=== PATIENT | male | born 1950 | race Caucasian/White ===

== ENCOUNTER 2019-09-28 15:59 | Emergency (ER) | payer OTHER, SELFPAY ==
--- NOTE | ~2019-09-28 | CT_ITS ---
EXAMINATION: CT abdomen pelvis w con DATE: 09/28/2019 18:26 INDICATION: Evaluate for colitis TECHNIQUE: Computed tomography (CT) of the abdomen and pelvis was performed without intravenous contr ast. The dose-length product was 232.27 mGy-cm. Automated exposure control and iterative reconstructi on technique were employed. COMPARISON: None. FINDINGS: There is emphysema. There is right middle lobe atelectasis/scarring. Heart size normal. The re is atherosclerosis. Moderate size hiatal hernia. There are gallstones. The spleen, pancreas, adrenal glands and right kidney are unremarkable. There i s a small subcentimeter hypodensity of the left kidney, most likely benign cysts. The stomach is mode rately dilated containing debris. There is a large amount of retained fecal material in the colon. No definite obstruction. No free air or free fluid. There is gas throughout the small bowel which is no t dilated there are multiple air-fluid levels, likely ileus. The bladder is severely distended with b ladder wall thickening. Prostate gland is enlarged. There is subcutaneous soft tissue anterior abdomi nal wall, possibly related to prior injections. Mild-moderate lumbar spondylosis. IMPRESSION: 1. Severely distended bladder with bladder wall thickening, consider cystitis in the appropriate clin ical setting. 2: Nonobstructive bowel pattern. Moderate gas and fecal material in the colon with gas throughout th e small bowel. Findings suggest ileus. 3: Cholelithiasis. Reviewed, dictated and finalized at location A. ER SETTER IMPRESSION: 1. Severely distended bladder with bladder wall thickening, consider cystitis i n the appropriate clinical setting. 2: Nonobstructive bowel pattern. Moderate gas and fecal material in the colon with gas throughout the small bowel. Findings suggest ileus. 3: Cholelithiasis.
[2019-09-28 16:15] VITALS: BP 146/75; PULSE 83; RESP 18; TEMP 37.2; O2SAT 98
--- NOTE | 2019-09-28 16:19 | ED.NAVMDI ---
HPI - Nausea/Vomiting/Diarrhea General Chief complaint: Nausea/Vomiting/Diarrhea <Leonardo King MD - Last Filed: 09/28/19 17:50> Stated complaint: diarrhea x6 days <Leonardo King MD - Last Filed: 09/28/19 17:50> Time Seen by Provider: 09/28/19 16:17 <Leonardo King MD - Last Filed: 09/28/19 17:50> Source: patient <Leonardo King MD - Last Filed: 09/28/19 17:50> Mode of arrival: ambulatory <Leonardo King MD - Last Filed: 09/28/19 17:50> Limitations: no limitations <Leonardo King MD - Last Filed: 09/28/19 17:50> History of Present Illness HPI Narrative: Pt is a 68 y/o male who has a h/o DM, that presents to the ED with c/o diarrhea for 5 days. He reports occasional melena and ABD ache. Pt denies N/V, fever, chills, or hematochezia. He has not been on any Abx recently and has not been around any one sick. Pt is unaware if he ate something to cause his diarrhea. <Leonardo King MD - Last Filed: 09/28/19 17:50> MD elicited complaint: diarrhea <Leonardo King MD - Last Filed: 09/28/19 17:50> Onset (ago): day(s) (5) <Leonardo King MD - Last Filed: 09/28/19 17:50> Description of diarrhea: black tarry <Leonardo King MD - Last Filed: 09/28/19 17:50> Associated nausea: No <Leonardo King MD - Last Filed: 09/28/19 17:50> Associated abdominal pain: Yes <MD Marco Elkins Last Filed: 09/28/19 17:50> Location of pain: diffuse <Leonardo King MD - Last Filed: 09/28/19 17:50> Quality: aching <MD Marco Elkins Last Filed: 09/28/19 17:50> Associated symptoms: denies other symptoms <Leonardo King MD - Last Filed: 09/28/19 17:50> Related Data Home medications: Home Medications Medication Instructions Recorded Confirmed blood-glucose sensor [Dexcom G6 09/28/19 09/28/19 Sensor] blood-glucose transmitter [Dexcom 09/28/19 09/28/19 G6 Transmitter] <Leonardo King MD - Last Filed: 09/28/19 17:50> Allergies/Adverse reactions: Allergies Allergy/AdvReac Type Severity Reaction Status Date / Time meperidine Allergy Unknown Unknown Verified 09/28/19 16:13 <Leonardo King MD - Last Filed: 09/28/19 17:50> Review of Systems Review of Systems: All systems reviewed & are unremarkable except as noted in HPI and below <Leonardo King MD - Last Filed: 09/28/19 17:50> Constitutional: Constitutional: Denies chills and Denies fever(s) <Leonardo King MD - Last Filed: 09/28/19 17:50> Gastrointestinal: Gastrointestinal: Reports abdominal pain (ache), Reports melena, Denies hematochezia, Reports diarrhea, Denies nausea and Denies vomiting <Leonardo King MD - Last Filed: 09/28/19 17:50> PMFSH Past Medical History Medical History: Medical History (Updated 09/28/19 @ 17:50 by Leonardo King MD) Arthritis COPD (chronic obstructive pulmonary disease) Depression Diabetes mellitus Dialysis patient while he was admitted to the hospital GI bleed HLD (hyperlipidemia) HTN (hypertension) Kidney disease Sciatica <Leonardo King MD - Last Filed: 09/28/19 17:50> Surgical History Surgical History: Surgical History (Updated 09/28/19 @ 16:29 by Kee Slade) History of cardiac catheterization <Leonardo King MD - Last Filed: 09/28/19 17:50> Family History Family History: Family History (Updated 03/28/16 @ 23:21 by DOCTOR UNKNOWN) Father Family history of lung cancer Patient's father is Family history of type 2 diabetes mellitus Mother Family history of type 2 diabetes mellitus Sibling Patient's sister is in good health Patient's brother is in good health <Leonardo King MD - Last Filed: 09/28/19 17:50> Social History Social History: Social History Smoking status: Former smoker Alcohol intake: never Gender identity (if verbalized by the patient): Male <Leonadro King MD - Last Filed: 09/01
[2019-09-28 16:31] VITALS: BP 127/70; BP 170/83; BP 181/88; PULSE 79; PULSE 83; PULSE 87
[2019-09-28 16:37] LABS: Basophils Absolute Auto 0.1 K/mm3 (0.0-0.1); Basophils Percent Auto 0.7 % (0.2-1.2); Eosinophils Absolute Auto 0.2 K/mm3 (0-0.3); Eosinophils Percent Auto 1.6 % (0-4.4); Hematocrit 36.5 % (42.0-52.0); Hemoglobin 11.4 g/dL (14.0-18.0); Immature Granulocyte Absolute 0.04 K/mm3 (0.00-0.031); Immature Granulocyte Percent A 0.3 % (0-0.5); Lymphocytes Absolute Auto 1.65 K/mm3 (0.9-3.2); Mean Corpuscular HGB Conc 31.2 g/dl (32-36); Mean Corpuscular Hemoglobin 28.3 pg (26-34); Mean Corpuscular Volume 90.6 fl (80-100); Mean Platelet Volume 10.5 fl (7.4-10.4); Monocytes Absolute Auto 1.1 K/mm3 (0.1-0.6); Monocytes Percent Auto 8.9 % (2.6-8.5); Neutrophils Absolute Auto 9.5 K/mm3 (1.3-6.7); Neutrophils Percent Auto 75.5 % (45.5-73.1); Platelet Count Result 240 k/mm3 (150-375); Red Blood Count 4.03 M/mm3 (4.6-6.20); Red Cell Distribution Width 14.3 % (11.5-14.5); White Blood Count 12.7 K/mm3 (4.5-10.0)
[2019-09-28 16:48] LABS: Alanine Aminotransferase 10 U/L (4-50); Albumin Level 4.3 g/dL (3.5-5.1); Alkaline Phosphatase 82 U/L (38-126); Aspartate Amino Transferase 23 U/L (17-59); Bilirubin,Total 0.4 mg/dL (0.2-1.3); Blood Urea Nitrogen 17 mg/dL (9-20); Calcium 8.6 mg/dL (8.4-10.2); Carbon Dioxide 28 mmol/L (22-30); Chloride 99 mmol/L (98-107); Estimated CRCL calculation 56 ml/min; Estimated Glomerular Filt Rate > 60; Glucose 244 mg/dL (75-110); Lipase 12 U/L (23-300); Potassium 3.7 mmol/L (3.4-5.0); Sodium 136 mmol/L (137-145)
[2019-09-28] MEDS: SODIUM CHLORIDE 0.9% IV 1,000 ML 999 ML IV CONT (16:52)
[2019-09-28 16:57] LABS: Add Urine Microscopic? YES; Appearance Urine Clear (Clear); Bilirubin Urine Negative (Negative); Blood Urine Negative (Negative); Color Urine Yellow (Yellow); Glucose Urine UA 1+ mg/dL (Negative); Ketones Urine Negative (Negative); Leukocyte Esterase Ur Negative LEU/UL (Negative); Mucus Urine Rare /lpf; Nitrate Urine Negative (Negative); Protein Urine Negative (Negative); Specific Grav Ur 1.011 (1.001-1.035); Urobilinogen Urine Negative mg/dL (<2.0); WBC Urine 0-3 /hpf
[2019-09-28 18:06] VITALS: BP 181/87; PULSE 80; RESP 18; O2SAT 99
[2019-09-28 19:46] VITALS: BP 166/78; PULSE 79; RESP 16; TEMP 36.7; O2SAT 100
== END 2019-09-28 19:49 | disposition home or self-care (01) ==
PROVIDERS: Family Medicine; Emergency Provider Emergency Medicine
DX: R19.7 Diarrhea, unspecified (principal); J44.9 Chronic obstructive pulmonary disease, unspecified; M19.90 Unspecified osteoarthritis, unspecified site; E11.9 Type 2 diabetes mellitus without complications; E78.5 Hyperlipidemia, unspecified; I10 Essential (primary) hypertension; N28.9 Disorder of kidney and ureter, unspecified
CPT/HCPCS: 36415; 74177; 80053; 81001; 83690; 85025; 96360; 99284; J7030; Q9967

== ENCOUNTER 2020-10-21 22:54 | Emergency (ER) | payer OTHER, SELFPAY ==
--- NOTE | ~2020-10-21 | CT_ITS ---
EXAMINATION: CT abdomen pelvis w con EXAM DATE: 10/22/2020 00:16 INDICATION: Abdominal pain. TECHNIQUE: Spiral CT of the abdomen and pelvis was performed following intravenous injection of 100 m L Omnipaque 350. Axial, coronal and sagittal images were reviewed. The dose-length product (DLP) fo r this examination was 204.79 mGy-cm. The exposure was tailored according to patient size (auto mA e xposure control), and iterative reconstruction (ASIR) was used as additional dose reduction technique . Comparison is made to prior examination from 09/28/2019, 12/14/2015. FINDINGS: The liver, spleen, adrenal glands and pancreas are unremarkable. There are gallstones with in an otherwise unremarkable gallbladder. No evidence of obstructive biliary disease. Portal and sp lenic veins are patent. Kidneys enhance symmetrically. There is no hydronephrosis. There is a 9 mm left renal lesion, measuring fat attenuation consistent with angiomyolipoma. The pro state is unremarkable. There is severe bladder distention with trabeculation, could be neurogenic gi scott that prostate is normal in size. There are several bladder diverticula, largest right posterior l aterally measuring 4 cm. There is no retroperitoneal or pelvic lymphadenopathy. There is moderate scattered arteriosclerotic disease. The appendix is normal. There is small sliding gastroesophageal hiatal hernia. Distal aspect of esop hagitis may have mild edema. There is moderate amount of colonic stool. No free intraperitoneal gas . The heart is normal in size. There are no pericardial or pleural effusions. There are 2 left lower lobe nodules identified at largest 4 mm, likely granulomas. One of them was im aged on a study in 2016 and is stable. Mild basilar emphysema. Some component of hyperinflation. No f ocal airspace disease. Moderate disc disease L5-S1. There are no osteoblastic or osteolytic lesions identified. Somesome lower abdominal subcutaneous soft tissue densities and calcifications probably injection sites, granulomas. IMPRESSION: 1. Small hiatal hernia. Possible mild esophagitis. 2. Severe bladder distention, diverticulosis. Consider neurogenic bladder. Trabeculation may indicat e chronic cystitis. 3. Moderate amount of colonic stool. Constipation? 4. Small left renal angiomyolipoma. 5. Cholelithiasis. Reviewed, dictated and finalized at location B. RING MACHINE OPERATOR IMPRESSION: 1. Small hiatal hernia. Possible mild esophagitis. 2. Severe bladder distention, diverticulosis. Consider neurogenic bladder. Tra beculation may indicate chronic cystitis. 3. Moderate amount of colonic stool. Constipation? 4. Small left renal angiomyolipoma. 5. Cholelithiasis.
[2020-10-21 23:02] VITALS: PULSE 79; RESP 18; TEMP 36.2; O2SAT 99
[2020-10-21 23:07] VITALS: O2SAT 100
[2020-10-21 23:09] VITALS: BP 161/74
[2020-10-21 23:10] VITALS: BP 161/74
[2020-10-21] MEDS: SODIUM CHLORIDE 0.9% IV 1,000 ML 999 ML IV CONT (23:13)
[2020-10-21] MEDS: ONDANSETRON INJ 4 MG/2 ML VIAL IV PUSH (23:14)
[2020-10-21 23:28] LABS: Basophils Absolute Auto 0.1 K/mm3 (0.0-0.1); Basophils Percent Auto 0.5 % (0.2-1.2); Eosinophils Percent Auto 0.1 % (0-4.4); Hematocrit 44.1 % (42.0-52.0); Hemoglobin 14.1 g/dL (14.0-18.0); Immature Granulocyte Absolute 0.05 K/mm3 (0.00-0.031); Immature Granulocyte Percent A 0.3 % (0-0.5); Lymphocytes Absolute Auto 1.37 K/mm3 (0.9-3.2); Lymphocytes Percent Auto 9.3 % (18.3-44.2); Mean Corpuscular Volume 90.7 fl (80-100); Monocytes Absolute Auto 0.8 K/mm3 (0.1-0.6); Monocytes Percent Auto 5.4 % (2.6-8.5); Neutrophils Absolute Auto 12.5 K/mm3 (1.3-6.7); Neutrophils Percent Auto 84.4 % (45.5-73.1); Platelet Count Result 262 k/mm3 (150-375); Red Blood Count 4.86 M/mm3 (4.6-6.20); Red Cell Distribution Width 13.5 % (11.5-14.5); White Blood Count 14.8 K/mm3 (4.5-10.0)
[2020-10-21 23:40] LABS: Alanine Aminotransferase 12 U/L (4-50); Albumin Level 4.4 g/dL (3.5-5.1); Alkaline Phosphatase 99 U/L (38-126); Anion Gap 9 mmol/L (8-16); Aspartate Amino Transferase 24 U/L (17-59); Bilirubin,Total 0.5 mg/dL (0.2-1.3); Blood Urea Nitrogen 19 mg/dL (9-20); Calcium 9.5 mg/dL (8.4-10.2); Carbon Dioxide 30 mmol/L (22-30); Chloride 102 mmol/L (98-107); Estimated Glomerular Filt Rate > 60; Glucose 144 mg/dL (75-110); Lipase 25 U/L (23-300); Potassium 3.9 mmol/L (3.4-5.0); Sodium 141 mmol/L (137-145)
--- NOTE | 2020-10-21 23:40 | ED.GENADULT ---
HPI - General Adult General Chief complaint: Nausea/Vomiting/Diarrhea Stated complaint: nausea and vomiting. Time Seen by Provider: 10/21/20 23:07 Source: patient and family Mode of arrival: ambulatory Limitations: no limitations History of Present Illness HPI narrative: Patient 69 years old white male presented to the ED with diffuse abdominal pain that started yesterday. Associated with a lot of vomiting. Patient denies any aggravating or relieving factors. Patient denies any fever, chills, diarrhea, shortness of breath, chest pain, back pain, headache or similar symptoms. Patient also denies any history of abdominal surgery, he have history of diabetes, hypertension, smoking. Denies drinking or using drugs. Related Data Home Medications Medication Instructions Recorded Confirmed blood-glucose sensor [Dexcom G6 09/28/19 09/28/19 Sensor] blood-glucose transmitter [Dexcom 09/28/19 09/28/19 G6 Transmitter] Allergies Allergy/AdvReac Type Severity Reaction Status Date / Time meperidine Allergy Unknown Unknown Verified 09/28/19 16:13 Review of Systems Review of Systems: Narrative: CONSTITUTIONAL: Denies fever, chills, or sweats. EYES: Denies visual changes, redness, or discharge. ENT: Denies rhinorrhea, congestion, sore throat, or otalgia. CARDIOVASCULAR: Denies chest pain, palpitations, or edema. RESPIRATORY: Denies cough or dyspnea. GASTROINTESTINAL: Denies abdominal pain, nausea, vomiting, or diarrhea. GENITOURINARY: Denies dysuria or hematuria. SKIN: Denies rash or itching. MUSCULOSKELETAL: Denies back pain, joint pain, or myalgia. NEUROLOGIC: Denies headache, numbness, or weakness. PSYCHIATRIC: Denies anxiety or depression. [facility] Past Medical History Medical History Arthritis COPD (chronic obstructive pulmonary disease) Depression Diabetes mellitus Dialysis patient while he was admitted to the hospital GI bleed HLD (hyperlipidemia) HTN (hypertension) Kidney disease Sciatica Surgical History Surgical History History of cardiac catheterization Family History Family History Father Family history of lung cancer Patient's father is Family history of type 2 diabetes mellitus Mother Family history of type 2 diabetes mellitus Sibling Patient's sister is in good health Patient's brother is in good health Social History Social History Smoking status: Former smoker Alcohol intake: never Gender identity (if verbalized by the patient): Male Exam Narrative: Exam Narrative: General appearance: Well-developed, well-nourished, looks ill, son at the bedside Skin: Normal color Head: Normocephalic, nontraumatic Eyes: Clear conjunctiva ENT: Oropharynx normal, ears normal, nose normal Neck: Supple, nontender Chest and respiratory: Airway patent, no respiratory distress, no accessory muscle use Heart: Regular rate/rhythm Abdomen: Soft, nontender, no organomegaly, quiet bowel sounds Vascular: Normal peripheral pulses, normal capillary refill. Musculoskeletal: Normal range of motion, nontender back Neurologic: Alert and oriented ?3, VETERINARIAN EPIDEMIOLOGIST is normal as tested, no gross motor deficit Course Course Emergency Course: Stable Vital Signs Vital signs: Vital Signs Temperature 36.2 C L 10/21/20 23:02 Pulse Rate 79 10/21/20 23:02 Respiratory Rate 18 10/21/20 23:02 Pulse Oximetry 99 10/21/20 23:02 Temperature 36.2 C L 10/21/20 23:02 Pulse Rate 79 10/21/20 23:02 Respiratory Rate 18 02
[2020-10-22] VITALS (9 sets, daily range): BP systolic 140–148; BP diastolic 58–66; PULSE 77–84; RESP 17–21; O2SAT 98–100
[2020-10-22 00:02] LABS: Add Urine Microscopic? YES; Appearance Urine Clear (Clear); Bilirubin Urine Negative (Negative); Blood Urine Negative (Negative); Color Urine Yellow (Yellow); Glucose Urine UA 2+ mg/dL (Negative); Ketones Urine Negative (Negative); Leukocyte Esterase Ur Negative LEU/UL (Negative); Mucus Urine Rare /lpf; Nitrate Urine Negative (Negative); Protein Urine Negative (Negative); Specific Grav Ur 1.013 (1.001-1.035); Squamous Epithelial Cell Urine Occasional /hpf (Few); Urobilinogen Urine Negative mg/dL (<2.0)
--- NOTE | 2020-10-22 00:04 | PC.NURSE ---
Patient's son, Grayson, leaves his phone number to notify him of patient's status of being admitted or discharged. Grayson's phone number is [phone].
[2020-10-22] MEDS: ONDANSETRON INJ 4 MG/2 ML VIAL IV PUSH (00:58)
--- NOTE | 2020-10-22 01:18 | PC.NURSE ---
Patient's son Grayson calls to get update on patient.
--- NOTE | 2020-10-22 01:31 | PC.NURSE ---
Contacted patient's son to inform him that his father is being discharged. He stated he will be on his way up to pick patient up.
== END 2020-10-22 01:48 | disposition home or self-care (01) ==
PROVIDERS: Emergency Provider Emergency Medicine
DX: R10.9 Unspecified abdominal pain (principal); J44.9 Chronic obstructive pulmonary disease, unspecified; E11.9 Type 2 diabetes mellitus without complications; E78.5 Hyperlipidemia, unspecified; I10 Essential (primary) hypertension; N28.9 Disorder of kidney and ureter, unspecified; Z87.891 Personal history of nicotine dependence; K44.9 Diaphragmatic hernia without obstruction or gangrene; K57.90 Diverticulosis of intestine, part unspecified, without perforation or abscess without bleeding; R93.41 Abnormal radiologic findings on diagnostic imaging of renal pelvis, ureter, or bladder; D17.71 Benign lipomatous neoplasm of kidney; K80.20 Calculus of gallbladder without cholecystitis without obstruction; M19.90 Unspecified osteoarthritis, unspecified site; R93.3 Abnormal findings on diagnostic imaging of other parts of digestive tract
CPT/HCPCS: 36415; 74177; 80053; 81001; 83690; 85025; 96361; 96374; 99284; J2405; J7030; Q9967

== ENCOUNTER 2023-10-29 00:27 | Day surgery (SDC) | payer OTHER, SELFPAY ==
[2023-10-05 15:29] VITALS: BMI 21.7
--- NOTE | 2023-10-27 08:20 | SUR.PREOP ---
Patient called regarding upcoming procedure. Reviewed preop instructions, appointment times, and procedure prep.
--- NOTE | 2023-10-28 14:28 | PM.HPGS ---
History of Present Illness History of Present Illness Consent: Risks, benefits, and alternatives have been discussed and questions answered. Patient agrees to proceed with procedure. Chief complaint: History colon polyps Narrative: Mirza Griffin is a 73 year old male Referred for colon cancer screening. Wheat years ago he had 2 adenomatous polyps removed. Review of Systems Review of Systems: All systems reviewed & are unremarkable except as noted in HPI and below PMFSH Past Medical History Medical History Arthritis COPD (chronic obstructive pulmonary disease) Depression Diabetes mellitus Dialysis patient while he was admitted to the hospital GI bleed HLD (hyperlipidemia) HTN (hypertension) Kidney disease Sciatica Surgical History Surgical History History of cardiac catheterization Family History Family History Father Family history of lung cancer Patient's father is Family history of type 2 diabetes mellitus Mother Family history of type 2 diabetes mellitus Sibling Patient's sister is in good health Patient's brother is in good health Social History Social History Smoking status: Light tobacco smoker Tobacco type: cigarettes Additional smoking assessment comments: previously heavy smoker Alcohol intake: never Substance use: never Substance use type: does not use Living arrangements: alone Gender identity (if verbalized by the patient): Male Spiritual care concerns: No Meds Home Medications and Allergies Home Medications Medication Instructions Recorded Confirmed Type blood-glucose sensor (Dexcom G6 09/28/19 10/05/23 History Sensor device) blood-glucose transmitter (Dexcom 09/28/19 10/05/23 History G6 Transmitter device) dicyclomine 20 mg tablet 20 mg PO TID PRN Abdominal 09/28/19 10/05/23 Rx cramping #10 tabs ondansetron 4 mg disintegrating 4 mg PO Q8H PRN nausea and 10/22/20 10/05/23 Rx tablet vomiting #12 tabs atorvastatin 40 mg tablet 40 mg PO DAILY 10/05/23 10/05/23 History donepezil 10 mg tablet 10 mg PO DAILY 10/05/23 10/05/23 History Allergies Allergy/AdvReac Type Severity Reaction Status Date / Time meperidine Allergy Unknown Unknown Verified 10/29/23 09:36 Exam Resp: Auscultation: clear to auscultation bilaterally Cardio: Rate: regular rate Rhythm: regular rhythm GI: GI Palp: Yes Soft to palpation and No Tenderness to palpation present (GI) Assessment and Plan Assessment and plan (1) Personal history of colonic polyps: Code(s): Z86.010 - Personal history of colonic polyps Status: Acute Assessment and Plan: Colonoscopy with possible biopsy or polypectomy or cautery or injection of substances.
[2023-10-29 09:37] VITALS: BP 118/87; PULSE 90; RESP 18; TEMP 36; O2SAT 100
--- NOTE | 2023-10-29 09:40 | SUR.PREOP ---
Patient's dexcom shows blood sugar to be 123.
[2023-10-29] MEDS: LACTATED RINGERS 1,000 ML 150 ML IV CONT (09:53)
--- NOTE | 2023-10-29 09:54 | SUR.PREOP ---
Patient left insulin pump on for the procedure.
--- NOTE | 2023-10-29 10:15 | WPDANESEPPF ---
Anes - Initial Pre Proc Eval Procedure: Operation Date: 10/29/23 10:30 Proposed Procedures p Colonoscopy - Sabas May MD Date/Time: 10/29/23 10:15 Surgeon: Sabas May MD Pre Op Diagnosis: History colon polyps Patient Data Age: 73 Gender: M Height: 1.71 m Weight: 59.9 kg Last Vital Signs Temp 36.0 C L 10/29/23 09:37 Pulse 90 10/29/23 09:37 Resp 18 10/29/23 09:37 BP 118/87 10/29/23 09:37 Pulse Ox 100 10/29/23 09:37 O2 Del Method Room Air 10/29/23 09:37 Allergies Allergy/AdvReac Type Severity Reaction Status Date / Time meperidine Allergy Unknown Unknown Verified 10/29/23 09:36 Home Medications Medication Instructions Recorded Confirmed Type blood-glucose sensor (Dexcom G6 09/28/19 10/05/23 History Sensor device) blood-glucose transmitter (Dexcom 09/28/19 10/05/23 History G6 Transmitter device) dicyclomine 20 mg tablet 20 mg PO TID PRN Abdominal 09/28/19 10/05/23 Rx cramping #10 tabs ondansetron 4 mg disintegrating 4 mg PO Q8H PRN nausea and 10/22/20 10/05/23 Rx tablet vomiting #12 tabs atorvastatin 40 mg tablet 40 mg PO DAILY 10/05/23 10/05/23 History donepezil 10 mg tablet 10 mg PO DAILY 10/05/23 10/05/23 History Patient hx anesthesia problems: none Family hx anesthesia problems: none Results Review: All pre-operative results and documents have been reviewed as part of the pre-operative evaluation. [facility] Past Medical History Medical History Arthritis COPD (chronic obstructive pulmonary disease) Depression Diabetes mellitus Dialysis patient while he was admitted to the hospital GI bleed HLD (hyperlipidemia) HTN (hypertension) Kidney disease Sciatica Surgical History Surgical History History of cardiac catheterization Family History Family History Father Family history of lung cancer Patient's father is Family history of type 2 diabetes mellitus Mother Family history of type 2 diabetes mellitus Sibling Patient's sister is in good health Patient's brother is in good health Social History Social History Smoking status: Light tobacco smoker Tobacco type: cigarettes Additional smoking assessment comments: previously heavy smoker Alcohol intake: never Substance use: never Substance use type: does not use Living arrangements: alone Gender identity (if verbalized by the patient): Male Spiritual care concerns: No Anes - Eval Final PreProcedure Day of Procedure 10/29/23 10:15 Patient weight: normal Heart: regular rate and rhythm Lungs: clear to auscultation Airway: Mallampati scale class II Neurological: alert and oriented Last oral intake: >/= 8 hours ASA classification: III Emergent: no Anesthetic plan: proceed Anesthesia type and monitoring: general GIVS and standard monitoring Results Review: All pre-operative results and documents have been reviewed as part of the pre-operative evaluation. Informed Consent: The patient's anesthetic plan and its attendant risks and benefits were discussed with the patient/family/POA. Questions were solicited and answers provided to the satisfaction of the patient/family/POA.
[2023-10-29 11:12] VITALS: BP 101/57; PULSE 65; RESP 15; O2SAT 100
[2023-10-29 11:22] VITALS: BP 142/76; PULSE 71; RESP 25; O2SAT 100
[2023-10-29 11:28] LABS: Glucose Point of Care 107 mg/dl (65-105)
[2023-10-29 11:32] VITALS: BP 152/73; PULSE 70; RESP 21; O2SAT 100
== END 2023-10-29 11:36 | disposition home or self-care (01) ==
PROVIDERS: PCP Family Medicine Sports Medicine; Visit Provider Internal Medicine Gastroenterology
PROC: 0DJD8ZZ Inspection of Lower Intestinal Tract, Via Natural or Artificial Opening Endoscopic (ICD-10-PCS; CPT 45378; principal; 2023-10-29 10:30)
DX: Z12.11 Encounter for screening for malignant neoplasm of colon (principal); D12.2 Benign neoplasm of ascending colon; D12.8 Benign neoplasm of rectum; K57.30 Diverticulosis of large intestine without perforation or abscess without bleeding; K64.8 Other hemorrhoids; E11.9 Type 2 diabetes mellitus without complications; E78.5 Hyperlipidemia, unspecified; I10 Essential (primary) hypertension; F17.210 Nicotine dependence, cigarettes, uncomplicated
CPT/HCPCS: 45380; 82948; 88305; J2704; J7120

== ENCOUNTER 2024-10-24 06:43 | Outpatient (CLI) | payer OTHER, SELFPAY ==
--- NOTE | ~2024-10-24 | US_ITS ---
EXAM: ABDOMINAL AORTIC ULTRASOUND HISTORY: SCREENING FOR AAA COMPARISON: None FINDINGS: PROXIMAL ABDOMINAL AORTA (cm):1.7 x 1.8 MID ABDOMINAL AORTA (cm): 1.5 x 1.8 DISTAL ABDOMINAL AORTA (cm): 1.4 x 1.7 DIAMETER OF THE RIGHT PROXIMAL COMMON ILIAC ARTERY (cm): 0.6 x 1.5 DIAMETER OF THE LEFT PROXIMAL COMMON ILIAC ARTERY (cm): 0.7 x 1.5 IMPRESSION: No aneurysmal dilatation of the abdominal aorta or the origin of the bilateral common iliac arteries, as detailed above. Reviewed, dictated and finalized at location A. 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
--- OUTSIDE RECORDS SUMMARY | 2024-10-24 06:46 | XMS_ITS | Clinical Summary ---
Author Organization [facility] Address [address] [place] [address] Phone Care Team Providers Care Telehealth Director Name Role Phone Unavailable Primary Care Provider Unavailabl e Allergies Active Allergy Reactions Criticality Noted Date Comments Meperidine Unknown 09/20/2018 Medications multivitamin (DAILY-WAYNE) tablet Take 1 Tablet by mouth daily. Active aspirin (ECOTRIN EC) 81 mg Tablet, Delayed Release (E.C.) Take 81 mg by mouth daily. Active insulin aspart U-100 (NovoLOG) 100 unit/mL vial Inject by subcutaneous injection. Sliding scale TID 6 Active Dexcom G6 Sensor Device DIRECTED SUBCUTANEOUS EVERY 10 DAYS (E10.65) 90 DAYS 2 Active Dexcom G6 Transmitter Device DIRECTED IN VITRO FOR CONTINUOUS GLUCOSE MONITORING (E10.65) 90 DAYS 2 Active atorvastatin (LIPITOR) 40 mg tabletIndicatio ns:Atherosclero sis of [place] coronary artery of [place] heart without angina pectoris,Type 1 diabetes mellitus with diabetic peripheral angiopathy without gangrene (CMS/HCC) Take 1 Tablet (40 mg) by mouth daily with supper. 90 Tablet 3 2 Active donepeziL (ARICEPT) 10 mg tabletIndicatio ns:Mild cognitive impairment Take 1 Tablet (10 mg) by mouth daily at bedtime. 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 09/20/2018 CAD (coronary atherosclerotic disease) 9 History of heart artery stent 09/20/2018 Metabolic encephalopathy 09/20/2018 Type 1 diabetes mellitus wit h diabetic peripheral angiopathy without gangrene 09/20/2018 Encounters Date Type Department Care Team Description 10/07/2024 External Device Data [facility] ABSTRACTION Provider, Abstract 08/09/[address] [address] Joe Forte MD Needs Appointment 07/25/[address] [address] Joe Forte MD Needs Appointment from Last 3 Months Immunizations Immunization Administration Dates Next Due (PFIZER)(12 YR UP) COVID-19 VACCINE - EMERGENCY USE AUTHORIZATION, MRNA, [id number](PF) 30 MCG/0.3 ML IM SUSP 05/27/2021,11/17/2020,10/27/2020 INFLUENZA VACCINE HIGH DOSE QUADRIVALENT 65 YR UP PF IM 05/30/2021(Deferred: Patient left) INFLUENZA VACCINE QUADRIVALE NT 6 MOS UP PF IM 06/16/2016 Influenza Seasonal Unspecifi ed Formulation IM 06/29/2022,05/30/2019 Influenza Vaccine Tri Split 4+ Im 05/10/2018 Pneumococcal Polysaccharide Vacc 23-n[place] IM SCHIP 06/16/2016 Family History Medical History Relation Name Comments Diabetes Father Diabetes Mother Relation Name Status Comments Daughter Father Maternal Grandfather Maternal Grandmother Mother Paternal Grandfather Paternal Grandmother Social History Tobacco Use Types Packs/Day Years Used Date Smoking Tobacco: Every Day Cigarettes Smokeless Tobacco: Never Tobacco Cessation:Ready to Q uit: Yes Alcohol Use Standard Drinks/Week Comments No 0 (1 standard drink = 0.6 oz pur e alcohol) once a year Financial Resource Strain Answer Date R ecorded How hard is it for you to pa y for the very basics like food, housing, medical care, and heating? Not very hard 05/27/2022 Food Insecurity Answer Date Recorded In the past 12 months, have you worried that your food would run out before you had money to buy more? Never true 05/27/2022 In the past 12 months, did y ou run out of food and didn't have money to buy more? Never true 05/27/2022 Transportation Needs Answer Date Record ed In the past 12 months, has l ack of transportation kept you from medical appointments or from getting medications? No 05/27/2022 Lack of Transportation (Non-Medical) Not on file 05/27/2022 Sex and Gender Information Value Date Recorded Sex Assigned at Not on file Legal Sex Male 7:24 AM CDT Gender Identity Not on file Sexual Orientation Not on file Last Filed Vital Signs Vital Sign Reading Time Taken Comments Blood Pressure 114/62 12/19/2022 10:41 AM CDT Pulse 103 12/19/2022 10:41 AM CDT Temperature 35.6 C (96.1 F) 12/19/2022 10:41 AM CDT Respiratory Rate 20 05/30/2021 11:0 8 AM CDT Oxygen Saturation 99% 12/19/2022 10: 41 AM CDT Inhaled Oxygen Concentration - - Weight 62.9 kg (138 lb 11.2 oz) 023 10:41 AM CDT Height 170.2 cm (5' 7 ) 12/19/2022 10:4 1 AM CDT Body Mass Index 21.72 12/19/2022 10:41 AM CDT Plan of Treatment Health Maintenance Due Date Last Done Comments DTAP/TDAP/TD VACCINES (1 - Tdap) 1971 FIT-DNA Q 3 years 1997 FIT/FOBT Q 1 year 1997 Flex Sig/CT Colonography Q 5 years 1997 RSV VACCINE (60+ or ) (1 - Risk 60-74 years 1-dose series) 2012 PNEUMOCOCCAL VACCINE 65+ YEA RS (2 of 2 - PCV) 06/16/2017 06/16/2016 DIABETES ANNUAL RETINAL EXAM 12/30/2022 12/30/2021, 04/15/2021 DIABETES MICROALBUMIN ANNUAL SCREEN 01/03/2024 01/02/2023, 06/04/2021 LDL CHOLESTEROL ANNUAL 01/03/2024 3, 06/04/2021, 01/03/2016 DIABETES HBA1C Q 6 MONTHS 02/16/20242022, 01/02/2023, 06/04/2021, Additional history exists INFLUENZA VACCINE (#1) 2024 3, 07/01/2022, 06/29/2022, Additional history exists COVID-19 Vaccine (2023-2 5 season) 2024 05/27/2021, 11/17/2020, 10/27/2020 DIABETES ANNUAL FOOT EXAM 08/17/20242022, 09/22/2022, 09/23/2021 COLORECTAL SCREENING 10/28/2033 10/29/2023 Colorectal Cancer Screening 10/28/2033 ZOSTER VACCINE Completed 01/03/2023, 07/01/2022 Procedures Procedure Name Priority Date/Time Associated Diagnosis Comments MICROALBUMIN/CREATIN INE RATIO, RANDOM UR Routine 01/02/2023 9:18 AM CDT LIPID RFLX Routine 01/02/2023 9:18 AM CDT Type 1 diabetes mellitus with diabetic peripheral angiopathy without gangrene (CMS/HCC) HEMOGLOBIN A1C Routine 01/02/2023 9:18 AM CDT Type 1 diabetes mellitus with diabetic peripheral angiopathy without gangrene (CMS/HCC) HM DIABETES EYE EXAM Routine 12/30/2021 from Last 3 Months or Most Recently Relevant to Health Maintenance Results * LIPID RFLX (01/02/2023 9:18 AM CDT) Pathologist [facility] CHOLESTEROL 121 <200 mg/dL Poptip tricia Syed HDL 61 > OR = 40 mg/dL codetagAlexander Syed TRIGLYCERIDE 97 <150 mg/dL codetagAlexander Syed LDL CALCULATED 42 mg/dL (calc) codetagAlexander Syed Comment: Reference range: <100 Desirable range <100 mg/dL for primary prevention; <70 mg/dL for patients with CHD or diabetic patients with > or = 2 CHD risk factors. LDL-C is now calculated using the Esvin calculation, which is a validated novel method providing better accuracy than the Friedewald equation in the estimation of LDL-C. Luis Armando BLACK et al. SAGAR. 2013;310(19): 0341-9262 (http://education.ClaimKit.bizHive/faq/WFS231) CHOL/HDL RATIO 2.0 <5.0 (calc) [facility] TOTAL NON-HDL CHOL(LDL+VLDL) 60 <130 mg/dL (calc) [facility] Comment: For patients with diabetes plus 1 major ASCVD risk factor, treating to a non-HDL-C goal of <100 mg/dL (LDL-C of <70 mg/dL) is considered a therapeutic option. FASTING:YES FASTING: YES Test Performed at: [facility] [address] [place] [address] Bridget Clemente Blood 01/02/2023 9:18 AM CDT 01/02/2023 9:22 AM CDT Sheela Kim NP CHEMISTRY ORDERABLES Final R esult Performing Organization Address City/[facility]/ZIP Code Phone Number [facility] [phone] [facility] [address] [place] [address] * MICROALBUMIN/CREATININE RATIO, RANDOM UR (01/02/2023 9:18 AM CDT) Creatinine, Urine 34 20 - 320 mg/dL [facility] MICROALBUMIN, URINE 1.0 See Note: mg/dL [facility] Comment: Reference Range: Reference Range Not established MICROALBUMIN/CREAT RATIO, UR 29 <30 mcg/mg creat [facility] Comment: The ADA defines abnormalities in albumin excretion as follows: Albuminuria Category Result (mcg/mg creatinine) Normal to Mildly increased <30 Moderately increased 30-299 Severely increased > OR = 300 The ADA recommends that at least two of three specimens collected within a 3-6 month period be abnormal before considering a patient to be within a diagnostic category. FASTING:YES FASTING: YES Test Performed at: [facility] [address] [address] Bridget Clemente MD 01/02/2023 9:18 AM CDT 01/02/2023 9:22 AM CDT Sheela Kim NP URINE ORDERABLES Final Resul t Performing Organization Address City/State/ZIP Al de Phone Number [facility] [phone] [facility] [place] [address] [address] [facility] [place] [address] * (ABNORMAL) HEMOGLOBIN A1C (01/02/2023 9:18 AM CDT) HEMOGLOBIN A1C 8.9(H) <5.7 % of total Hgb codetagAlexander Syed Comment: For someone without known diabetes, a hemoglobin A1c value of 6.5% or greater indicates that they may have diabetes and this should be confirmed with a follow-up test. For someone with known diabetes, a value <7% indicates that their diabetes is well controlled and a value greater than or equal to 7% indicates suboptimal control. A1c targets should be individualized based on duration of diabetes, age, comorbid conditions, and other considerations. Currently, no consensus exists regarding use of hemoglobin A1c for diagnosis of diabetes for children. ESTIMATED AVERAGE GLUCOSE (MG/DL) 209 mg/dL [facility] ESTIMATED AVERAGE GLUCOSE (MMOL/L) 11.6 mmol/L [facility] Comment: FASTING:YES FASTING: YES Test Performed at: [facility] [address] [place] [address] Bridget Mooney Blood 01/02/2023 9:18 AM CDT 01/02/2023 9:22 AM CDT us Sheela Kim BOX BENDER CHEMISTRY ORDERABLES Final R esult Performing Organization Address City/[facility] Code Phone Number [facility] [phone] [place] [address] [place] [address] * HM DIABETES EYE EXAM (12/30/2021) us Abstract Provider HEALTH MAINTENANCE Edited Resu lt - Final Performing Organization Address City/[facility] Co de Phone Number [facility] CLIA# [id number] [address] [place] [address] from Last 3 Months or Most Recently Relevant to Health Maintenance Insurance [facility] Address: [place] [address]
--- OUTSIDE RECORDS SUMMARY | 2024-10-24 06:46 | XMS_ITS | Clinical Summary ---
Author Organization [facility] Address [address] [place] [address] Phone Care Team Providers Care Recreational Programs Director Name Role Phone Unavailable Primary Care Provider Unavailabl e Medications Medication Sig Dispensed Refills Start Date End Date Status ipratropium HFA (ATROVENT HFA) 17 MCG/ACT inhaler q6h prn 0 01/11/2016 Active temazepam (RESTORIL) 7.5 MG capsule 1 qhs prn 0 01/11/2016 Active insulin glargine (LANTUS) 100 UNIT/ML injection as dir 0 01/11/2016 Active insulin aspart (NOVOLOG) 100 UNIT/ML injection as dir 0 01/11/2016 Active pantoprazole (PROTONIX) 40 MG EC tablet 1 q12h 0 01/11/2016 Active albuterol HFA (PROAIR HFA) 108 (90 Base) MCG/ACT inhaler prn q6h 0 01/11/2016 Active Social History Tobacco Use Types Packs/Day Years Used Date Smoking Tobacco: Never Assessed Sex and Gender Information Value Date Recorded Sex Assigned at Not on file Gender Identity Not on file Sexual Orientation Not on file Plan of Treatment Not on file
--- OUTSIDE RECORDS SUMMARY | 2024-10-24 06:46 | XMS_ITS | Clinical Summary ---
Author Organization [facility] Address [address] [place] [address] Care Team Providers Care Taxation Economist Name Role Phone Joe Forte MD Primary Care Provider Unav ailable Allergies Active Allergy Reactions Criticality Noted Date Comments Meperidine Unknown 09/20/2018 Medications aspirin 81 MG chewable tablet Chew 81 mg by mouth daily. Active multi vitamin/mineral s tablet Take 1 tablet by mouth daily. Active Continuous Blood Gluc Transmit (DEXCOM G6 TRANSMITTER) [facility] 11/14/2020 Active atorvastatin 40 MG tablet Take 40 mg by mouth nightly at bedtime. Active insulin aspart 100 UNIT/ML Solution Cartridge injection (CARTRIDGE) Inject into the skin 3 (three) times daily with meals. Insulin pump Active HYDROcodone-carson taminophen (NORCO) 5-325 MG tabletIndicatio ns:Acute Pain < 7 Day Supply Take 1 tablet by mouth every 4 (four) hours as needed. Indications: Acute Pain < 7 Day Supply 40 tablet 03/22/2021 Active Family History Medical History Relation Comments No Known Problems Brother 1 No Known Problems Brother 2 Cancer Father Diabetes Father Lung Cancer Father Diabetes Mother No Known Problems Sister 1 No Known Problems Sister 2 No Known Problems Son Relation Status Comments Brother 1 Alive Brother 2 Alive Daughter (Age 6) Was born a pree daryl Father Mother Sister 1 Sister 2 Son Alive Social History Tobacco Use Types Packs/Day Years Used Date Smoking Tobacco: Every Day Cigarettes 0.2 35 Smokeless Tobacco: Never Comments:3-4 cigs/day Alcohol Use Standard Drinks/Week Comments Not Currently 0 (1 standard drink = 0.6 oz pur e alcohol) Quit 1987 Sex and Gender Information Value Date Recorded Sex Assigned at Not on file Legal Sex Male 11:44 AM CDT Gender Identity Not on file Sexual Orientation Not on file Last Filed Vital Signs Vital Sign Reading Time Taken Comments Blood Pressure 110/62 03/22/2021 9:50 AM CDT Pulse 82 03/22/2021 9:50 AM CDT Temperature 36.1 C (97 F) 03/22/2021 9:50 AM CDT Respiratory Rate 16 03/22/2021 9:50 AM CDT Oxygen Saturation 98% 03/22/2021 9:50 AM CDT Inhaled Oxygen Concentration - - Weight 60.1 kg (132 lb 7.9 oz) 03/22/2021 6:31 A M CDT Height 170.2 cm (5' 7 ) 03/22/2021 6:31 AM CDT Body Mass Index 20.75 03/22/2021 6:31 AM CDT Plan of Treatment Health Maintenance Due Date Last Done Comments Colorectal Cancer Screening Colonoscopy (10 Years) 1952 Hepatitis C 1970 DTaP, Tdap and Td Vaccines ( 1 - Tdap) 1971 Zoster Vaccines (1 of 2) 2002 Pneumococcal Vaccine: 65+ Years (2 of 2 - PCV) 06/16/2017 06/16/2016 Annual Medicare Wellness Visit 2017 COVID-19 Vaccine (3 - 2023-2 5 season) 2024 11/17/2020, 10/27/2020 Influenza Adult (#1) 2024 05/30/2019, 05/10/2018, 06/16/2016 RSV Immunization or 60+ Years (1 - 1-dose 75+ series) 2027 Meningococcal B Vaccine Aged Out No l onger eligible based on patient's age to complete this topic Meningococcal Vaccine Aged Out No dwayne parihs eligible based on patient's age to complete this topic RSV Immunizations Under 20 Months Aged Out No longer eligible b ased on patient's age to complete this topic Insurance [employer] Advance Directives Documents on File Type Date Recorded Patient Cylinder Filler Expl anation Advance Directives and Living Will 03/25/2021 8:02 AM 12-14-2015 signed POA for HC * Full Code (Latest Code Status on File) Date Activated Date Inactivated Comments 12/10/2020 5:13 PM 12/11/2020 1:45 PM Care Teams Taxation Economist Relationship Specialty Start Date End Date Joe Forte MD PCP - General FAMILY PRACTICE 12/10/20
--- OUTSIDE RECORDS SUMMARY | 2024-10-24 06:46 | XMS_ITS | Referral Summary ---
Author Organization [facility] [address] Address [address] [place] [id number] Care Team Providers Care Cable Tender Name Role Phone Myron Enamorado MD Unavailable [phone] Joshua Hyatt MD [facility] Encounters Date Type Department Care Team Description 10/19/2024 Telephone [facility] Primary Care at [address] [phone] Joshua Hyatt MD Call Back 10/05/2024 10:30 AM CHIEF OPERATOR SYNTHESIS Office Visit [facility] Primary Care at [address] [phone] Joshua Hyatt MD Type 1 diabetes mellitus with diabetic polyneuropathy (HCC) (Primary Dx); Mild dementia without behavioral disturbance, psychotic disturbance, mood disturbance, or anxiety, unspecified dementia type (HCC); Hyperlipidemia due to type 1 diabetes mellitus (HCC); Atherosclerosis of [place] coronary artery of [place] heart without angina pectoris; Tobacco abuse; Screening for abdominal aortic aneurysm 09/16/2024 ACO Quality [facility] Accountable Care Organization [address] [place] [id number] Racheal Escobar MA from Last 3 Months Allergies Active Allergy Reactions Criticality Noted Date Comments Meperidine Dizziness Low Medications oskayjna-qea-VE-ly copen-lutein (SENTRY SENIOR) 0.4-300-250 mg-mcg-mcg tablet 0 0 07/23/20 16 Active blood-glucose transmitter (Dexcom G6 Transmitter) deviceIndications: Type 1 diabetes mellitus with diabetic polyneuropathy (HCC) DIRECTED IN VITRO FOR CONTINUOUS GLUCOSE MONITORING (E10.65) 90 DAYS 10/11/19 22 Active NovoLOG 100 unit/mL vial for injectionIndicatio ns:Type 1 diabetes mellitus with diabetic polyneuropathy (HCC) Inject under the skin as directed With insulin pump 01/11/20 16 Active insulin degludec (TRESIBA) 100 unit/mL (3 mL) pen for injection Inject 0.15 mL (15 Units total) under the skin nightly 3 mL 01/21/20 24 Active insulin syringe-needle U-100 0.3 mL 31 gauge x 5/16 syringe 1 each daily Use incase of pump failure 01/21/20 24 Active glucagon 1 mg kit Use as directed for low blood sugar. 2 kit 11 02/22/20 24 Active atorvastatin (LIPITOR) 40 mg tablet Take 1 tablet (40 mg total) by mouth daily 100 tablet 1 02/25/20 24 Active donepeziL (ARICEPT) 10 mg tabletIndications: Mild Alzheimer's dementia of other onset, without behavioral disturbance, psychotic disturbance, mood disturbance, or anxiety ([facility]) Take 1 tablet (10 mg total) by mouth nightly 100 tablet 3 03/01/20 24 Active lisinopriL (PRINIVIL,ZESTRIL) 2.5 mg tabletIndications: Microalbuminuria due to type 1 diabetes mellitus (CMS/HCC) ([facility]) Take 1 tablet (2.5 mg total) by mouth daily 90 tablet 4 03/07/20 24 025 Active blood-glucose meter,continuous misc Dexcom G6 farebox repairer use daily to monitor blood sugar 1 each 09/13/19 25 Active Dexcom G6 Sensor deviceIndications: Type 1 diabetes mellitus with diabetic polyneuropathy (HCC) Apply and replace one sensor per week 4 each 5 10/05/19 25 Active Dexcom G6 Sensor deviceIndications: Type 1 diabetes mellitus with diabetic polyneuropathy (HCC) USE DIRECTED SUBCUTANEOUS EVERY 10 DAYS 025 Discontin ued(Reord er) Active Problems Problem Noted Date Diagnosed Date Tobacco abuse 10/05/2024 Microalbuminuria due to type 1 diabetes mellitus (CMS/HCC) 03/07/2024 Assessment & Plan (07/06/2024 10:20 AM CHIEF OPERATOR SYNTHESIS): Continue lisinopril Type 1 diabetes mellitus with hyperglycemia 12/30 Assessment & Plan (07/07/2024 11:06 AM CHIEF OPERATOR SYNTHESIS): Stable. Follows with endocrinology. Assessment & Plan (07/06/2024 10:20 AM CHIEF OPERATOR SYNTHESIS): Chronic, uncontrolled Hemoglobin A1c 7.7%, not at goal Goal A1c at least less than 7.5% to 7% without hypoglycemia Reviewed Dexcom G7 download Average blood sugar 167 Target blood sugar range 61% High 27% Very high 10% Low 2% Very low less than 1% Patient having consistent overnight hyperglycemia between 2:00 a.m. to 5:00 a.m. Patient does not follow bolus wizard He does not bolus consistently with meals he does take a correction bolus post meals if needed Patient does not like his blood sugars to be tightly controlled overnight due to fear of low blood sugars Assessment & Plan (04/13/2024 11:33 AM CDT): Chronic problem. A1c uncontrolled; cruzito slightly from 7.8% 01/21/24 to now 7.9%. reviewed Dexcom download with Mr Griffin; persistent hyperglycemia 11p-5a. Pump setting changes: -12a increased from 0.675 to 0.7 units/hr -3a added at 0.675 units/hr Current medications: Novolog via Medtronic 670G insulin pump, bolus wizard off BR 12a 0.7, 3a 0.675, 6a 0.6, 6p 0.55 CR, CF, target not set AIT 4 hours UTD on DM eye exam (02/22/24) UTD on labs. Discussed with Mirza Griffin: Strive for regular exercise (30min most days) and diet (get at least 4-5 servings of fruit and veggies daily, avoid processed foods, increase lean protein intake and decrease carb portions as well as fruit juices, regular soda & desserts). Watch carbs and simple sugars. Check the blood sugar: Dexcom . Check the feet daily for skin breakdown and infection. Assessment & Plan (03/04/2024 1:56 PM CDT): Chronic. Has been uncontrolled but starting to improve. He has had significant elevation of blood sugars with very high A1c but over the last few months it is starting to improve. Continue insulin pump and CGM. Continue working with Endocrinology Assessment & Plan (01/21/2024 12:48 PM CDT): Goal of treatment was explained to the patient and his son Glucoses in the 130 to 180 range, mostly trying to avoid any hypoglycemia I am concerned about hypoglycemia with the patient bolusing frequently, although this has not happened in over 2 years according with his son. The download of the Dexcom CGM also does not show majors trends to hypoglycemia. I gave the patient and his sons recommendation mostly trying to avoid bolusing more often than every 4 hours to prevent insulin stacking. They were also instructed on how to use long-acting insulin. Sample of Tresiba pen was provided for him to take 15 units every 24 hours in case of pump failure Prescription for insulin syringes was sent and a correction scale with with NovoLog to be used before meals again in case of pump failure. Also prescription for Baqsimi , nasal spray glucagon was sent Hyperlipidemia due to type 1 diabetes mellitus 0 11/27/2023 Assessment & Plan (07/06/2024 10:20 AM CHIEF OPERATOR SYNTHESIS): Continue statin therapy Assessment & Plan (04/13/2024 11:14 AM CDT): Chronic problem. Controlled on current Atorvastatin 40mg. Last lipid panel: 03/01/24 LDL=58, TG=55. Assessment & Plan (03/01/2024 1:14 PM CDT): Chronic. Stable. Continue current medications. Work on diet, exercise, healthy lifestyle Assessment & Plan (11/27/2023 4:02 PM CDT): Chronic. Cholesterol is controlled with an LDL of less than 70. Continue current dose of atorvastatin. No signs of intolerance Senile purpura (CMS/HCC) 11/27/2023 Assessment & Plan (11/27/2023 4:08 PM CDT): Left elbow forearm. Reviewed diagnosis and cause. Monitor. He does seem to improve easier but he notes mostly bruises have occurred due to impact to these areas and are not spontaneous. We discussed skin fragility and need to avoid significant pressure impact across bony prominences or forearms given risk for increased bruising. He should still remain on an aspirin given his history of coronary artery disease peripheral arterial disease Diabetes mellitus type 1 with peripheral artery disease 08/17/2023 Assessment & Plan (03/01/2024 1:13 PM CDT): Chronic. Denies recent claudication. Continue risk factor modification for peripheral arterial disease. Continue diabetic meds per endocrinology Assessment & Plan (11/27/2023 3:45 PM CDT): Chronic. Patient has a degree of significant peripheral arterial disease. His pedal pulses are mildly decreased but there is no signs of ischemia. Patient denies any symptoms of claudication. Continue risk factor modification with high intensity cholesterol medication and aspirin. Stressed importance of smoking cessation Assessment & Plan (08/17/2023 6:15 PM CHIEF OPERATOR SYNTHESIS): Chronic. Needs improvement. Wants to change under cutter to [facility] specialists. Referral provided. Encouraged to continue use of insulin pump, C GM. He will continue working with his current under cutter until he can see the [facility] under cutter. Foot and eye care discussed History of colon polyps 08/17/2023 Personal history of tobacco use, presenting hazards to health 08/17/2023 Overview (08/17/2023): counseled briefly to quit Assessment & Plan (03/01/2024 1:14 PM CDT): Chronic. Needs to quit. Counseled. Patient already Assessment & Plan (11/27/2023 3:47 PM CDT): Patient is a chronic smoker. He is decreasing his tobacco use some over the last few years but has a very heavy smoking history. Given his smoking history he would be a candidate for lung cancer screening CT. We discussed briefly the recommendation for this. Patient reports he refuses to consider any lung cancer screening CT given if he had lung cancer reports he would not pursue any treatment . Full shared decision-making visit for lung cancer screening was deferred given patient quickly declined any screening option when I started to discuss TOBACCO USE - The patient is currently smoking. I recommended the patient quit smoking. Patient willingness to quit: not interested Assistance in quitting: pt refused Set quit date (ideally in 2-3 weeks): 3-10 minutes spent on counseling. [Modifier 25; 88012 3-10 min; 61592 > 10 min] Mild dementia without behavi oral disturbance, psychotic disturbance, mood disturbance, or anxiety, unspecified dementia type 05/30/2021 Assessment & Plan (03/01/2024 1:13 PM CDT): Chronic. Memory stable. Continue donepezil Assessment & Plan (11/27/2023 3:44 PM CDT): Chronic. Memory has been stable. Continue donepezil. We will need to monitor Assessment & Plan (08/17/2023 6:13 PM CHIEF OPERATOR SYNTHESIS): Mild per record. On donepezil. May have some degree of memory worsening per son. Did discuss option to consider adding a 2nd medication like memantine but deferred for now Absence of toe of right foot ([facility]) Assessment & Plan (03/01/2024 1:13 PM CDT): Chronic. History of amputation due to peripheral arterial disease. Denies sores in the feet. Routine foot care discussed Assessment & Plan (11/27/2023 3:45 PM CDT): Site of prior right 5th toe amputation is stable in appearance with no signs of any current ulcerations or wounds. No signs of infection. Monitor Assessment & Plan (08/17/2023 6:14 PM CHIEF OPERATOR SYNTHESIS): Prior amputation for combination of diabetic ulcer/ischemia. Currently healed well. Continue risk factor modification. Refer to Podiatry CAD (coronary atherosclerotic disease) 9 Assessment & Plan (03/01/2024 1:13 PM CDT): Chronic. Denies chest pain. Continue atorvastatin 40 mg daily. Encouraged patient to restart the baby aspirin. Discussed that he is on it for secondary prevention so evidence is strong to continue. Targeting LDL goal less than 70 with optimal less than 55 Assessment & Plan (11/27/2023 3:44 PM CDT): Chronic. Denies chest pain. Continue risk factor modification with high- intensity statin, aspirin. We need to get his blood pressure under better control but given this is 1st time elevation today we will see if his persistent before starting medication. Patient was counseled to stop smoking. Risks associated with smoking cessation in regards to a history of peripheral arterial disease and coronary artery disease was also discussed Assessment & Plan (08/17/2023 6:13 PM CHIEF OPERATOR SYNTHESIS): Chronic. Denies chest pain. Continue risk factor modification with ASA, high-intensity statin, blood pressure control. LDL goal less than 70. Currently does not follow with Cardiology History of heart artery stent 09/20/2018 Assessment & Plan (08/17/2023 6:13 PM CHIEF OPERATOR SYNTHESIS): Last stent was a few years ago. No longer sees cardiology. Continue risk factor modification Type 1 diabetes mellitus with diabetic polyneuro eugene 09/20/2018 Assessment & Plan (03/01/2024 1:13 PM CDT): Chronic. Needs improvement. Continue insulin pump and care per endocrinology. Continue routine foot care per DPM. We will try to get his diabetic eye exam. Counseled on diabetic diet, exercise and healthy lifestyle Assessment & Plan (11/27/2023 3:45 PM CDT): Chronic. Uncontrolled on last A1c. Patient declined repeat A1c today to assess control. He has not actually familiar with what his current insulin pump settings are which may make it difficult to adjust. He has an upcoming appointment with endocrinology in December. Stressed importance of keeping this appointment. Records request completed for diabetic eye exam. Bare foot exam was completed last visit with monofilament and full evaluation. Repeat evaluation was done today for the preulcerative areas noted last visit. There is no signs of any current ulcerative changes. Assessment & Plan (08/17/2023 6:14 PM CHIEF OPERATOR SYNTHESIS): Chronic. Has a significant amount of neuropathy affecting the feet. Sensation absent in the toes and ball of the feet to monofilament. History of prior right 5th toe amputation. 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 He will follow-up with his new PCP. Alzheimer's disease, unspecified 03/01/2024 03/01/2024 Blood pressure elevated with out history of HTN 11/27/2023 03/01/2024 Assessment & Plan (11/27/2023 3:47 PM CDT): First-time elevation. We will need to monitor this. Blood pressure goal is at least less than 140/90 with optimal less than 130/80. If remains elevated at next visit then we will likely plan to start him on an [place] inhibitor or an angiotensin receptor amina for the additional renal benefits Confusional state 07/23/2016 08/17/2023 Overview (12/05/2016): Confusional state Type 2 diabetes mellitus 01/14/2014 Overview (08/17/2023): DMII WO CMP UNCNTRLD Immunizations Immunization Administration Dates Next Due Influenza, Quadrivalent, Dian l Culture-based MDCK, Preservative Free, Antibiotic Free, Intramuscular 07/01/2022 Influenza, Quadrivalent, Hig h Dose, Preservative Free, Intrr 06/08/2023 Influenza, Quadrivalent, Spl it, Preservative Free, Intramuscular 06/16/2016 Influenza, Trivalent, IM (MDV) 06/29/2022,2018,05/10/2018 Influenza, Unspecified 05/09/2024,06/08/2023 Pfizer Sars-Cov-2 Bivalent V accination (12+ YRS) 05/09/2024 Pneumococcal Conjugate Pcv20 03/01/2024 Pneumococcal Polysaccharide PPV23 06/16/2016 ZOSTER Recombinant 01/03/2023,07/01/2022 Social History Tobacco Use Types Packs/Day Years Used Date Smoking Tobacco: Every Day Cigarettes 1 46.1 Started: 1976 Smokeless Tobacco: Never Tobacco Cessation:Ready to Q uit: Not Asked; Counseling Given: Not Answered Alcohol Use Standard Drinks/Week Comments No 0 (1 standard drink = 0.6 oz pur e alcohol) AUDIT-C Answer Date Recorded Q1: How often do you have a drink containing alcohol? Never 03/01/2024 Q2: How many drinks containi ng alcohol do you have on a typical day when you are drinking? Patient does not drink Q3: How often do you have si x or more drinks on one occasion? Never 03/01/2024 PHQ-2 Answer Date Recorded PHQ-2 Total Score (If total score is 3 or more points, staff should administer the PHQ-9) 0 10/05/2024 Sex and Gender Information Value Date Recorded Sex Assigned at Not on file Legal Sex Male 8:13 AM CHIEF OPERATOR SYNTHESIS Gender Identity Not on file Sexual Orientation Not on file Last Filed Vital Signs Vital Sign Reading Time Taken Comments Blood Pressure 138/72 10/05/2024 9:52 AM CHIEF OPERATOR SYNTHESIS Pulse 96 10/05/2024 9:52 AM CHIEF OPERATOR SYNTHESIS Temperature 36.4 C (97.6 F) 10/05/2024 9:52 AM CHIEF OPERATOR SYNTHESIS Respiratory Rate 18 07/07/2024 9:51 AM CHIEF OPERATOR SYNTHESIS Oxygen Saturation 98% 10/05/2024 9:52 AM CHIEF OPERATOR SYNTHESIS Inhaled Oxygen Concentration - - Weight 60.3 kg (133 lb) 10/05/2024 9:52 AM CHIEF OPERATOR SYNTHESIS Height 170.2 cm (5' 7 ) 10/05/2024 9:52 AM CHIEF OPERATOR SYNTHESIS Body Mass Index 20.83 10/05/2024 9:52 AM CHIEF OPERATOR SYNTHESIS Plan of Treatment Not on file Procedures Procedure Name Priority Date/Time Associated Diagnosis Comments POCT HEMOGLOBIN A1C Routine 07/04/2024 2 :00 PM CHIEF OPERATOR SYNTHESIS Type 1 diabetes mellitus with hyperglycemia (HCC) DIABETES EYE EXAM Routine 03/11/2024 4:01 PM CDT HEPATITIS C ANTIBODY Routine 03/01/2024 10:38 AM CDT Encounter for hepatitis C screening test for low risk patient EGFR Routine 03/01/2024 10:38 AM CDT Type 1 diabetes mellitus with diabetic polyneuropathy (HCC) Diabetes mellitus type 1 with peripheral artery disease (HCC) Atherosclerosis of [place] coronary artery of [place] heart without angina pectoris LIPID PANEL Routine 03/01/2024 10:38 AM CDT Type 1 diabetes mellitus with diabetic polyneuropathy (HCC) Diabetes mellitus type 1 with peripheral artery disease (HCC) Atherosclerosis of [place] coronary artery of [place] heart without angina pectoris ALBUMIN CREATININE RATIO, URINE Routine 03/01/2024 10:38 AM CDT Type 1 diabetes mellitus with diabetic polyneuropathy (HCC) Diabetes mellitus type 1 with peripheral artery disease (HCC) THYROID FUNCTION CASCADE Routine 03/01/2024 10:38 AM CDT Type 1 diabetes mellitus with diabetic polyneuropathy (HCC) Diabetes mellitus type 1 with peripheral artery disease (HCC) Atherosclerosis of [place] coronary artery of [place] heart without angina pectoris COLONOSCOPY Routine 10/29/2023 from Last 3 Months or Most Recently Relevant to Health Maintenance Results * (ABNORMAL) POCT hemoglobin A1c (07/04/2024 2:00 PM CHIEF OPERATOR SYNTHESIS) Hemoglobin A1C, POC 7.7 4.0 - 5.6 % Blood 07/04/2024 2:00 PM CHIEF OPERATOR SYNTHESIS Corey Sanchez MD POINT OF CARE TEST ORDERABLES Final Result * (ABNORMAL) DIABETES EYE EXAM (03/11/2024 4:01 PM CDT) SCRIBED DIABETIC DILATED EYE EXAM Abnormal Christiana Corona MD [facility] al Result * eGFR (03/01/2024 10:38 AM CDT) eGFR 73 >=60 mL/min/1. 73 m2 Comment: Interpretive Data Reference Interval Normal >/= 90 mL/min/1.73m2 Mildly decreased* 60 - 89 mL/min/1.73m2 Mildly to moderately decreased 45 - 59 mL/min/1.73m2 Moderately to severely decreased 30 - 44 mL/min/1.73m2 Severely decreased 15 - 29 mL/min/1.73m2 Kidney Failure < 15 mL/min/1.73m2 *Relative to young adult level Estimated glomerular filtration rate is determined by the 2020 CKD-EPI equation recommended by the National Kidney Foundation (A Unifying Approach to GFR Estimation: Recommendations of the NKF-ASK Task Force on Reassessing the Inclusion of Race in Diagnosing Kidney Disease, JASN 2020). The CKD-EPI equation should not be used for patients with unstable renal function and has not been validated in children and those over 70. Current interpretive data was last reviewed 2021. Blood 03/01/2024 10:3 8 AM CDT 03/01/2024 2:14 PM CDT Christiana Corona MD LAB BLOOD ORDERABLES F inal Result Performing Organization Address City/[facility]/ZIP Co de Phone Number ANN [facility] [id number] [address] [place] [address] * Thyroid Function [place] (03/01/2024 10:38 AM CDT) TSH 1.34 0.30 - 4.20 mcIUnit/mL Blood 03/01/2024 10:3 8 AM CDT 03/01/2024 2:12 PM CDT Christiana Corona MD LAB BLOOD ORDERABLES F inal Result ANN [place] [address] Department [place] [address] * Hepatitis C antibody Blood (03/01/2024 10:38 AM CDT) Pathologist [facility] Hep C Ab Nonreactive Nonreactive Comment: Interpretive Data Nonreactive: Antibodies to HCV not detected. Does NOT exclude the possibility of recent exposure to HCV. Equivocal: Equivocal for HCV antibodies. Supplemental molecular testing will be automatically performed to determine infection status in accordance with current CDC screening recommendations. Reactive: Positive for HCV antibodies. This may represent current or past HCV infection. Supplemental molecular testing will be automatically performed to determine current infection status in accordance with current CDC screening recommendations. Interpretive data was last revised on 2019. Blood 03/01/2024 10:3 8 AM CDT 03/01/2024 2:12 PM CDT Christiana Corona MD LAB MICROBIOLOGY - GEN ERAL ORDERABLES Final Result Performing Organization Address [facility] Co de Phone Number ANN [phone] [facility] [place] [address] * (ABNORMAL) Albumin Creatinine Ratio, Urine (03/01/2024 10:38 AM CDT) Pathologist [facility] Albumin Ur 15.3 mg/L Comment: Interpretive Data No reference range established. Current interpretive data was last revised 2019. Creatinine Ur 29.7 mg/dL [facility] Comment: Interpretive Data No reference range established. Current interpretive data was last revised 2019. Albumin Creatinine Ratio, Ur 52(H) 1 - 29 mg/g ANN Urine 03/01/2024 10:3 8 AM CDT 03/01/2024 2:12 PM CDT Christiana Corona MD LAB URINE ORDERABLES F inal Result Performing Organization Address [facility]/ZIP Co de Phone Number ANN [phone] [facility] [place] [address] * Lipid panel (03/01/2024 10:38 AM CDT) Cholesterol 130 30 - 199 mg/dL Comment: Interpretive Data Ages < or = 19 years Acceptable: <170 mg/dL Borderline high: 170-199 mg/dL High: >or= 200 mg/dL Ages > or = 20 years Desirable: <200 mg/dL Borderline high: 200-239 mg/dL High: >or= 240 mg/dL Literature References: 1. Expert Panel on Integrated Guidelines for Cardiovascular Health and Risk Reduction in Children and Adolescents. Pediatrics 2011;128:S213 2. NCEP Expert Panel. Circulation 2004;110:227 Current Interpretive Data was last revised on 2018. Triglycerides 55 <=149 mg/dL ANN Comment: Interpretive Data Ages < or = 9 years Acceptable: <75 mg/dL Borderline high: 75-99 mg/dL High: >or= 100 mg/dL Ages 10 to 20 years Acceptable: <90 mg/dL Borderline high: 90-129 mg/dL High: >or= 130 mg/dL Ages > or = 20 years Desirable: <150 mg/dL Borderline high: 150-199 mg/dL High: 200-499 mg/dL Very high: >or= 499 mg/dL Literature References: 1. Expert Panel on Integrated Guidelines for Cardiovascular Health and Risk Reduction in Children and Adolescents. Pediatrics 2011;128:S213 2. NCEP Expert Panel. Circulation 2004;110:227 Current Interpretive Data was last revised on 2018. HDL 61 >=40 mg/dL ANN Comment: Interpretive Data Ages < or = 19 years Acceptable: >45 mg/dL Borderline low: 40-45 mg/dL Low: <40 mg/dL Ages > or = 20 years Desirable: >or= 60 mg/dL Low: <40 mg/dL Literature References: 1. Expert Panel on Integrated Guidelines for Cardiovascular Health and Risk Reduction in Children and Adolescents. Pediatrics 2011;128:S213 2. NCEP Expert Panel. Circulation 2004;110:227 Current Interpretive Data was last revised on 2018. LDL, calculated 58 <=129 mg/dL ANN Comment: Interpretive Data Ages < or = 19 years Acceptable: <110 mg/dL Borderline high: 110-129 mg/dL High: >or= 130 mg/dL Ages > or = 20 years Optimal: <100 mg/dL Near optimal: 100-129 mg/dL Borderline high: 130-159 mg/dL High: >160 mg/dL Literature References: 1. Expert Panel on Integrated Guidelines for Cardiovascular Health and Risk Reduction in Children and Adolescents. Pediatrics 2011;128:S213 2. NCEP Expert Panel. Circulation 2004;110:227 Current Interpretive Data was last revised on 2018. Non-HDL Cholesterol 69 mg/dL ANN DEGROOT Comment: Interpretive Data Ages < or = 19 years Acceptable: <120 mg/dL Borderline high: 120-144 mg/dL High: >145 mg/dL Ages > or = 20 years When triglycerides are >200 mg/dL, Non-HDL cholesterol is a secondary target of therapy with treatment goals that are 30 mg/dL greater than the LDL cholesterol target. Literature References: 1. Expert Panel on Integrated Guidelines for Cardiovascular Health and Risk Reduction in Children and Adolescents. Pediatrics 2011;128:S213 2. NCEP Expert Panel. Circulation 2004;110:227 Current Interpretive Data was last revised on 2018. Chol/HDL ratio 2 ANN DEGROOT Blood 03/01/2024 10:3 8 AM CDT 03/01/2024 2:12 PM CDT Christiana Croona MD LAB BLOOD ORDERABLES F inal Result ANN DEGROOT [id number] [address] [place] [address] * COLONOSCOPY (10/29/2023) Scribed Colonoscopy Unknown Laurie Provider HEALTH MAINTENANCE Final Result from Last 3 Months or Most Recently Relevant to Health Maintenance Insurance [facility] Care Teams Cable Tender Relationship Specialty Start Date End Date Joshua Hyatt MD [address] [place] [address] PCP - General Family Practice 10/03/24 [place] [address] [place] [address] Referring Physician Endocrinology Diabetes & Metabolism 08/17/23
--- OUTSIDE RECORDS SUMMARY | 2024-10-24 06:46 | XMS_ITS ---
Author Organization [facility] ronel (HIE interaction) Address [address] [place] [address] Care Team Providers Care Activated Sludge Attendant Name Role Phone Unavailable Unavailable Unavailable Allergies, Adverse Reactions, Alerts This patient has no known allergies or adverse reactions. Problems This patient has no known problems.
--- OUTSIDE RECORDS SUMMARY | 2024-10-24 06:46 | XMS_ITS | Clinical Summary ---
Author Organization [facility] [address] [place] [address] Care Team Providers Care Scientific Process Operator Name Role Phone Myron Enamorado MD Unavailable [phone] Joshua Hyatt MD Primary Care Provi masoud Allergies Active Allergy Reactions Criticality Noted Date Comments Meperidine Dizziness Low Medications [id number]-ly copen-lutein (SENTRY SENIOR) 0.4-300-250 mg-mcg-mcg tablet 0 [...] disturbance, psychotic disturbance, mood disturbance, or anxiety (HCC) Take 1 tablet (10 mg total) by mouth nightly 100 tablet 3 03/01/20 24 Active lisinopriL (PRINIVIL,ZESTRIL) 2.5 mg tabletIndications: Microalbuminuria due to type 1 diabetes mellitus (CMS/HCC) (HCC) Take 1 tablet (2.5 mg total) by mouth daily 90 tablet 4 03/07/20 24 025 Active blood-glucose meter,continuous misc Dexcom G6 counter molder use daily to monitor blood sugar 1 [...] 03/07/2024 Assessment & Plan (07/06/2024 10:20 AM LITERARY AGENT): Continue lisinopril Type 1 diabetes mellitus with hyperglycemia 12/30 Assessment & Plan (07/07/2024 11:06 AM LITERARY AGENT): Stable. Follows with endocrinology. Assessment & Plan (07/06/2024 10:20 AM LITERARY AGENT): Chronic, uncontrolled Hemoglobin A1c 7.7%, not at [...] 11/27/2023 Assessment & Plan (07/06/2024 10:20 AM LITERARY AGENT): Continue statin therapy Assessment & Plan (04/13/2024 [...] cessation Assessment & Plan (08/17/2023 6:15 PM LITERARY AGENT): Chronic. Needs improvement. Wants to change quill fixer to [facility] specialists. Referral provided. Encouraged to continue use of insulin pump, C GM. He will continue working with his current quill fixer until he can see the [facility] quill fixer. Foot and eye care discussed History of [...] 3-10 minutes spent on counseling. 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 Memory stable. Continue donepezil Assessment & Plan (11/27/2023 3:44 PM CDT): Chronic. Memory has been stable. Continue donepezil. We will need to monitor Assessment & Plan (08/17/2023 6:13 PM LITERARY AGENT): Mild per record. On donepezil. May have some degree of memory worsening per son. Did discuss option to consider adding a 2nd medication like memantine but deferred for now Absence of toe of right foot ([facility]/HCC) Assessment & Plan (03/01/2024 1:13 PM CDT): Chronic. History of amputation due to peripheral arterial disease. Denies sores in the feet. Routine foot care discussed Assessment & Plan (11/27/2023 3:45 PM CDT): Site of prior right 5th toe amputation is stable in appearance with no signs of any current ulcerations or wounds. No signs of infection. Monitor Assessment & Plan (08/17/2023 6:14 PM LITERARY AGENT): Prior amputation for combination of diabetic ulcer/ischemia. [...] discussed Assessment & Plan (08/17/2023 6:13 PM LITERARY AGENT): Chronic. Denies chest pain. Continue risk factor modification with ASA, high-intensity statin, blood pressure control. LDL goal less than 70. Currently does not follow with Cardiology History of heart artery stent 09/20/2018 Assessment & Plan (08/17/2023 6:13 PM LITERARY AGENT): Last stent was a few years ago. [...] changes. Assessment & Plan (08/17/2023 6:14 PM LITERARY AGENT): Chronic. 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 He will [...] 01/14/2014 Overview (08/17/2023): DMII WO CMP UNCNTRLD Encounters Date Type Department Care Team Description 10/19/2024 Telephone [facility] Primary [facility] at [address] [place] [phone] Joshua Hyatt MD Call Back 10/05/2024 10:30 AM LITERARY AGENT Office Visit [facility] Primary [facility] at [address] [place] [phone] Joshua Hyatt MD Type 1 diabetes mellitus with diabetic polyneuropathy (HCC) (Primary Dx); Mild dementia without behavioral disturbance, psychotic disturbance, mood disturbance, or anxiety, unspecified dementia type (HCC); Hyperlipidemia due to type 1 diabetes mellitus (HCC); Atherosclerosis of cahto coronary artery of cahto heart without angina pectoris; Tobacco abuse; Screening for abdominal aortic aneurysm 09/16/2024 ACO Quality [facility] Accountable Care Organization [address] [place] [id number] Racheal Escobar MA from Last 3 Months Immunizations Immunization Administration Dates Next Due Influenza, Quadrivalent, Dian l Culture-based MDCK, Preservative Free, Antibiotic Free, Intramuscular 07/01/2022 Influenza, Quadrivalent, Hig h Dose, Preservative Free, Intrr 06/08/2023 Influenza, Quadrivalent, Spl it, Preservative Free, Intramuscular 06/16/2016 Influenza, Trivalent, IM (MDV) 06/29/2022,2018,05/10/2018 Influenza, Unspecified 05/09/2024,06/08/2023 Pretio Interactive Sars-Cov-2 Bivalent V accination (12+ YRS) 05/09/2024 Pneumococcal Conjugate Pcv20 03/01/2024 Pneumococcal Polysaccharide PPV23 06/16/2016 ZOSTER Recombinant 01/03/2023,07/01/2022 Surgical History Surgery Date Site/Laterality Comments CARDIAC CATHETERIZATION 08/31/2015 - 08/30/2016 left heart cath with PCI FEMORAL ARTERY STENT 11/29/2020 - 12/28/2020 Bilateral Aortogram c B LE RO R SFA 4.5x15 mm Resolute Edna stent placement R AK PA 4.5x22 Resolute Topher stent placement TOE AMPUTATION 02/28/2021 - 03/30/2021 Right 5th toe for DM ulcer Medical History Medical History Date Comments Hyperlipidemia Hyperlipidemia Type 1 diabetes mellitus (HCC) D iabetes Hx Other Medical Orthostatic hyp otension Diabetic neuropathy (HCC) Neurop athy Hx Other Medical Hx of syncope Pressure ulcer, heel in 2020. re covered Amputation of fifth toe of right foot (CMS/HCC) (HCC) Peripheral vascular disease (HCC) Family History Medical History Relation Name Comments Diabetes Father Lung cancer Father Cancer, lung; C ause of : Cancer, lung Diabetes Mother Diabetes type II Other 1 Family hist ory of Diabetes -Type II; Hyperlipidemia Other 2 Family histor y of Hyperlipidemia; Hypertension Other 3 Family history of Hypertension; Colon cancer Neg Hx Relation Name Status Comments Father Mother Other 1 Other 2 Other 3 Social History Tobacco Use Types Packs/Day Years [...] on file Legal Sex Male 8:13 AM LITERARY AGENT Gender Identity Not on file Sexual Orientation Not on file Obstetrics History Last Filed Vital Signs Vital Sign Reading Time Taken Comments Blood Pressure 138/72 10/05/2024 9:52 AM LITERARY AGENT Pulse 96 10/05/2024 9:52 AM LITERARY AGENT Temperature 36.4 C (97.6 F) 10/05/2024 9:52 AM LITERARY AGENT Respiratory Rate 18 07/07/2024 9:51 AM LITERARY AGENT Oxygen Saturation 98% 10/05/2024 9:52 AM LITERARY AGENT Inhaled Oxygen Concentration - - Weight 60.3 kg (133 lb) 10/05/2024 9:52 AM LITERARY AGENT Height 170.2 cm (5' 7 ) 10/05/2024 9:52 AM LITERARY AGENT Body Mass Index 20.83 10/05/2024 9:52 AM LITERARY AGENT Plan of Treatment Health Maintenance Due Date Last Done Comments DTaP/Tdap/Td Vaccine (1 - Tdap) 1961 Hepatitis B Screening 1970 Abdominal Aortic Aneurysm (AAA) Screen 2017 Well Visit 65+ 05/27/2023 05/27/2022, 05/30/2021 Covid-19 Vaccine ( season) 2024 05/09/2024, 06/08/2023, 05/27/2021, Additional history exists Fall Risk Assessment 08/17/2024 08/17/2023 Lung Cancer Screening 11/05/2024 Postpo velma from 2002 (Patient declined, but will receive in the future) Hemoglobin A1C 01/01/2025 07/04/2024, 03/31, 01/21/2024, Additional history exists Albumin Creatinine Ratio, Urine 03/01/2025 03/01/2024, 05/11/2023, 01/02/2023 Lipid Panel 03/01/2025 03/01/2024, 05/01, 01/02/2023 TSH Level 03/01/2025 03/01/2024, 05/01, 05/11/2023 eGFR 03/01/2025 03/01/2024, 01/02/2023 Dilated Eye Exam 03/11/2025 03/11/2024, 01/05/2023 Foot Exam 07/04/2025 07/04/2024, 08/17/2023 Depression Screening 10/05/2025 10/05/2024, 03/01/2024, 08/17/2023 Colon Cancer Screening-Colonoscopy 10/28/2033 10/29/2023 Zoster Vaccine Completed 01/03/2023, 07/01/2022 Hepatitis C Screening Completed 03/01/2024 Pneumococcal vaccine 65+ Completed 03/01/2024, 05/31 Influenza Vaccine Completed 05/09/2024, , 06/08/2023, Additional history exists Procedures Procedure Name Priority Date/Time Associated Diagnosis Comments POCT HEMOGLOBIN A1C Routine 07/04/2024 2 :00 PM LITERARY AGENT Type 1 diabetes mellitus with hyperglycemia (HCC) HM DIABETES EYE EXAM Routine 03/11/2024 4:01 PM CDT HEPATITIS C ANTIBODY Routine 03/01/2024 10:38 AM CDT Encounter for hepatitis C screening test for low risk patient EGFR Routine 03/01/2024 10:38 AM CDT Type 1 diabetes mellitus with diabetic polyneuropathy (HCC) Diabetes mellitus type 1 with peripheral artery disease (HCC) Atherosclerosis of cahto coronary artery of cahto heart without angina pectoris LIPID PANEL Routine 03/01/2024 10:38 AM CDT Type 1 diabetes mellitus with diabetic polyneuropathy (HCC) Diabetes mellitus type 1 with peripheral artery disease (HCC) Atherosclerosis of cahto coronary artery of cahto heart without angina pectoris ALBUMIN CREATININE RATIO, URINE Routine 03/01/2024 10:38 AM CDT Type 1 diabetes mellitus with diabetic polyneuropathy (HCC) Diabetes mellitus type 1 with peripheral artery disease (HCC) THYROID FUNCTION CASCADE Routine 03/01/2024 10:38 AM CDT Type 1 diabetes mellitus with diabetic polyneuropathy (HCC) Diabetes mellitus type 1 with peripheral artery disease (HCC) Atherosclerosis of cahto coronary artery of cahto heart without angina pectoris COLONOSCOPY Routine 10/29/2023 from Last 3 Months or Most Recently Relevant to Health Maintenance Results * (ABNORMAL) POCT hemoglobin A1c (07/04/2024 2:00 PM LITERARY AGENT) Hemoglobin A1C, POC 7.7 4.0 - 5.6 % Blood 07/04/2024 2:00 PM LITERARY AGENT Corey Sanchez MD POINT OF CARE TEST ORDERABLES Final Result * (ABNORMAL) DIABETES EYE EXAM (03/11/2024 4:01 PM CDT) SCRIBED DIABETIC DILATED EYE EXAM Abnormal Christiana Corona MD HEALTH MAINTENANCE Fin al Result * eGFR (03/01/2024 10:38 AM [...] ORDERABLES F inal Result Performing Organization Address [facility] Co de Phone Number ANN DEGROOT [phone] [address] [employer] [place], [place] [phone] * Thyroid Function War[place] (03/01/2024 10:38 AM CDT) [facility] TSH 1.34 0.30 - 4.20 mcIUnit/mL Blood 03/01/2024 10:3 8 AM CDT 03/01/2024 2:12 PM CDT Christiana Corona MD LAB BLOOD ORDERABLES F inal Result Performing Organization Address [facility] Phone Number ANN DEGROOT [phone] [address] [employer] [place] [address] * Hepatitis C antibody Blood (03/01/2024 10:38 AM CDT) [facility] Hep C Ab Nonreactive Nonreactive Comment: Interpretive [...] ERAL ORDERABLES Final Result Performing Organization Address [facility] Co de Phone Number ANN DEGROOT [phone] [address] [facility] [employer] [place], [place] [phone] * (ABNORMAL) Albumin Creatinine Ratio, Urine (03/01/2024 10:38 AM CDT) Albumin Ur 15.3 mg/L Comment: Interpretive Data No reference range established. Current interpretive data was last revised 2019. Creatinine Ur 29.7 mg/dL ANN Comment: Interpretive Data No reference range established. Current interpretive data was last revised 2019. Albumin Creatinine Ratio, Ur 52(H) 1 - 29 mg/g ANN Urine 03/01/2024 10:3 8 AM CDT 03/01/2024 2:12 PM CDT us Christiana Corona MD LAB URINE ORDERABLES F inal Result ANN [address] [address] Department [place] [address] * Lipid panel (03/01/2024 10:38 AM CDT) [...] on 2018. HDL 61 >=40 mg/dL ANN DEGROOT Comment: Interpretive Data Ages [...] 2018. LDL, calculated 58 <=129 mg/dL ANN DEGROOT Comment: Interpretive Data Ages [...] Pediatrics 2011;128:S213 2. NCEP Expert Panel. Circulation 2003;110:227 Current Interpretive Data was last revised on 2018. Chol/HDL ratio 2 ANN DEGROOT Blood 03/01/2024 10:3 8 AM CDT 03/01/2024 2:12 PM CDT Christiana Corona MD LAB [place] [address] [address] Department [place] [address] * COLONOSCOPY (10/29/2023) Scribed Colonoscopy Unknown us Historical Provider HEALTH MAINTENANCE Final Result from Last 3 Months or Most Recently Relevant to Health Maintenance Insurance [employer] Care Teams Scientific Process Operator Relationship Specialty Start Date End Date Joshua Hyatt MD [address] [place] [address] PCP - General Family Practice 10/03/24 [place] [address] [place] [address] Referring Physician Endocrinology Diabetes & Metabolism 08/17/23
== END 2024-10-24 06:44 | disposition home or self-care (01) ==
DX: Z13.6 Encounter for screening for cardiovascular disorders (principal)
CPT/HCPCS: 76706

== ENCOUNTER 2025-03-22 13:22 | Inpatient (IN) | payer OTHER, SELFPAY ==
[2025-03-22] VITALS (32 sets, daily range): BP systolic 105–155; BP diastolic 54–74; PULSE 73–88; RESP 12–27; TEMP 34.1–36.7; O2SAT 97–100; BMI 18.3; BMI 18.9
--- NOTE | ~2025-03-22 | CT_ITS ---
History: Unresponsive PROCEDURE: CT head without contrast. COMPARISON: 02/14/2016 TECHNIQUE: Axial imaging of the head performed from the skull base to the vertex without IV contrast. Sagittal a nd coronal reformations obtained. 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 The ventricles are enlarged. The dilatation of the ventricles is proportional to the degree of sulcal prominence, not uncommon in the senescent brain. Decreased attenuation is identified within the periventricular white matter, likely secondary to micr ovascular ischemic disease, in a patient of this age. More focal decreased attenuation identified adjacent to the body of the left lateral ventricle, likel y representing prior lacunar infarct. This is an interval change from the 2016 examination. There is no mass, mass effect or midline shift. There is no abnormal extra-axial fluid collection or intracranial hemorrhage. Visualized paranasal sinuses are symmetric and unchanged. The mastoid air cells are well aerated. Multiple hyper attenuating foci within the paranasal sinuses, left orbit, and middle skull base repre senting prior penetrating trauma and fracture deformities, unchanged from 2016. No acute displaced fractures within the overlying cranium. Impression: Sequelae of prior left lacunar infarct, an interval change from [address] examination of the head without acute intracranial hemorrhage or suspicious mass effect. Redemonstration of swain matter heterotopia. Reviewed, dictated and finalized at location A. Impression: Sequelae of prior left lacunar infarct, an interval change from [address] Otherwise stable CT examination of the head without acute intracranial hemorrha ge or suspicious mass effect. Redemonstration of swain matter heterotopia.
--- NOTE | ~2025-03-22 | CT_ITS ---
EXAMINATION: CT abdomen pelvis wo/w con DATE: 03/28/2025 14:44 INDICATION: Urinary tension. Microscopic hematuria. TECHNIQUE: Computed tomography (CT) of the abdomen and pelvis was performed without intravenous contr ast. CT of the abdomen and pelvis was then performed with a total of 130 mL Omnipaque-350 intravenous contrast using a double-bolus technique for simultaneous opacification of the renal parenchyma and r enal collecting system. Automated exposure control and iterative reconstruction technique were employ ed. The dose-length product was 546.53 mGy-cm. COMPARISON: None FINDINGS: Moderate emphysema and mild discoid atelectasis at the bilateral lung bases heart size is normal. Ath erosclerotic coronary artery calcific. No pericardial or pleural effusion. Small sliding-type hiatal hernia. Multiple small calcified gallstones in the normal decompressed gallbladder. Liver, spleen, pa ncreas and bilateral adrenal glands are normal. Large amount of stool scattered throughout the colon. Small bowel and appendix are normal with no bowel obstruction. No urolithiasis. Kidneys demonstrate symmetric enhancement with couple small bilateral low-attenuatio n renal cysts the larger on the left measuring 6 mm in maximal diameter. The bilateral renal collecti ng systems, bilateral proximal ureters and distalmost left ureter are opacified with contrast. Extens verna regions of the mid portions of both ureters remain unopacified with contrast. Small amount of gas and a Nielsen catheter in the bladder. There is also excreted contrast within the incompletely distend ed bladder which demonstrates irregular mucosal contour as well as thickened wall of the bladder. Con trast also extends into a prominent bladder diverticulum arising from the right trigonal region. Pros tatomegaly measuring 5.1 x 3.5 cm. No free intraperitoneal gas or fluid. Small partially calcified lenticular masses in the intrapelvic also contains fat, left greater than right with the multiplicity, location and calcification suggesti ng injection granulomata. No pathologically enlarged abdominal or pelvic lymphadenopathy. Severe disc height loss at L5-S1. Otherwise mild lumbar spondylosis. IMPRESSION: 1. Prominent wall thickening of the bladder with irregular mucosal surface. This could be due to sequ johnnie chronic outlet obstruction exacerbated by decompressed state, cystitis either acute or chronic or bladder cancer. Consider cystoscopy for further evaluation. 2. Small bilateral renal cysts. Otherwise normal kidneys with no abnormally enhancing lesions or urol ithiasis. 3. No urothelial irregularities identified in the contrast opacified portions of the bilateral renal collecting systems and proximal bilateral distal left ureters. Large portion of both ureters remain u nopacified with contrast limiting evaluation. 4. Cholelithiasis. 5. Moderate emphysema. 6. Small sliding-type hiatal hernia. Reviewed, dictated and finalized at location A. IMPRESSION: 1. Prominent wall thickening of the bladder with irregular mucosal surface. Thi s could be due to sequela chronic outlet obstruction exacerbated by decompresse d state, cystitis either acute or chronic or bladder cancer. Consider cystoscop y for further evaluation. 2. Small bilateral renal cysts. Otherwise normal kidneys with no abnormally enh ancing lesions or urolithiasis. 3. No urothelial irregularities identified in the contrast opacified portions o f the bilateral renal collecting systems and proximal bilateral distal left ure ters. Large portion of both ureters remain unopacified with contrast limiting e valuation. 4. Cholelithiasis. 5. Moderate emphysema. 6. Small sliding-type hiatal hernia.
--- NOTE | ~2025-03-22 | XR_ITS ---
XR chest 1V portable 03/22/2025 14:14 Indication: Patient unresponsive Procedure: AP portable chest Comparison: 02/23/2016 Findings: Heart size normal. No focal air space disease, pulmonary edema, pleural effusion or suspect ed pneumothorax. No pleural effusion or pneumothorax. No acute osseous abnormality. Impression: 1: No acute cardiopulmonary disease. Reviewed, dictated and finalized at location A. Impression: 1: No acute cardiopulmonary disease.
--- NOTE | ~2025-03-22 | XR_ITS ---
Exam: Abdomen 1V HISTORY: ABDOMINAL PAIN / VOMITING COMPARISON: Abdominal pain and vomiting TECHNIQUE: Supine images of the abdomen FINDINGS: Bowel gas pattern is nonspecific and non-obstructive. There is no free air or deep sulci. Air is identified within the colon and rectum. No pathologic calcifications are seen. Lung bases are unremarkable. Bones and soft tissues are unremarkable. IMPRESSION: Nonspecific, nonobstructive bowel gas pattern. Reviewed, dictated and finalized at location A.
--- NOTE | ~2025-03-22 | XR_ITS ---
EXAMINATION: XR chest 1V portable DATE: 03/23/2025 19:58 INDICATION: Altered mental status TECHNIQUE: frontal view of the chest was obtained. COMPARISON: Chest radiograph dated 03/22/2025 FINDINGS: Small nodular opacities projecting over the anterior left sixth and anterior right fifth ribs, potent ially representing nipple shadows. No other airspace opacities, pulmonary edema, pleural effusion or pneumothorax. The cardiomediastinal silhouette is normal. Visualized bones and soft tissues are unrem arkable. IMPRESSION: 1. No acute cardiopulmonary disease. 2. A couple small nodular opacities projecting over the left sixth and right fifth ribs most likely r epresenting nipple shadows. Could consider follow-up radiograph with nipple markers for further evalu ation with low-dose noncontrast chest CT. Reviewed, dictated and finalized at location A. IMPRESSION: 1. No acute cardiopulmonary disease. 2. A couple small nodular opacities projecting over the left sixth and right fi fth ribs most likely representing nipple shadows. Could consider follow-up radi ograph with nipple markers for further evaluation with low-dose noncontrast nakul st CT.
--- NOTE | ~2025-03-22 | CT_ITS ---
History: Unresponsive PROCEDURE: CT cervical spine without intravenous contrast. COMPARISON: 11/25/2015 TECHNIQUE: Multiple contiguous axial images of the cervical spine were performed without the administration of i ntravenous contrast. DLP: 249 mGy-cm FINDINGS: Straightening and slight reversal of the normal curvature of the cervical spine is identified, likely muscular in origin. 2.7 mm of anterolisthesis of C2 onto C3. This demonstrates progression from 2016 examination. Significant degenerative disease is redemonstrated most prominent at the levels of C4/C5, C5/C6 and C 6/C7 with osteophyte formation, disc space narrowing, endplate changes, sclerosis and subchondral cys t formation. No acute fractures are present. Panlobular emphysematous disease is identified with biapical bleb formation. No soft tissue abnormality is appreciated. The airway is patent. Impression: Severe degenerative disease, as detailed above, without acute fracture. Reviewed, dictated and finalized at location A. Impression: Severe degenerative disease, as detailed above, without acute fracture.
--- NOTE | 2025-03-22 13:24 | ECG_ITS ---
Test Date: 2025-03-22 13:28:41 Measurements Intervals [place] Rate: 82 P: 70 OK: 148 QRS: 70 QRSD: 90 T: 82 QT: 389 QTc: 455 Interpretive Statements SINUS RHYTHM ARTIFACT LIMITS INTERPRETATION NORMAL ECG No previous ECG available for comparison Electronically Signed On 03-22-2025 14:12:19 CDT by Manuel Guevara M.D.
--- NOTE | 2025-03-22 13:32 | PC.NURSE ---
insulin pump turned off at this time
[2025-03-22 13:53] LABS: Add Urine Microscopic? NO; Appearance Urine Clear (Clear); Glucose Urine UA Negative (Negative); Leukocyte Esterase Ur Negative LEU/UL (Negative); Nitrate Urine Negative (Negative); Specific Grav Ur 1.007 (1.001-1.035)
--- NOTE | 2025-03-22 13:59 | ED_ITS ---
HPI - General Adult General Chief complaint: Altered Mental Status Stated complaint: ams Time Seen by Provider: 03/22/25 13:58 Source: EMS Mode of arrival: EMS History of Present Illness HPI narrative: 74 YEARS OLD WHITE MALE CAME FROM HOME BY AMBULANCE WITH LOW BLOOD GLUCOSE./20 PER EMS PATIENT'S SON HAD NOT HEARD FROM PATIENT'S IN A COUPLE HOURS, LAST PHONE CALL BETWEEN THE PATIENT AND HIS SON WAS 11:00 A.M. TODAY. AMBULANCE ARRIVED AT HIS HOUSE PATIENT WAS SLUMPED OVER IN A CHAIR PATIENT WAS NOT FOLLOWING COMMANDS AND BLOOD GLUCOSE WAS 20 PATIENT ARRIVED TO THE ED ORIENTED TIME 1. HISTORY OF HYPERTENSION, DIABETES HYPERLIPIDEMIA PATIENT LIVES ALONE. PATIENT DENIES ANY PAIN. PATIENT HAS SINUS TELLING ME THAT PATIENT STARTED INSULIN PUMP 5 DAYS AGO, HIS NOT FAMILIAR HOW TO USE IT, POSSIBLY TAKING EXTRA INSULIN DOES SUBCUTANEOUS WITHOUT THE INSULIN PUMP. Related Data Home Medications ?Medication ?Instructions ?Recorded ?Confirmed ?Last Taken ?Type blood-glucose sensor (Dexcom G6 09/28/19 10/05/23 Unknown History Sensor device) blood-glucose transmitter (Dexcom 09/28/19 10/05/23 Unknown History G6 Transmitter device) atorvastatin 40 mg tablet 40 mg PO DAILY 10/05/23 10/05/23 Unknown History donepezil 10 mg tablet 10 mg PO DAILY 10/05/23 10/05/23 Unknown History Allergies Allergy/AdvReac Type Severity Reaction Status Date / Time meperidine Allergy Unknown Unknown Verified 10/29/23 09:36 Review of Systems 2 Review of Systems: ROS unobtainable: Yes unobtainable due to mental status PMFSH Past Medical History Medical History Depression Diabetes mellitus Sciatica Arthritis Dialysis patient while he was admitted to the [facility] Kidney disease GI bleed COPD (chronic obstructive pulmonary disease) HLD (hyperlipidemia) HTN (hypertension) Surgical History Surgical History History of cardiac catheterization Family History Family History Father Family history of lung cancer Patient's father is Family history of type 2 diabetes mellitus Mother Family history of type 2 diabetes mellitus Sibling Patient's sister is in good health Patient's brother is in good health Social History Social History Smoking status: Light tobacco smoker Tobacco type: cigarettes Additional smoking assessment comments: previously heavy smoker Alcohol intake: never Substance use: never Substance use type: does not use Living arrangements: alone Gender identity (if verbalized by the patient): Male Spiritual care concerns: No Exam 2 Narrative: GENERAL APPEARANCE: WELL-DEVELOPED, WELL-NOURISHED SKIN: NORMAL COLOR HEAD: NORMOCEPHALIC, NONTRAUMATIC EYES: CLEAR CONJUNCTIVA ENT: OROPHARYNX NORMAL, EARS NORMAL, NOSE NORMAL NECK: SUPPLE, NONTENDER CHEST AND RESPIRATORY: AIRWAY PATENT, NO RESPIRATORY DISTRESS, NO ACCESSORY MUSCLE USE HEART: REGULAR RATE/RHYTHM ABDOMEN: SOFT, NONTENDER, NO ORGANOMEGALY, QUIET BOWEL SOUNDS VASCULAR: NORMAL PERIPHERAL PULSES, NORMAL CAPILLARY REFILL. MUSCULOSKELETAL: NORMAL RANGE OF MOTION, NONTENDER BACK NEUROLOGIC: ALERT AND ORIENTED TO HIS NAME, AGE AND THE YEAR. Course Vital Signs Vital signs: Vital Signs Pulse Rate 82 03/22/25 13:26 Respiratory Rate 27 H 03/22/25 13:26 Blood Pressure 155/74 H 03/22/25 13:26 Pulse Oximetry 99 03/22/25 13:26 Oxygen Delivery Room Air 03/22/25 13:26 Temperature 36.0 C L 03/22/25 16:45 Pulse Rate 77 03/22/25 16:45 Respiratory Rate 15 03/22/25 16:45 Blood Pressure 116/59 L 03/22/25 16:43 Pulse Oximetry 100 03/22/25 16:45 Oxygen Delivery Room Air 03/22/25 13:59 Medical Decision Making [facility] Narrative Medical decision making narrative: PATIENT CAME TO THE ED WITH HYPOGLYCEMIA, A NEW INSULIN PUMP 5 DAYS AGO VITAL SIGNS SHOWING BLOOD PRESSURE 155/74, RESPIRATORY RATE 27, TEMPERATURE 34.2? PHYSICAL EXAMINATION SHOWING ASYMPTOMATIC PATIENT, DENYING ANY SYMPTOMS, PHYSICAL EXAMINATION IS UNREMARKABLE DIFFERENTIAL DIAGNOSIS INCLUDE HYPOGLYCEMIA, HYPOTHERMIA, ELECTROLYTE IMBALANCE, DEHYDRATION, SEPSIS, ALCOHOL AND DRUG USE, , HEAVY EXERTION, CVA BLOOD WORKUP TODAY INCLUDES CBC, CMP, BLOOD CULTURE, LACTIC ACID, CPK, TSH, TROPONIN SHOWED WBC 13.2, SODIUM IS 132, POTASSIUM 3.3, LACTIC ACID 3.0 URINALYSIS SHOWED NO ACUTE ABNORMALITIES CHEST X-RAY SHOWED NO ACUTE ABNORMALITIES, CT SCAN OF THE HEAD AND CERVICAL SPINE WITHOUT CONTRAST SHOWED NO ACUTE ABNORMALITIES. ADMIT TO HOSPITALIST DIAGNOSIS HYPOGLYCEMIA, HYPOTHERMIA Differential Diagnosis Differential Diagnosis: ABOVE Vital Signs Vital Signs: Vital Signs Pulse Rate 82 03/22/25 13:26 Respiratory Rate 27 H 03/22/25 13:26 Blood Pressure 155/74 H 03/22/25 13:26 Pulse Oximetry 99 03/22/25 13:26 Oxygen Delivery Room Air 03/22/25 13:26 Temperature 36.0 C L 03/22/25 16:45 Pulse Rate 77 03/22/25 16:45 Respiratory Rate 15 03/22/25 16:45 Blood Pressure 116/59 L 03/22/25 16:43 Pulse Oximetry 100 03/22/25 16:45 Oxygen Delivery Room Air 03/22/25 13:59 Lab Data 03/22/25 13:52 03/22/25 13:52 Labs: Lab Results 03/22/25 03/22/25 03/22/25 Range/Units 13:44 13:52 13:53 WBC 13.2 H (4.5-10.0) K/mm3 RBC 4.71 (4.6-6.20) M/mm3 Hgb 13.5 L (14.0-18.0) g/dL Hct 42.6 (42.0-52.0) % MCV 90.4 (80-100) fl MCH 28.7 (26-34) pg MCHC 31.7 L (32-36) g/dl RDW 13.9 (11.5-14.5) % Plt Count 297 (150-375) k/mm3 MPV 9.5 (7.4-10.4) fl Immature Gran % (Auto) 0.4 (0-0.5) % Neut % (Auto) 86.3 H (45.5-73.1) % Lymph % (Auto) 6.3 L (18.3-44.2) % [place] % (Auto) 6.4 (2.6-8.5) % Eos % (Auto) 0.3 (0-4.4) % Baso % (Auto) 0.3 (0.2-1.2) % Lymph # (Auto) 0.83 L (0.9-3.2) K/mm3 [place] # (Auto) 0.9 H (0.1-0.6) K/mm3 Eos # (Auto) 0.0 (0-0.3) K/mm3 Baso # (Auto) 0.0 (0.0-0.1) K/mm3 Abs Immat Gran (auto) 0.05 H (0.00-0.031) K/mm3 Absolute Neuts (auto) 11.4 H (1.3-6.7) K/mm3 Absolute Nucleated RBC 0.000 (0.0-0.012) K/mm3 Nucleated RBC % 0.0 (0.0-0.2) % PT 13.5 (11.1-14.7) Seconds INR 1.0 APTT 27.4 (22.3-36.8) Seconds Sodium 132 L (137-145) mmol/L Potassium 3.3 L (3.4-5.0) mmol/L Chloride 99 (98-107) mmol/L Carbon Dioxide 24 (22-30) mmol/L Anion Gap 9 (4-12) mmol/L BUN 12 D (9-20) mg/dL Creatinine 1.05 (0.7-1.3) mg/dL Estim Creat Clear Calc 48 ml/min Estimated GFR > 60 (59 - ) Glucose 72 (65-110) mg/dL POC Capillary Glucose (65-105) mg/dl Lactic Acid (0.7-2.0) mmol/L Calcium 9.6 (8.4-10.2) mg/dL Total Bilirubin 0.3 (0.2-1.3) mg/dL AST 29 (17-59) U/L ALT 14 (6-50) U/L Alkaline Phosphatase 79 (38-126) U/L Total Creatine Kinase 68 (55-170) U/L C-Reactive Protein < 0.5 (<1.0) mg/dL Total Protein 7.6 (6.3-8.2) g/dL Albumin 4.3 (3.5-5.1) g/dL Urine Color Yellow (Yellow) Urine Appearance Clear (Clear) Urine pH 7.0 (5.0-9.0) Ur Specific [place] 1.007 (1.001-1.035) Urine Protein Negative (Negative) mg/dL Urine Glucose (UA) Negative (Negative) mg/dL Urine Ketones Negative (Negative) mg/dL Ur Blood (Man) Negative (Negative) Urine Nitrate Negative (Negative) Urine Bilirubin Negative (Negative) Urine Urobilinogen 0.2 (<2.0) mg/dL Leukocyte Esterase Rfl Negative (Negative) BRO/UL 03/22/25 03/22/25 03/22/25 Range/Units 14:39 14:42 15:01 WBC (4.5-10.0) K/mm3 RBC (4.6-6.20) M/mm3 Hgb (14.0-18.0) g/dL Hct (42.0-52.0) % MCV (80-100) fl MCH (26-34) pg MCHC (32-36) g/dl RDW (11.5-14.5) % Plt Count (150-375) k/mm3 MPV (7.4-10.4) fl Immature Gran % (Auto) (0-0.5) % Neut % (Auto) (45.5-73.1) % Lymph % (Auto) (18.3-44.2) % [place] % (Auto) (2.6-8.5) % Eos % (Auto) (0-4.4) % Baso % (Auto) (0.2-1.2) % Lymph # (Auto) (0.9-3.2) K/mm3 [place] # (Auto) (0.1-0.6) K/mm3 Eos # (Auto) (0-0.3) K/mm3 Baso # (Auto) (0.0-0.1) K/mm3 Abs Immat Gran (auto) (0.00-0.031) K/mm3 Absolute Neuts (auto) (1.3-6.7) K/mm3 Absolute Nucleated RBC (0.0-0.012) K/mm3 Nucleated RBC % (0.0-0.2) % PT (11.1-14.7) Seconds INR APTT (22.3-36.8) Seconds Sodium (137-145) mmol/L Potassium (3.4-5.0) mmol/L Chloride (98-107) mmol/L Carbon Dioxide (22-30) mmol/L Anion Gap (4-12) mmol/L BUN (9-20) mg/dL Creatinine (0.7-1.3) mg/dL Estim Creat Clear Calc ml/min Estimated GFR (59 - ) Glucose (65-110) mg/dL POC Capillary Glucose 26 L* 177 H (65-105) mg/dl Lactic Acid 3.0 H (0.7-2.0) mmol/L Calcium (8.4-10.2) mg/dL Total Bilirubin (0.2-1.3) mg/dL AST (17-59) U/L ALT (6-50) U/L Alkaline Phosphatase (38-126) U/L Total Creatine Kinase (55-170) U/L C-Reactive Protein (<1.0) mg/dL Total Protein (6.3-8.2) g/dL Albumin (3.5-5.1) g/dL Urine Color (Yellow) Urine Appearance (Clear) Urine pH (5.0-9.0) Ur Specific [place] (1.001-1.035) Urine Protein (Negative) mg/dL Urine Glucose (UA) (Negative) mg/dL Urine Ketones (Negative) mg/dL Ur Blood (Man) (Negative) Urine Nitrate (Negative) Urine Bilirubin (Negative) Urine Urobilinogen (<2.0) mg/dL Leukocyte Esterase Rfl (Negative) BRO/UL 03/22/25 03/22/25 Range/Units 16:06 17:11 WBC (4.5-10.0) K/mm3 RBC (4.6-6.20) M/mm3 Hgb (14.0-18.0) g/dL Hct (42.0-52.0) % MCV (80-100) fl MCH (26-34) pg MCHC (32-36) g/dl RDW (11.5-14.5) % Plt Count (150-375) k/mm3 MPV (7.4-10.4) fl Immature Gran % (Auto) (0-0.5) % Neut % (Auto) (45.5-73.1) % Lymph % (Auto) (18.3-44.2) % [place] % (Auto) (2.6-8.5) % Eos % (Auto) (0-4.4) % Baso % (Auto) (0.2-1.2) % Lymph # (Auto) (0.9-3.2) K/mm3 [place] # (Auto) (0.1-0.6) K/mm3 Eos # (Auto) (0-0.3) K/mm3 Baso # (Auto) (0.0-0.1) K/mm3 Abs Immat Gran (auto) (0.00-0.031) K/mm3 Absolute Neuts (auto) (1.3-6.7) K/mm3 Absolute Nucleated RBC (0.0-0.012) K/mm3 Nucleated RBC % (0.0-0.2) % PT (11.1-14.7) Seconds INR APTT (22.3-36.8) Seconds Sodium (137-145) mmol/L Potassium (3.4-5.0) mmol/L Chloride (98-107) mmol/L Carbon Dioxide (22-30) mmol/L Anion Gap (4-12) mmol/L BUN (9-20) mg/dL Creatinine (0.7-1.3) mg/dL Estim Creat Clear Calc ml/min Estimated GFR (59 - ) Glucose (65-110) mg/dL POC Capillary Glucose 102 (65-105) mg/dl Lactic Acid 1.9 (0.7-2.0) mmol/L Calcium (8.4-10.2) mg/dL Total Bilirubin (0.2-1.3) mg/dL AST (17-59) U/L ALT (6-50) U/L Alkaline Phosphatase (38-126) U/L Total Creatine Kinase (55-170) U/L C-Reactive Protein (<1.0) mg/dL Total Protein (6.3-8.2) g/dL Albumin (3.5-5.1) g/dL Urine Color (Yellow) Urine Appearance (Clear) Urine pH (5.0-9.0) Ur Specific [place] (1.001-1.035) Urine Protein (Negative) mg/dL Urine Glucose (UA) (Negative) mg/dL Urine Ketones (Negative) mg/dL Ur Blood (Man) (Negative) Urine Nitrate (Negative) Urine Bilirubin (Negative) Urine Urobilinogen (<2.0) mg/dL Leukocyte Esterase Rfl (Negative) BRO/UL ABG Data ABG results: 03/22/25 14:18 Puncture Site Left brachial ABG pH 7.354 ABG pCO2 40.4 ABG pO2 86.4 ABG PO2/FiO2 Ratio 4.11 ABG HCO3 22.0 ABG O2 Saturation 96.2 ABG O2 Content 18.6 ABG Base Excess -3.3 A-a Gradient 15.0 Oxyhemoglobin 92.1 Total Hemoglobin 14.3 O2 Delivery Device Room air O2 Liters/Min 0.0 FiO2 21 Imaging Data Radiologist's impression: Impressions Chest X-Ray 03/22/25 14:30 Impression: 1: No acute cardiopulmonary disease. Head CT 03/22/25 16:59 Impression: Sequelae of prior left lacunar infarct, an interval change from [address] examination of the head without acute intracranial hemorrhage or suspicious mass effect. Redemonstration of swain matter heterotopia. Cervical Spine CT 03/22/25 17:10 Impression: Severe degenerative disease, as detailed above, without acute fracture. ECG Data EKG #1: Attestation: I personally reviewed and interpreted this ECG as follows: ECG completion date: 03/22/25 Interpretation: NORMAL SINUS RHYTHM AT 82 BEATS PER MINUTE, NO PREVIOUS EKG AVAILABLE FOR COMPARISON, NORMAL EKG Discharge Plan Discharge Clinical Impression: Hypoglycemia, Hypothermia, Acute alteration in mental status Patient Disposition: Still a Patient Condition: Stable Patient Language: Yi Prescriptions: No Action ondansetron 4 mg tablet,disintegrating 4 mg PO Q8H PRN (Reason: nausea and vomiting) Qty: 12 0RF (DME) Dexcom G6 Sensor Device MISCELLANEOUS (DME) Dexcom G6 Transmitter Device MISCELLANEOUS dicyclomine 20 mg tablet 20 mg PO TID PRN (Reason: Abdominal cramping) Qty: 10 0RF atorvastatin 40 mg tablet 40 mg PO DAILY donepezil 10 mg tablet 10 mg PO DAILY Follow-up/Referrals: Olena,Joshua [Other]
[2025-03-22 14:04] LABS: Hematocrit 42.6 % (42.0-52.0); Hemoglobin 13.5 g/dL (14.0-18.0); Immature Granulocyte Percent A 0.4 % (0-0.5); Lymphocytes Absolute Auto 0.83 K/mm3 (0.9-3.2); Mean Corpuscular HGB Conc 31.7 g/dl (32-36); Mean Corpuscular Hemoglobin 28.7 pg (26-34); Mean Corpuscular Volume 90.4 fl (80-100); Nucleated Red Blood Cells Absolute Auto 0.000 K/mm3 (0.0-0.012); Nucleated Red Blood Cells Perc 0.0 % (0.0-0.2); Platelet Count Result 297 k/mm3 (150-375); Red Blood Count 4.71 M/mm3 (4.6-6.20); White Blood Count 13.2 K/mm3 (4.5-10.0)
[2025-03-22 14:15] LABS: INR 1.0; Prothrombin Time 13.5 Seconds (11.1-14.7)
[2025-03-22 14:16] LABS: Partial Thromboplastin Time 27.4 Seconds (22.3-36.8)
[2025-03-22 14:23] LABS: Alveolar/Arterial O2 Gradient 15.0 mmHg; Fractional Inspired Oxygen 21 %; HCO3 ABG 22.0 mEq/l (22.0-26.0); Oxygen Content ABG 18.6 %vol (16.0-22.0); Oxygen Saturation ABG 96.2 % (95.0-100.0); PCO2 ABG 40.4 mmHg (35.0-45.0); PO2 ABG 86.4 mmHg (80.0-100.0); PO2 FiO2 Ratio Arterial Blood 4.11 %
[2025-03-22 14:24] LABS: Liters per Minute 0.0 LPM; Site Drawn LEFT BRACHIAL
[2025-03-22 14:34] LABS: Alanine Aminotransferase 14 U/L (6-50); Albumin Level 4.3 g/dL (3.5-5.1); Alkaline Phosphatase 79 U/L (38-126); Anion Gap 9 mmol/L (4-12); Aspartate Amino Transferase 29 U/L (17-59); Bilirubin,Total 0.3 mg/dL (0.2-1.3); Blood Urea Nitrogen 12 mg/dL (9-20); Calcium 9.6 mg/dL (8.4-10.2); Carbon Dioxide 24 mmol/L (22-30); Chloride 99 mmol/L (98-107); Estimated CRCL calculation 48 ml/min; Estimated Glomerular Filt Rate > 60; Glucose 72 mg/dL (65-110); Potassium 3.3 mmol/L (3.4-5.0); Sodium 132 mmol/L (137-145); Total Protein 7.6 g/dL (6.3-8.2)
[2025-03-22] MEDS: DEXTROSE 50% 25 GM/50 ML SYRINGE IV PUSH (14:44)
[2025-03-22 14:50] LABS: CRP < 0.5 mg/dL (<1.0); Creatine Kinase 68 U/L (55-170)
--- OUTSIDE RECORDS SUMMARY | 2025-03-22 15:12 | XMS_ITS | Clinical Summary ---
Author Organization [facility] Address [facility] [place] [address] Care Team Providers Care Youth Liaison Officer Name Role Phone Joe Forte MD Primary Care Provider Unav ailable Allergies Active Allergy Reactions Criticality Noted Date Comments Meperidine Unknown 09/20/2018 Medications aspirin 81 MG chewable tablet Chew 81 mg by mouth daily. Active multi vitamin/mineral s tablet Take 1 tablet by mouth daily. Active Continuous Blood Gluc Transmit (DEXCOM G6 TRANSMITTER) [facility] 11/14/2020 Active atorvastatin 40 MG tablet Take [...] A M CDT Height 170.2 cm (5' 7) 03/22/2021 6:31 AM CDT Body Mass Index 20.75 03/22/2021 6:31 AM CDT Plan of Treatment Health Maintenance Due Date Last Done Comments Colorectal Cancer Screening Colonoscopy (10 Years) 1952 Hepatitis C 1970 DTaP, Tdap and Td Vaccines ( 1 - Tdap) 1971 Zoster Vaccines (1 of 2) 2002 Pneumococcal Vaccine: 50+ Years (2 of 2 - PCV) 06/16/2017 06/16/2016 Annual Medicare Wellness Visit 2017 COVID-19 Vaccine (3 - 2023-2 5 season) 2024 11/17/2020, 10/27/2020 RSV Immunization or 60+ Years (1 - 1-dose 75+ series) 2027 Meningococcal B Vaccine Aged Out No l [place] eligible based on patient's age to complete this topic Meningococcal Vaccine Aged Out No [place] eligible based on patient's age to complete this topic RSV Immunizations Under 20 Months Aged Out No longer eligible b ased on patient's age to complete this [place] [id number] Advance Directives Documents on File Type Date Recorded Patient Coat Check Attendant Expl anation Advance Directives and Living Will 03/25/2021 8:02 AM 12-14-2015 signed POA for HC * Full Code (Latest Code Status on File) Date Activated Date Inactivated Comments 12/10/2020 5:13 PM 12/11/2020 1:45 PM Care Teams Youth Liaison Officer Relationship Specialty Start Date End Date Joe Forte MD PCP - General FAMILY PRACTICE 12/10/20
--- OUTSIDE RECORDS SUMMARY | 2025-03-22 15:12 | XMS_ITS | Clinical Summary ---
Author Organization [facility] [address] Address [address] [place] [address] Care Team Providers Care Electron Beam Photo Mask Technician Name Role Phone Myron Enamorado MD Unavailable [phone] Joshua Hyatt MD Primary Care Provi masoud Allergies Active Allergy Reactions Criticality Noted Date Comments Meperidine Dizziness Low Medications nysorqiq-kof-US-ly copen-lutein (SENTRY SENIOR) 0.4-300-250 mg-mcg-mcg tablet 0 [...] daily 100 tablet 1 02/25/20 24 Active blood-glucose meter,continuous misc Dexcom G6 research laboratory specialist use daily to monitor blood sugar 1 each 09/13/19 25 Active Dexcom G6 Sensor deviceIndications: Type 1 diabetes mellitus with diabetic polyneuropathy (HCC) Apply and replace one sensor per week 4 each 5 10/05/19 25 Active donepeziL (ARICEPT) 10 mg tabletIndications: Mild Alzheimer's dementia of other onset, without behavioral disturbance, psychotic disturbance, mood disturbance, or anxiety (HCC) Take 1 tablet (10 mg total) by mouth nightly 90 tablet 1 02/28/20 25 025 Active donepeziL (ARICEPT) 10 mg tabletIndications: Mild Alzheimer's dementia of other onset, without behavioral disturbance, psychotic disturbance, mood disturbance, or anxiety (HCC) Take 1 tablet (10 mg total) by mouth nightly 100 tablet 3 03/01/20 24 025 Discontin ued(Reord er) Active Problems Problem Noted Date Diagnosed Date Hypotension 11/17/2024 Assessment & Plan (12/05/2024 4:15 PM CDT): Weakness 11/17/2024 Near syncope 11/17/2024 Insulin pump status 10/26/2024 Assessment & Plan (10/26/2024 11:44 AM CADDYMASTER): No pump setting changes today. Discussed bolusing more with HS snack. Tobacco abuse 10/05/2024 Microalbuminuria due to type 1 diabetes mellitus 03/07/2024 Assessment & Plan (10/26/2024 11:44 AM CADDYMASTER): Chronic problem. Mild microalbuminuria (52). Will recheck today as he's getting labs done for PCP already. Currently taking lisinopril 2.5mg daily Assessment & Plan (07/06/2024 10:20 AM CADDYMASTER): Continue lisinopril Type 1 diabetes mellitus with hyperglycemia 12/30 Assessment & Plan (10/26/2024 11:45 AM CADDYMASTER): Chronic problem. A1c near goal; improved slightly from 7.7% 07/04/24 to now 7.6%. reviewed Dexcom download with Mr Griffin. Current medications: Novolog via Medtronic 670G insulin [...] simple sugars. Check the blood sugar: Dexcom G6. Check the feet daily for skin breakdown and infection. Assessment & Plan (07/07/2024 11:06 AM CADDYMASTER): Stable. Follows with endocrinology. Assessment & Plan (07/06/2024 10:20 AM CADDYMASTER): Chronic, uncontrolled Hemoglobin A1c 7.7%, not at [...] diabetes mellitus 0 11/27/2023 Assessment & Plan (10/26/2024 11:43 AM CADDYMASTER): Chronic problem. Controlled on current Atorvastatin 40mg. Last lipid panel: 03/01/24 LDL=58, TG=55. Assessment & Plan (07/06/2024 10:20 AM CADDYMASTER): Continue statin therapy Assessment & Plan (04/13/2024 [...] atorvastatin. No signs of intolerance Senile purpura 11/27/2023 Assessment & Plan (11/27/2023 4:08 PM [...] cessation Assessment & Plan (08/17/2023 6:15 PM CADDYMASTER): Chronic. Needs improvement. 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 Referral provided. Encouraged to continue use of insulin pump, C GM. He will continue working with his current retail shift manager until he can see the [facility] retail shift manager. Foot and eye care discussed History of [...] 3-10 minutes spent on counseling. [Modifier 25; 02133 3-10 min; 30607 > 10 min] Mild dementia without behavi oral disturbance, psychotic disturbance, mood disturbance, or anxiety, unspecified dementia type 05/30/2021 Assessment & Plan (03/01/2024 1:13 PM CDT): Chronic. Memory stable. Continue donepezil Assessment & Plan (11/27/2023 3:44 PM CDT): Chronic. Memory has been stable. Continue donepezil. We will need to monitor Assessment & Plan (08/17/2023 6:13 PM CADDYMASTER): Mild per record. On donepezil. May have some degree of memory worsening per son. Did discuss option to consider adding a 2nd medication like memantine but deferred for now Absence of toe of right foot 05/30/2021 Assessment & Plan (03/01/2024 1:13 PM [...] Monitor Assessment & Plan (08/17/2023 6:14 PM CADDYMASTER): Prior amputation for combination of diabetic ulcer/ischemia. [...] discussed Assessment & Plan (08/17/2023 6:13 PM CADDYMASTER): Chronic. Denies chest pain. Continue risk factor modification with ASA, high-intensity statin, blood pressure control. LDL goal less than 70. Currently does not follow with Cardiology History of heart artery stent 09/20/2018 Assessment & Plan (08/17/2023 6:13 PM CADDYMASTER): Last stent was a few years ago. [...] changes. Assessment & Plan (08/17/2023 6:14 PM CADDYMASTER): Chronic. 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 He will [...] Encounters Date Type Department Care Team Description 03/07/2025 Orders Only [facility] Diabetes and Endocrinology [address] [place] [address] [phone] ProviderLaurie MD 02/09/2025 Results Follow-Up [facility] [address] [address] Corey Restrepo MD Glucose, fasting, Lipid panel, C-peptide 02/07/2025 9:45 AM CDT Lab [facility] Outpatient Lab at [address] [phone] 02/07/2025 9:38 AM CDT - 02/07/2025 11:59 PM CDT Hospital Encounter [address] [address] Type 1 diabetes mellitus with hyperglycemia (HCC); Hyperlipidemia due to type 1 diabetes mellitus (HCC) Discharge Disposition: Discharge to home or self care 02/07/2025 Telephone [facility] [address] [address] Corey Restrepo MD 02/06/2025 2:00 PM CDT Office Visit [facility] Diabetes and Endocrinology [address] [place] [address] [phone] Corey Restrepo MD Type 1 diabetes mellitus with hyperglycemia (HCC) (Primary Dx); Hyperlipidemia due to type 1 diabetes mellitus (HCC); Microalbuminuria due to type 1 diabetes mellitus (HCC); Insulin pump status 02/06/2025 Telephone [facility] [address] [address] Corey Restrepo MD 02/03/2025 Telephone [facility] Primary Care at [address] [place] [address] Joshua Hyatt MD 02/02/2025 Telephone [facility] [address], [place] [address] Corey Restrepo MD 02/02/2025 Telephone [facility] Primary Care at [address] [place] [address] Joshua Hyatt MD Referral Request from Last 3 Months Immunizations Immunization Administration Dates Next Due Influenza, Quadrivalent, Dian l Culture-based MDCK, Preservative Free, Antibiotic Free, Intramuscular 07/01/2022 Influenza, Quadrivalent, Hig h Dose, Preservative Free, Intrr 06/08/2023 Influenza, Quadrivalent, Spl it, Preservative Free, Intramuscular 06/16/2016 Influenza, Trivalent, IM (MDV) 06/29/2022,2018,05/10/2018 Influenza, Unspecified 05/09/2024,06/08/2023 Trusper Sars-Cov-2 Bivalent V accination (12+ YRS) 05/09/2024 Pneumococcal Conjugate Pcv20 03/01/2024 Pneumococcal Polysaccharide PPV23 06/16/2016 ZOSTER Recombinant 01/03/2023,07/01/2022 Surgical History Surgery Date Site/Laterality Comments CARDIAC CATHETERIZATION 08/31/2015 - 08/30/2016 left heart cath with PCI FEMORAL ARTERY STENT 11/29/2020 - 12/28/2020 Bilateral Aortogram c B LE RO R SFA 4.5x15 mm Resolute [place] stent placement R AK PA 4.5x22 Resolute [place] stent placement TOE AMPUTATION 02/28/2021 - 03/30/2021 Right 5th toe for DM ulcer Medical History Medical History Date Comments Hyperlipidemia Hyperlipidemia Type 1 diabetes mellitus (HCC) D iabetes Hx Other Medical Orthostatic hyp otension Diabetic neuropathy (HCC) Neurop athy Hx Other Medical Hx of syncope Pressure ulcer, heel in 2020. re covered Amputation of fifth toe of right foot Peripheral vascular disease Family History Medical History Relation Name Comments [...] Date Smoking Tobacco: Every Day Cigarettes 1 46.6 Started: 1978 Smokeless Tobacco: Never Tobacco Cessation:Ready [...] on file Legal Sex Male 8:13 AM CADDYMASTER Gender Identity Not on file Sexual Orientation Not on file Obstetrics History Last Filed Vital Signs Vital Sign Reading Time Taken Comments Blood Pressure 122/70 02/06/2025 1:47 PM CDT Pulse 84 02/06/2025 1:47 PM CDT Temperature 36.2 C (97.2 F) 11/17/2024 4:01 PM CDT Respiratory Rate 16 02/06/2025 1:47 PM CDT Oxygen Saturation 97% 12/05/2024 3:56 PM CDT Inhaled Oxygen Concentration - - Weight 60.3 kg (133 lb) 02/06/2025 1:47 PM CDT Height 170.2 cm (5' 7) 02/06/2025 1:47 PM CDT Body Mass Index 20.83 02/06/2025 1:47 PM CDT Plan of Treatment Health Maintenance Due Date Last Done Comments DTaP/Tdap/Td Vaccine (1 - Tdap) 1961 Hepatitis B Screening 1970 Lung Cancer Screening 2002 Well Visit 65+ 05/27/2023 05/27/2022, 05/30/2021 Covid-19 Vaccine (2023-2 5 season) 2024 05/09/2024, 06/08/2023, 05/27/2021, Additional history exists Fall Risk Assessment 08/17/2024 08/17/2023 TSH Level 03/01/2025 03/01/2024, 05/01, 05/11/2023 Influenza Vaccine (#1) 2025 , 06/08/2023, 06/08/2023, Additional history exists Foot Exam 07/04/2025 07/04/2024, 08/17/2023 Hemoglobin A1C 08/08/2025 02/06/2025, 10/02, 07/04/2024, Additional history exists Depression Screening 10/05/2025 10/05/2024, 03/01/2024, 08/17/2023 Albumin Creatinine Ratio, Urine 10/26/2025 10/26/2024, 03/01/2024, 05/11/2023, Additional history exists eGFR 11/10/2025 11/10/2024, 10/29, 03/01/2024, Additional history exists Lipid Panel 02/07/2026 02/07/2025, 0710/2023, 05/11/2023, Additional history exists Dilated Eye Exam 02/27/2027 02/27/2025, , 01/05/2023 Colon Cancer Screening-Colonoscopy 10/28/20332023 Zoster Vaccine Completed 01/03/2023, 07/01/2022 Hepatitis C Screening Completed 03/01/2024 Pneumococcal vaccine 65+ Completed 03/01/2024, 05/31 Abdominal Aortic Aneurysm (A AA) Screen Completed 10/27/2024 Procedures Procedure Name Priority Date/Time Associated Diagnosis Comments HM DIABETES EYE EXAM Routine 02/27/2025 7:32 AM CDT C-PEPTIDE Routine 02/07/2025 9:38 AM CDT Type 1 diabetes mellitus with hyperglycemia (HCC) LIPID PANEL Routine 02/07/2025 9:38 AM CDT Type 1 diabetes mellitus with hyperglycemia (HCC) Hyperlipidemia due to type 1 diabetes mellitus (HCC) GLUCOSE, FASTING Routine 02/07/2025 9:38 AM CDT Type 1 diabetes mellitus with hyperglycemia (HCC) DIABETES MELLITUS TYPE 1 EVALUATION Routine 02/07/2025 9:38 AM CDT Type 1 diabetes mellitus with hyperglycemia (HCC) POCT HEMOGLOBIN A1C Routine 02/06/2025 1 :51 PM CDT Type 1 diabetes mellitus with hyperglycemia (HCC) POCT GLUCOSE Routine 02/06/2025 1:50 PM CDT Type 1 diabetes mellitus with hyperglycemia (HCC) EGFR Routine 11/10/2024 ABDOMINAL AORTIC ANEURYSM SCREENING Routine 10/27/2024 11:48 AM CADDYMASTER ALBUMIN CREATININE RATIO, URINE Routine 10/26/2024 11:47 AM CADDYMASTER Type 1 diabetes mellitus with hyperglycemia (HCC) HEPATITIS C ANTIBODY Routine 03/01/2024 10:38 AM CDT Encounter for hepatitis C screening test for low risk patient THYROID FUNCTION CASCADE Routine 03/01/2024 10:38 AM CDT Type 1 diabetes mellitus with diabetic polyneuropathy (HCC) Diabetes mellitus type 1 with peripheral artery disease (HCC) Atherosclerosis of [place] coronary artery of [place] heart without angina pectoris COLONOSCOPY Routine 10/29/2023 from Last 3 Months or Most Recently Relevant to Health Maintenance Results * DIABETES EYE EXAM (02/27/2025 7:32 AM CDT) Historical Provider MD HEALTH MAINTENANCE Final Result * (ABNORMAL) Diabetes Mellitus Type 1 Evaluation (02/07/2025 9:38 AM CDT) Insulin ab 0.02 0.00 - 0.02 nmol/L [facility] Comment: ADDITIONAL INFORMATION This test was developed and its performance characteristics determined by [facility] in a manner consistent with CLIA requirements. This test has not been cleared or approved by the U.S. Food and Drug Administration. GAD65 ab ser 2.09(H) <=0.02 nmol/L [facility] Comment: ADDITIONAL INFORMATION This test was developed and its performance characteristics determined by [facility] in a manner consistent with CLIA requirements. This test has not been cleared or approved by the U.S. Food and Drug Administration. IA-2 Ab 0.00 <=0.02 nmol/L ANN Comment: ADDITIONAL INFORMATION This test was developed and its performance characteristics determined by [facility] in a manner consistent with CLIA requirements. This test has not been cleared or approved by the U.S. Food and Drug Administration. Diabetes, type 1, interpretation See Footnote ANN Comment: This profile is consistent with a diagnosis of type 1 diabetes mellitus. * When found in isolation, the sensitivities of these autoantibodies for type 1 diabetes are 74% (GAD65 antibody), 75% (IA-2 antibody), 69% (insulin antibody) and 69% (ZnT8). When all 4 antibodies are tested for, and at least 1 autoantibody is detected, the combined sensitivity for type 1 diabetes is 98%, with a specificity of 98-100%. * These autoantibodies may also be detectable before the clinical onset of diabetes. The cumulative risk of a seropositive patient developing diabetes is 17% for 1 antibody, 39% for 2 antibodies, 70% for 3 antibodies, and 80% for 4 antibodies. * References: * Nusrat GALLO. Clinical applications of diabetes antibody testing. The Journal of clinical endocrinology and metabolism 2010;95:25-33. * Marlin Viera. Nigel P, Tyrone M, Ronny R, Johann M, Johanna L, Farheen J, Robson M, Castillo Cueto, Toby AG, Shaun Anders. 3 Screen islet cell autoantibody LEONARDO: A sensitive and specific LEONARDO for the combined measurement of autoantibodies of JORGE, to IA-2 and to ZnT8. Clin Ruthie Acta. 2016;462:60-64. * Nusrat GALLO, Casitllo Cueto, Michael AJ, Janna S, Nahun GF, Cheyenne EA. Prediction of IDDM in the general population: strategies based on combinations of autoantibody markers. Diabetes. 1997;46:1701-10. * ZNT8 Antibodies <15.0 <15.0 units/mL [facility] Comment: ADDITIONAL INFORMATION This test has been modified from the speeder worker's instructions. Its performance characteristics were determined by [facility] in a manner consistent with CLIA requirements. This test has not been cleared or approved by the U.S. Food and Drug Administration. Test Performed by: [place] [address] Drapery Installer: Sylvie Rowland Ph.D.; CLIA# [id number] Blood 02/07/2025 9:38 AM CDT 02/07/2025 2:52 PM CDT Corey Sanchez MD LAB BLOOD ORDERABLE S Final Result [facility] [id number] Department [place] [address] [facility] * (ABNORMAL) C-peptide (02/07/2025 9:38 AM CDT) C-peptide <0.02(L) 1.10 - 4.40 ng/mL Comment:Testing performed by : [facility], [address] [facility], [place]., [address] Blood 02/07/2025 9:38 AM CDT 02/07/2025 4:17 PM CDT Corey Sanchez MD LAB BLOOD ORDERABLE S Final Result Performing Organization Address City/[facility] Co de Phone Number ANN [address] [address] [facility] [employer] [place] [address] * Glucose, fasting (02/07/2025 9:38 AM CDT) Glucose, fasting 73 70 - 99 mg/dL Blood 02/07/2025 9:38 AM CDT 02/07/2025 2:52 PM CDT Corey Sacnhez MD LAB BLOOD ORDERABLE S Final Result Performing Organization Address [facility] de Phone Number [place] [address] [employer] [place] [address] * Lipid panel (02/07/2025 9:38 AM CDT) Cholesterol 159 30 - 199 mg/dL Comment: Interpretive Data [...] Data was last revised on 2018. Triglycerides 66 <=149 mg/dL [facility] Comment: Interpretive Data Ages [...] Data was last revised on 2018. HDL 58 >=40 mg/dL [facility] Comment: Interpretive Data [...] was last revised on 2018. LDL, calculated 88 <=129 mg/dL [facility] Comment: Interpretive Data Ages < or = 19 years Acceptable: <110 mg/dL Borderline high: 110-129 mg/dL High: >or= 130 mg/dL Ages > or = 20 years Optimal: <100 mg/dL Near optimal: 100-129 mg/dL Borderline high: 130-159 mg/dL High: >160 mg/dL Calculated using the Paul LDL-C estimating equation. This equation was implemented on 2024. Prior to this date LDL-C was estimated using the Friedewald equation. Literature References: 1. Expert Panel on Integrated Guidelines for Cardiovascular Health and Risk Reduction in Children and Adolescents. Pediatrics 2011;128:S213 2. NCEP Expert Panel. Circulation 2004;110:227 3. Paul Viera et al. SAGAR Cardiol. 2019December 29;5(5):540-548. doi: 10.1001/jamacardio.2020.0013 Current Interpretive Data was last revised on 2024. Non-HDL Cholesterol 101 mg/dL [facility] Comment: Interpretive Data Ages [...] was last revised on 2018. Chol/HDL ratio 3 [facility] Blood 02/07/2025 9:38 AM CDT 02/07/2025 2:[address] [facility] Corey Sanchez MD LAB BLOOD ORDERABLE S Final Result ANN [address] Department [place] [address] * (ABNORMAL) POCT hemoglobin A1c (02/06/2025 1:51 PM CDT) Pathologist [facility] Hemoglobin A1C, POC 7.4(A) 4.0 - 5.6 % Blood 02/06/2025 1:51 PM CDT Corey Sanchez MD POINT OF CARE TEST ORDERABLES Final Result * POCT glucose (02/06/2025 1:50 PM CDT) Pathologist [facility] Glucose Blood, POC 250 Normal Fasting 70 - 100, Random <200 mg/dL Blood 02/06/2025 1:[address] [facility] Corey Sanchez MD POINT OF CARE TEST ORDERABLES Final Result * EGFR (11/10/2024) SCRIBED eGFR in 54 EXTERNAL LAB SCRIBED eGFR in NonAfrican Burkinan 54 EXTERNAL LAB 11/10/2024 Historical Provider HEALTH MAINTENANCE Final Result EXTERNAL LAB * HM ABDOMINAL AORTIC ANEURYSM SCREENING (10/27/2024 11:48 AM CADDYMASTER) Historical Provider HEALTH MAINTENANCE Final Result * (ABNORMAL) Albumin Creatinine Ratio, Urine (10/26/2024 11:47 AM CADDYMASTER) [facility] Albumin Ur 20.9 mg/L Comment: Interpretive Data No reference range established. Current interpretive data was last revised 2019. Creatinine Ur 47.8 mg/dL [facility] Comment: Interpretive Data No reference range established. Current interpretive data was last revised 2019. Albumin Creatinine Ratio, Ur 44(H) 1 - 29 mg/g [facility] Urine 10/26/2024 11:4 7 AM CADDYMASTER 10/26/2024 3:12 PM CADDYMASTER us Bekah Balderas NP LAB URINE ORDERABLES Lalitha l Result Performing Organization Address City/[facility] Co de Phone Number [facility] [address] [address] Department [place] [employer] [place] [address] * Thyroid Function [place] (03/01/2024 10:38 AM CDT) [facility] TSH 1.34 0.30 - 4.20 mcIUnit/mL Blood 03/01/2024 10:3 8 AM CDT 03/01/2024 2:12 PM CDT Christiana Corona MD LAB BLOOD ORDERABLES F inal Result Performing Organization Address City/[facility] Co de Phone Number [facility] [address] [address] Department [place] [employer] [place] [address] * Hepatitis C antibody Blood (03/01/2024 10:38 AM CDT) [facility] Hep C Ab Nonreactive Nonreactive Comment: [...] MICROBIOLOGY - GEN ERAL ORDERABLES Final Result [facility] [id number] [address] [place] [address] * COLONOSCOPY (10/29/2023) Scribed HM Colonoscopy Unknown Historical Provider HEALTH MAINTENANCE Final Result from Last 3 Months or Most Recently Relevant to Health Maintenance Insurance [facility] Care Teams Electron Beam Photo Mask Technician Relationship Specialty Start Date End Date Joshua Hyatt MD [address] [place] [address] PCP - General Family Practice 10/03/24 [place] [id number] [place] [address] Referring Physician Endocrinology Diabetes & Metabolism 08/17/23
--- OUTSIDE RECORDS SUMMARY | 2025-03-22 15:12 | XMS_ITS | Referral Summary ---
Author Organization [facility] [address] Address [address] [place] [phone] Care Team Providers Care Blood Bank Laboratory Technologist Name Role Phone Myron Enamorado MD Unavailable [phone] Joshua Hyatt MD Primary Care Provi [facility] Encounters Date Type Department Care Team Description 03/07/2025 Orders Only [facility] Diabetes and Endocrinology [address] [place] [phone] ProviderLaurie MD 02/09/2025 Results Follow-Up [facility] Specialists of [address] [phone] Corey Restrepo MD Glucose, fasting, Lipid panel, C-peptide 02/07/2025 9:38 AM CDT - 02/07/2025 11:59 PM CDT Hospital Encounter [address] [address] Type 1 diabetes mellitus with hyperglycemia (HCC); Hyperlipidemia due to type 1 diabetes mellitus (HCC) Discharge Disposition: Discharge to home or self care 02/07/2025 9:45 AM CDT Lab [facility] Outpatient Lab at [address] [phone] 02/07/2025 Telephone [facility] of [address] [phone] Corey Restrepo MD 02/06/2025 Telephone [facility] of [address] [phone] Corey Restrepo MD 02/06/2025 2:00 PM CDT Office Visit [facility] Diabetes and Endocrinology [address] [place] [phone] Corey Restrepo MD Type 1 diabetes mellitus with hyperglycemia (HCC) (Primary Dx); Hyperlipidemia due to type 1 diabetes mellitus (HCC); Microalbuminuria due to type 1 diabetes mellitus (HCC); Insulin pump status 02/03/2025 Telephone [facility] Primary Care at [address] [phone] Joshua Hyatt MD 02/02/2025 Telephone [facility] of [address] [phone] Corey Restrepo MD 02/02/2025 Telephone [facility] Primary Care at [address] [place] [phone] Joshua Hyatt MD Referral Request from Last 3 Months Allergies Active Allergy Reactions Criticality Noted Date Comments Meperidine Dizziness Low Medications qrjwqgui-vsc-QO-ly copen-lutein (SENT SENIOR) 0.4-300-250 mg-mcg-mcg tablet 0 0 07/23/20 [...] 24 Active blood-glucose meter,continuous misc Dexcom G6 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 Discussed bolusing more with HS snack. Tobacco abuse 10/05/2024 Microalbuminuria due to type 1 diabetes mellitus 03/07/2024 Assessment & Plan (10/26/2024 11:44 AM BATCH MIXER): Chronic problem. Mild microalbuminuria (52). Will recheck today as he's getting labs done for PCP already. Currently taking lisinopril 2.5mg daily Assessment & Plan (07/06/2024 10:20 AM BATCH MIXER): Continue lisinopril Type 1 diabetes mellitus with hyperglycemia 12/30 Assessment & Plan (10/26/2024 11:45 AM BATCH MIXER): Chronic problem. A1c near goal; improved slightly [...] infection. Assessment & Plan (07/07/2024 11:06 AM BATCH MIXER): Stable. Follows with endocrinology. Assessment & Plan (07/06/2024 10:20 AM BATCH MIXER): Chronic, uncontrolled Hemoglobin A1c 7.7%, not at [...] 11/27/2023 Assessment & Plan (10/26/2024 11:43 AM BATCH MIXER): Chronic problem. Controlled on current Atorvastatin 40mg. Last lipid panel: 03/01/24 LDL=58, TG=55. Assessment & Plan (07/06/2024 10:20 AM BATCH MIXER): Continue statin therapy Assessment & Plan (04/13/2024 [...] cessation Assessment & Plan (08/17/2023 6:15 PM BATCH MIXER): Chronic. Needs improvement. Wants to change him assistant to [facility] specialists. Referral provided. Encouraged to continue use of insulin pump, C GM. He will continue working with his current him assistant until he can see the [facility] him assistant. Foot and eye care discussed History of [...] 3-10 minutes spent on counseling. [Modifier 25; 58839 3-10 min; 70476 > 10 min] Mild dementia without behavi oral disturbance, psychotic disturbance, mood disturbance, or anxiety, unspecified dementia type 05/30/2021 Assessment & Plan (03/01/2024 1:13 PM CDT): Chronic. Memory stable. Continue donepezil Assessment & Plan (11/27/2023 3:44 PM CDT): Chronic. Memory has been stable. Continue donepezil. We will need to monitor Assessment & Plan (08/17/2023 6:13 PM BATCH MIXER): Mild per record. On donepezil. May have [...] Monitor Assessment & Plan (08/17/2023 6:14 PM BATCH MIXER): Prior amputation for combination of diabetic ulcer/ischemia. [...] discussed Assessment & Plan (08/17/2023 6:13 PM BATCH MIXER): Chronic. Denies chest pain. Continue risk factor modification with ASA, high-intensity statin, blood pressure control. LDL goal less than 70. Currently does not follow with Cardiology History of heart artery stent 09/20/2018 Assessment & Plan (08/17/2023 6:13 PM BATCH MIXER): Last stent was a few years ago. [...] changes. Assessment & Plan (08/17/2023 6:14 PM BATCH MIXER): Chronic. Has a significant amount of neuropathy [...] 10/05/2024 Assessment & Plan (07/07/2024 11:06 AM BATCH MIXER): [employer] license renewal form filled out. He will [...] Trivalent, IM (MDV) 06/29/2022,2018,05/10/2018 Influenza, Unspecified 05/09/2024,06/08/2023 [employer] Sars-Cov-2 Bivalent V accination (12+ YRS) 05/09/2024 [...] on file Legal Sex Male 8:13 AM BATCH MIXER Gender Identity Not on file Sexual Orientation [...] 02/06/2025 1:47 PM CDT Plan of Treatment Not on file Procedures [...] mellitus with hyperglycemia (HCC) EGFR Routine 11/10/2024 HM ABDOMINAL AORTIC ANEURYSM SCREENING Routine 10/27/2024 11:48 AM BATCH MIXER ALBUMIN CREATININE RATIO, URINE Routine 10/26/2024 11:47 AM BATCH MIXER Type 1 diabetes mellitus with hyperglycemia (HCC) HEPATITIS C ANTIBODY Routine 03/01/2024 10:38 AM CDT Encounter for hepatitis C screening test for low risk patient THYROID FUNCTION CASCADE Routine 03/01/2024 10:38 AM CDT Type 1 diabetes mellitus with diabetic polyneuropathy (HCC) Diabetes mellitus type 1 with peripheral artery disease (HCC) Atherosclerosis of [place] coronary artery of [place] heart without angina pectoris COLONOSCOPY Routine 10/29/2023 from Last 3 Months or Most Recently Relevant to Health Maintenance Results * DIABETES EYE EXAM (02/27/2025 7:32 AM CDT) us Historical Provider HEALTH MAINTENANCE Final Result * (ABNORMAL) Diabetes Mellitus Type 1 Evaluation (02/07/2025 9:38 AM CDT) Insulin ab 0.02 0.00 - 0.02 nmol/L [place] [facility] Comment: ADDITIONAL INFORMATION This test was developed and its performance characteristics determined by [facility] in a manner consistent with CLIA requirements. This test has not been cleared or approved by the U.S. Food and Drug Administration. GAD65 ab ser 2.09(H) <=0.02 nmol/L [facility] Comment: ADDITIONAL INFORMATION This test was developed and its performance characteristics determined by [facility] in a manner consistent with CLIA requirements. This test has not been cleared or approved by the U.S. Food and Drug Administration. IA-2 Ab 0.00 <=0.02 nmol/L ANN Comment: ADDITIONAL INFORMATION This test was developed and its performance characteristics determined by [facility] in a manner consistent with CLIA requirements. [...] Farheen J, Robson M, Castillo Cueto, Toby HERNANDEZ, Shaun Anders. 3 Screen islet cell autoantibody LEONARDO: A sensitive and specific LEONARDO for the combined measurement of autoantibodies of JORGE, to IA-2 and to ZnT8. Clin Ruthie Acta. 2016;462:60-64. * Nusrat GALLO, Castillo Cueto, Michael AJ, Janna S, Nahun GF, Cheyenne EA. Prediction of IDDM in the general population: strategies based on combinations of autoantibody markers. Diabetes. 1997;46:1701-10. * ZNT8 Antibodies <15.0 <15.0 units/mL ANN Comment: ADDITIONAL INFORMATION This test has been modified from the silk brusher's instructions. Its performance characteristics were determined by [facility] in a manner consistent with CLIA requirements. This test has not been cleared or approved by the U.S. Food and Drug Administration. Test Performed by: [facility] - [address] [address] House Carpenter Helper: Sylvie Rowland Ph.D.; CLIA# [id number] Blood 02/07/2025 9:38 AM CDT 02/07/2025 2:52 PM CDT us Corey Sanchez MD LAB BLOOD ORDERABLE S Final Result Performing Organization Address City/[facility] Co de Phone Number ANN DEGROOT [address] [address] [place] [address] [place] [facility] * (ABNORMAL) C-peptide (02/07/2025 9:38 AM CDT) C-peptide <0.02(L) 1.10 - 4.40 ng/mL Comment:Testing performed by : [facility], [address] [place] [address] Blood 02/07/2025 9:38 AM CDT 02/07/2025 4:17 PM CDT us Corey Sanchez MD LAB BLOOD ORDERABLE S Final Result Performing Organization Address [facility] Co de Phone Number ANN ZANE [address] [address] Department [employer] [place], [place] [id number] * Glucose, fasting (02/07/2025 9:38 AM CDT) Glucose, fasting 73 70 - 99 mg/dL Blood 02/07/2025 9:38 AM CDT 02/07/2025 2:52 PM CDT us Corey Sanchez MD LAB BLOOD ORDERABLE S Final Result Performing Organization Address City/[facility]/ZIP Co de Phone Number ANN DEGROOT [address] [address] [place] [address] * Lipid panel (02/07/2025 9:38 AM CDT) [...] 9:38 AM CDT 02/07/2025 2:52 PM CDT us Corey Sanchez MD LAB BLOOD ORDERABLE S Final Result ANN DEGROOT [address] Department [place] [address] * (ABNORMAL) POCT hemoglobin A1c (02/06/2025 1:51 PM CDT) Hemoglobin A1C, POC 7.4(A) 4.0 - 5.6 % Blood 02/06/2025 1:51 PM CDT Corey Sanchez MD POINT OF CARE TEST ORDERABLES Final Result * POCT glucose (02/06/2025 1:50 PM CDT) Pathologist [facility] Glucose Blood, POC 250 Normal Fasting 70 - 100, Random <200 mg/dL Blood 02/06/2025 1:50 PM CDT Corey Sanchez MD POINT OF CARE TEST ORDERABLES Final Result * EGFR (11/10/2024) [facility] SCRIBED eGFR in 54 EXTERNAL LAB SCRIBED eGFR in NonAfrican Singaporean 54 EXTERNAL LAB 11/10/2024 Historical Provider HEALTH MAINTENANCE Final Result EXTERNAL LAB * HM ABDOMINAL AORTIC ANEURYSM SCREENING (10/27/2024 11:48 AM BATCH MIXER) Historical Provider HEALTH MAINTENANCE Final Result * (ABNORMAL) Albumin Creatinine Ratio, Urine (10/26/2024 11:47 AM BATCH MIXER) Pathologist [facility] Albumin Ur 20.9 mg/L Comment: Interpretive Data No reference range established. Current interpretive data was last revised 2019. Creatinine Ur 47.8 mg/dL ANN Comment: Interpretive Data No reference range established. Current interpretive data was last revised 2019. Albumin Creatinine Ratio, Ur 44(H) 1 - 29 mg/g ANN DEGOROT Urine 10/26/2024 11:4 7 AM BATCH MIXER 10/26/2024 3:12 PM BATCH MIXER Bekah Balderas CATEGORY DEVELOPMENT MANAGER LAB URINE ORDERABLES Lalitha l Result ANN [address] Department [place] [address] * Thyroid Function [place] (03/01/2024 10:38 AM CDT) Pathologist [facility] TSH 1.34 0.30 - 4.20 mcIUnit/mL Blood 03/01/2024 10:3 8 AM CDT 03/01/2024 2:12 PM CDT Christiana Corona MD LAB BLOOD ORDERABLES F inal Result Performing Organization Address [facility] de Phone Number ANN DEGROOT [address] [address] Department [place] [address] * Hepatitis C antibody Blood (03/01/2024 10:38 AM CDT) Pathologist [facility] Hep C Ab Nonreactive Nonreactive Comment: Interpretive [...] ERAL ORDERABLES Final Result Performing Organization Address [facility] Co de Phone Number ANN DEGROOT [address] [address] Department [place] [address] * HM COLONOSCOPY (10/29/2023) Pathologist [facility] Scribed Colonoscopy Unknown Laurie Painting MD HEALTH MAINTENANCE Final Result from Last 3 Months or Most Recently Relevant to Health Maintenance Insurance [facility] Care Teams Blood Bank Laboratory Technologist Relationship Specialty Start Date End Date Joshua Hyatt MD [address] [place] [address] PCP - General Family Practice 10/03/24 [place] [address] [place] [address] Referring Physician Endocrinology Diabetes & Metabolism 08/17/23
--- OUTSIDE RECORDS SUMMARY | 2025-03-22 15:13 | XMS_ITS | Clinical Summary ---
Author Organization [facility] Address [address], [place] [address] Phone Care Team Providers Care Operations Developer Name Role Phone Unavailable Primary Care Provider Unavailabl e Medications ipratropium HFA (ATROVENT HFA) 17 MCG/ACT inhaler [...] Base) MCG/ACT inhaler prn q6h 0 01/11/2016 Act verna Social History Tobacco Use Types Packs/Day Years Used Date Smoking Tobacco: Never Assessed Sex and Gender Information Value Date Recorded Sex Assigned at Not on file Legal Sex Male 7:32 AM MST Gender Identity Not on file Sexual Orientation Not on file Plan of Treatment Not on file
--- OUTSIDE RECORDS SUMMARY | 2025-03-22 15:13 | XMS_ITS | Clinical Summary ---
Author Organization [facility] Address [address] [place] [address] Care Team Providers Care Online Marketing Director Name Role Phone Unavailable Primary Care Provider Unavailabl e Source Comments [facility],non-owned Affiliates and Associated Physician Practices is amultiple site organization consisting of ambulatory clinics and hospital sitesin [place], [place], [place] and [place]. This disclosure is being madepursuant to the Care Everywhere program and may not contain all information available regarding this patient. Last updated 18.[facility] Allergies No known active allergies Social History Tobacco Use Types Packs/Day Years Used Date Smoking Tobacco: Never Assessed Sex and Gender Information Value Date Recorded Sex Assigned at Not on file Legal Sex Male 6:25 AM MANAGER CASE MANAGEMENT Gender Identity Not on file Sexual Orientation Not on file Last Filed Vital Signs Vital Sign Reading Time Taken Comments Blood Pressure 105/63 11/10/2024 8:13 PM CDT Pulse 93 11/10/2024 8:13 PM CDT Temperature 36.4 C (97.5 F) 11/10/2024 8:13 PM CDT Respiratory Rate 18 11/10/2024 8:13 PM CDT Oxygen Saturation 99% 11/10/2024 8:13 PM CDT Inhaled Oxygen Concentration - - Weight 59 kg (130 lb) 11/10/2024 5:17 PM CDT Height 172.7 cm (5' 8) 11/10/2024 5:17 PM CDT Body Mass Index 19.77 11/10/2024 5:17 PM CDT Plan of Treatment Health Maintenance Due Date Last Done Comments COLOGUARD (AGES 45-75) - COLON CA SCREENING 1952 CT COLONOGRAPHY - COLON CA SCREENING 1950 FIT - COLON CA SCREENING 1952 FLEX SIG - COLON CA SCREENING 1952 LIPID TESTING 1950 MEDICARE AWV 12 MONTHS 1952 HEPATITIS C SCREENING 10/20/1970 DTAP/TDAP/TD VACCINES (1 - Tdap) 1971 PNEUMOCOCCAL VACCINE 50+ (1 of 1 - PCV) 2002 ZOSTER VACCINE (1 of 2) 2002 Respiratory Syncytial Virus (RSV) Vaccine Pt: or over 60 yrs (1 - Risk 60-74 years 1-dose series) 2012 DEPRESSION SCREENING 08/31/2024 COVID-19 VACCINE (6 - 2023- season) 2024 05/09/2024, 04/27/2024, 06/08/2023, Additional history exists INFLUENZA VACCINE (#1) 2025 , 04/27/2024, 06/08/2023, Additional history exists COLON MONITORING 10/28/2033 10/29/2023 COLONOSCOPY - COLON CA SCREENING 10/28/2033 10/29/2023 Colorectal Cancer Screening 10/28/2033 HEPATITIS B VACCINE Aged Out No longe r eligible based on patient's age to complete this topic HIB VACCINE Aged Out No longer eligi ble based on patient's age to complete this topic HPV VACCINE Aged Out No longer eligi ble based on patient's age to complete this topic MENINGOCOCCAL (Group B) VACCINE SHARED DECISION-MAKING Aged Out No longer eligible based on patient's age to complete this topic MENINGOCOCCAL GROUPS A/C/Y/W VACCINE Aged Out No longer eligible based on patient's age to complete this topic Procedures Procedure Name Priority Date/Time Associated Diagnosis Comments COLONOSCOPY 10/29/2023 from Last 3 Months or Most Recently Relevant to Health Maintenance Results * COLONOSCOPY (10/29/2023) 10/29/2023 Narrative 10/29/2023 Ordered by an unspecified provider. us Scanned Document SCANNING ONLY Final Result from Last 3 Months or Most Recently Relevant to Health Maintenance Insurance [facility] MEDICARE SELF PAY NO INSURANCE Member Subscriber Plan / Payer (Ef fective for All Dates) Name:Gal Paul Member ID:Not on file Relation to Subscriber:Not on file Name:GAL PAUL Subscriber ID:Not on file Address: [address] [place] [address] Payer ID:Not on file Group ID:Not on file Type:Self Pay Address: [place], [place] [facility] MEDICARE SELF PAY NO INSURANCE Member Subscriber Plan / Payer (Ef fective for All Dates) Name:Gal Paul Member ID:Not on file Relation to Subscriber:Not on file Name:GAL PAUL Subscriber ID:Not on file Address: [address] [place] [address] Payer ID:Not on file Group ID:Not on file Type:Self Pay Address: [place], [place] [facility] MEDICARE SELF PAY NO INSURANCE Member Subscriber Plan / Payer (Ef fective for All Dates) Name:Gal Paul Member ID:Not on file Relation to Subscriber:Not on file Name:GAL PAUL Subscriber ID:Not on file Address: [place] [address] Payer ID:Not on file Group ID:Not on file Type:Self Pay Address: [place] [address]
--- OUTSIDE RECORDS SUMMARY | 2025-03-22 15:13 | XMS_ITS ---
Author Name Auto Generated, Auto Generated Organization [facility] ice Address [address] [place] [address] Phone [phone] Care Team Providers Care Director Dental Services Name Role Phone Lloyd Randall Unavailable Functional Status Mental Status Allergies and Intolerances Problems Reason for Referral Past Medical History
--- OUTSIDE RECORDS SUMMARY | 2025-03-22 15:13 | XMS_ITS | Patient Health Record ---
Author Organization [facility] Address [address] [place], [place] [id number] Care Team Providers Care Tire Regrooving Machine Operator Name Role Phone SHAI Dunn Unavailable [phone] Joe Forte Unavailable Unavailable Reason For Referral No Information Medications Medication SIG (Take, Route, Frequency, Duration) Notes Start Date End Date Status aspirin 81 MG Delayed Release Oral Tablet [Carlos Aspirin] ORAL aspirin 81 MG Delayed Release Oral Tablet [Carlos Aspirin]Original Medicationaspirin 81 MG Delayed Release Oral Tablet [Carlos Aspirin] *Reorder from [employer] for eRx and Interaction Alerts* 11/28/2020 Active atorvastatin 40 MG Oral Tablet ORAL atorvastatin 40 MG Oral TabletOriginal Medicationatorvastatin 40 MG Oral Tablet *Reorder from [employer] for eRx and Interaction Alerts* 11/28/2020 Active thioctic acid 300 MG Oral Capsule ORAL thioctic acid 300 MG Oral CapsuleOriginal Medicationthioctic acid 300 MG Oral Capsule *Reorder from [employer] for eRx and Interaction Alerts* 11/28/2020 Active Plan Of Treatment No Information Insurance Providers Payer Name Payer Address Payer Phone Subscriber Number Group Number Insured Name Patient Relationship to Insured Coverage Start Date Coverage End Date [facility] [address] [address] [place] [id number] GAL COOLEY Self - patient is the insured
--- OUTSIDE RECORDS SUMMARY | 2025-03-22 15:13 | XMS_ITS | Clinical Summary ---
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 CAD (coronary atherosclerotic disease) 9 History of heart artery stent 09/20/2018 Metabolic encephalopathy 09/20/2018 Type 1 diabetes mellitus wit h diabetic peripheral angiopathy without gangrene 09/20/2018 Immunizations Immunization Administration Dates Next Due (TATE'S LIST)(12 YR UP) COVID-19 VACCINE - EMERGENCY USE AUTHORIZATION, MRNA, [id number](PF) 30 MCG/0.3 ML IM SUSP 05/27/2021,11/17/2020,10/27/2020 INFLUENZA [...] oz pur e alcohol) once a year Sex and Gender Information Value Date Recorded [...] 10:41 AM CDT Height 170.2 cm (5' 7) 12/19/2022 10:4 1 AM CDT Body Mass Index 21.72 12/19/2022 10:41 AM CDT Plan of Treatment Health Maintenance Due Date Last Done Comments DTAP/TDAP/TD VACCINES (1 - Tdap) 1971 FIT-DNA Q 3 years 1997 FIT/FOBT Q 1 year 1997 Flex Sig/CT Colonography Q 5 years 1997 RSV VACCINE (60+ or ) (1 - Risk 60-74 years 1-dose series) 2012 PNEUMOCOCCAL VACCINE 50+ YEA RS (2 of 2 - PCV) 06/16/2017 06/16/2016 DIABETES ANNUAL RETINAL EXAM 12/30/2022 12/30/2021, 04/15/2021 DIABETES MICROALBUMIN ANNUAL SCREEN 01/03/2024 01/02/2023, 06/04/2021 LDL CHOLESTEROL ANNUAL 01/03/2024 3, 06/04/2021, 01/03/2016 DIABETES HBA1C Q 6 MONTHS 02/16/20242022, 01/02/2023, 06/04/2021, Additional history exists COVID-19 Vaccine ( - 2023-2 5 season) 2024 05/27/2021, 11/17/2020, 10/27/2020 DIABETES ANNUAL FOOT EXAM 08/17/20242022, 09/22/2022, 09/23/2021 INFLUENZA VACCINE (#1) 2025 , 07/01/2022, 06/29/2022, Additional history exists COLORECTAL SCREENING 10/28/2033 10/29/2023 Colorectal Cancer Screening [...] * LIPID RFLX (01/02/2023 9:18 AM CDT) CHOLESTEROL 121 <200 mg/dL [facility] HDL 61 > OR = 40 mg/dL [facility] TRIGLYCERIDE 97 <150 mg/dL [facility] LDL CALCULATED 42 mg/dL (calc) [facility] Comment: Reference range: <100 Desirable range <100 mg/dL for primary prevention; <70 mg/dL for patients with CHD or diabetic patients with > or = 2 CHD risk factors. LDL-C is now calculated using the Esvin calculation, which is a validated novel method providing better accuracy than the Friedewald equation in the estimation of LDL-C. Luis Armando BLACK et al. SAGAR. 2013;310(19): 9608-6241 (http://education.Motion Engine/faq/FEZ359) CHOL/HDL RATIO 2.0 <5.0 (calc) [facility] Se[facility] TOTAL NON-HDL CHOL(LDL+VLDL) 60 <130 mg/dL (calc) [facility] Kunal Comment: For patients with diabetes plus 1 major ASCVD risk factor, treating to a non-HDL-C goal of <100 mg/dL (LDL-C of <70 mg/dL) is considered a therapeutic option. FASTING:YES FASTING: YES Test Performed at: [facility] [address] [place] [address] Herlinda-Padmini Mooney Blood 01/02/2023 9:18 AM CDT 01/02/2023 9:22 AM CDT us Sheela Kim NP CHEMISTRY ORDERABLES Final R esult [facility] [phone] [place] [address] [place] [address] * MICROALBUMIN/CREATININE RATIO, RANDOM UR (01/02/2023 9:18 AM CDT) Creatinine, Urine 34 20 - 320 mg/dL [facility] MICROALBUMIN, URINE 1.0 See Note: mg/dL [facility] Comment: Reference Range: Reference Range Not established MICROALBUMIN/CREAT RATIO, UR 29 <30 mcg/mg creat [facility] Comment: The ADA defines abnormalities in [...] category. FASTING:YES FASTING: YES Test Performed at: [facility] [address] [place] [address] Bridget Clemente MD 01/02/2023 9:18 AM CDT 01/02/2023 9:22 AM CDT us Sheela Kim IUSS MASTER ANALYST URINE ORDERABLES Final Resul t [facility] [phone] [facility] [address] [place] [address] [place] [address] * (ABNORMAL) HEMOGLOBIN A1C (01/02/2023 9:18 AM CDT) HEMOGLOBIN A1C 8.9(H) <5.7 % of total Hgb [facility] Comment: For someone without known diabetes, [...] children. ESTIMATED AVERAGE GLUCOSE (MG/DL) 209 mg/dL [facility] ESTIMATED AVERAGE GLUCOSE (MMOL/L) 11.6 mmol/L [facility] Comment: FASTING:YES FASTING: YES Test Performed at: [facility] [id number] [place] [address] Bridget Clemente Blood 01/02/2023 9:18 AM CDT 01/02/2023 9:22 AM CDT us Sheela Kim NP CHEMISTRY ORDERABLES Final R esult [facility] [phone] [facility] [address] [place] [address] * DIABETES EYE EXAM (12/30/2021) us Abstract Provider HEALTH MAINTENANCE Edited Resu lt - Final [facility]# [id number] [address] [place] [address] from Last 3 Months or Most Recently Relevant to Health Maintenance [place] [facility] Address: [place] [address]
[2025-03-22] MEDS: DEXTROSE 50% 25 GM/50 ML SYRINGE (17:47)
--- NOTE | 2025-03-22 21:15 | PC.NURSE ---
This patient, Mirza Griffin, was admitted to IMU Room 205-01. Patient/family oriented to hospital policies and general routines including ID bracelet, bed and alarms, visiting hours, pain management, procedures, bathroom and other care routines, personal items, smoking policy, room service/diet, and visiting hours. Information on how to activate the Rapid Response Team has been discussed. Patient/Family are encouraged to report perceived risks to care and to ask questions if they do not understand what they are told or what they should do.
[2025-03-22 21:58] LABS: Influenza A QL RT-PCR Negative (Negative); Influenza B QL RT-PCR Negative (Negative); RSV RNA, RT-PCR Negative (Negative); SARS-CoV-2 RNA PCR Negative (Negative)
[2025-03-22] MEDS: KCL 20 MEQ/0.45% NS 1,000 ML 100 ML IV CONT (22:15)
[2025-03-23] VITALS (15 sets, daily range): BP systolic 103–147; BP diastolic 50–73; PULSE 77–105; RESP 16–18; TEMP 36.6–36.9; O2SAT 95–100
[2025-03-23] MEDS: INSULIN ASPART (*BKC) 100 UNITS/ML 8 UNITS SUB-Q (03:05)
[2025-03-23] MEDS: ONDANSETRON INJ 4 MG/2 ML VIAL IV PUSH ×2 (03:09→08:47)
[2025-03-23 03:23] LABS: Hematocrit 41.6 % (42.0-52.0); Hemoglobin 13.3 g/dL (14.0-18.0); Immature Granulocyte Percent A 0.4 % (0-0.5); Lymphocytes Absolute Auto 0.62 K/mm3 (0.9-3.2); Mean Corpuscular HGB Conc 32.0 g/dl (32-36); Mean Corpuscular Hemoglobin 28.9 pg (26-34); Mean Corpuscular Volume 90.2 fl (80-100); Nucleated Red Blood Cells Absolute Auto 0.000 K/mm3 (0.0-0.012); Nucleated Red Blood Cells Perc 0.0 % (0.0-0.2); Platelet Count Result 259 k/mm3 (150-375); Red Blood Count 4.61 M/mm3 (4.6-6.20); White Blood Count 19.5 K/mm3 (4.5-10.0)
[2025-03-23] MEDS: INSULIN GLARGINE (*BKC) 100 UNITS/ML 10 UNITS SUB-Q (03:36)
[2025-03-23 03:43] LABS: Magnesium 1.8 mg/dL (1.6-2.3)
[2025-03-23 03:56] LABS: Anion Gap 10 mmol/L (4-12); Blood Urea Nitrogen 22 mg/dL (9-20); Calcium 8.8 mg/dL (8.4-10.2); Carbon Dioxide 22 mmol/L (22-30); Chloride 92 mmol/L (98-107); Estimated CRCL calculation 31 ml/min; Estimated Glomerular Filt Rate 45; Glucose 565 mg/dL (65-110); Potassium 5.9 mmol/L (3.4-5.0); Sodium 124 mmol/L (137-145)
[2025-03-23 04:14] LABS: Thyroid Stimulating Hormone Reflex 0.352 uIU/mL (0.465-4.68)
[2025-03-23] MEDS: INSULIN ASPART (*BKC) 100 UNITS/ML 6 UNITS SUB-Q (05:10)
[2025-03-23] MEDS: ASPIRIN 81 MG CHEWABLE TABLET PO (08:32)
[2025-03-23] MEDS: DONEPEZIL HCL 10 MG TABLET PO (08:32)
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
[2025-03-23 09:56] LABS: Anion Gap 9 mmol/L (4-12); Blood Urea Nitrogen 24 mg/dL (9-20); Calcium 9.0 mg/dL (8.4-10.2); Carbon Dioxide 23 mmol/L (22-30); Chloride 99 mmol/L (98-107); Creatine Kinase 510 U/L (55-170); Estimated CRCL calculation 34 ml/min; Estimated Glomerular Filt Rate 51; Glucose 188 mg/dL (65-110); Potassium 4.8 mmol/L (3.4-5.0); Sodium 131 mmol/L (137-145)
[2025-03-23] MEDS: SODIUM CHLORIDE 0.9% IV 1,000 ML 100 ML IV CONT (10:07)
[2025-03-23] MEDS: INSULIN ASPART (*BKC) 100 UNITS/ML SUB-Q ×2 (17:22)
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
[2025-03-23 20:21] LABS: Hematocrit 37.1 % (42.0-52.0); Hemoglobin 12.0 g/dL (14.0-18.0); Mean Corpuscular HGB Conc 32.3 g/dl (32-36); Mean Corpuscular Hemoglobin 28.9 pg (26-34); Mean Corpuscular Volume 89.4 fl (80-100); Platelet Count Result 250 k/mm3 (150-375); Red Blood Count 4.15 M/mm3 (4.6-6.20); White Blood Count 19.5 K/mm3 (4.5-10.0)
[2025-03-23 21:58] LABS: Free T4 Free Thyroxine Reflex 1.91 ng/dL (0.78-2.19)
[2025-03-23 22:25] LABS: Add Urine Microscopic? YES; Appearance Urine Clear (Clear); Glucose Urine UA 1+ mg/dL (Negative); Leukocyte Esterase Ur 2+ LEU/UL (Negative); Nitrate Urine Negative (Negative); Non Pathogenic Casts 0-2; Specific Grav Ur 1.018 (1.001-1.035)
[2025-03-24] VITALS (16 sets, daily range): BP systolic 145–160; BP diastolic 63–77; PULSE 68–81; RESP 12–20; TEMP 36.4–36.9; O2SAT 95–99; BMI 18.3
[2025-03-24] MEDS: SODIUM CHLORIDE 0.9% IV 1,000 ML 100 ML IV CONT ×3 (00:12→19:57)
[2025-03-24] MEDS: MELATONIN 5 MG TABLET PO (02:00)
[2025-03-24] MEDS: ASPIRIN 81 MG CHEWABLE TABLET PO (07:53)
[2025-03-24] MEDS: DONEPEZIL HCL 10 MG TABLET PO (07:53)
[2025-03-24] MEDS: INSULIN ASPART (*BKC) 100 UNITS/ML SUB-Q ×5 (07:54→16:05)
[2025-03-24] MEDS: cefTRIAXone 1 GM in SODIUM CHLORIDE 0.9% IV 50 ML 100 ML IVPB (13:02)
[2025-03-24] MEDS: INSULIN GLARGINE (*BKC) 100 UNITS/ML 12 UNITS SUB-Q (16:04)
[2025-03-24 17:07] LABS: Total Triiodothyronine (T3) 0.88 NG/ML (0.82-1.58)
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
[2025-03-25] VITALS (7 sets, daily range): BP systolic 122–160; BP diastolic 53–67; PULSE 58–79; RESP 12–20; TEMP 36.6–36.7; O2SAT 96–100
[2025-03-25] MEDS: SODIUM CHLORIDE 0.9% IV 1,000 ML 100 ML IV CONT ×2 (05:28→16:41)
[2025-03-25] MEDS: ASPIRIN 81 MG CHEWABLE TABLET PO (08:11)
[2025-03-25] MEDS: DONEPEZIL HCL 10 MG TABLET PO (08:11)
[2025-03-25] MEDS: INSULIN ASPART (*BKC) 100 UNITS/ML SUB-Q ×3 (08:11→20:55)
[2025-03-25 09:18] LABS: Hematocrit 36.6 % (42.0-52.0); Hemoglobin 11.7 g/dL (14.0-18.0); Mean Corpuscular HGB Conc 32.0 g/dl (32-36); Mean Corpuscular Hemoglobin 29.0 pg (26-34); Mean Corpuscular Volume 90.6 fl (80-100); Platelet Count Result 221 k/mm3 (150-375); Red Blood Count 4.04 M/mm3 (4.6-6.20); White Blood Count 9.0 K/mm3 (4.5-10.0)
[2025-03-25 09:41] LABS: Anion Gap 4 mmol/L (4-12); Blood Urea Nitrogen 12 mg/dL (9-20); Calcium 8.2 mg/dL (8.4-10.2); Carbon Dioxide 27 mmol/L (22-30); Chloride 102 mmol/L (98-107); Estimated CRCL calculation 45 ml/min; Estimated Glomerular Filt Rate > 60; Glucose 123 mg/dL (65-110); Magnesium 1.9 mg/dL (1.6-2.3); Potassium 3.7 mmol/L (3.4-5.0); Sodium 133 mmol/L (137-145)
[2025-03-25] MEDS: ONDANSETRON INJ 4 MG/2 ML VIAL IV PUSH (10:38)
[2025-03-25] MEDS: cefTRIAXone 1 GM in SODIUM CHLORIDE 0.9% IV 50 ML 100 ML IVPB (10:39)
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
[2025-03-25] MEDS: INSULIN GLARGINE (*BKC) 100 UNITS/ML 12 UNITS SUB-Q (17:38)
[2025-03-26] MEDS: TAMSULOSIN HCL 0.4 MG CAPSULE PO ×2 (01:43→08:26)
[2025-03-26] MEDS: SODIUM CHLORIDE 0.9% IV 1,000 ML 100 ML IV CONT ×3 (01:48→23:18)
[2025-03-26 05:18] LABS: Hematocrit 37.7 % (42.0-52.0); Hemoglobin 12.2 g/dL (14.0-18.0); Mean Corpuscular HGB Conc 32.4 g/dl (32-36); Mean Corpuscular Hemoglobin 28.9 pg (26-34); Mean Corpuscular Volume 89.3 fl (80-100); Platelet Count Result 249 k/mm3 (150-375); Red Blood Count 4.22 M/mm3 (4.6-6.20); White Blood Count 9.4 K/mm3 (4.5-10.0)
[2025-03-26 05:47] LABS: Anion Gap 4 mmol/L (4-12); Blood Urea Nitrogen 11 mg/dL (9-20); Calcium 8.1 mg/dL (8.4-10.2); Carbon Dioxide 26 mmol/L (22-30); Chloride 100 mmol/L (98-107); Estimated CRCL calculation 52 ml/min; Estimated Glomerular Filt Rate > 60; Glucose 34 mg/dL (65-110); Magnesium 1.9 mg/dL (1.6-2.3); Potassium 3.4 mmol/L (3.4-5.0); Sodium 130 mmol/L (137-145)
[2025-03-26] MEDS: DEXTROSE 50% 25 GM/50 ML SYRINGE IV PUSH (05:57)
[2025-03-26 06:00] VITALS: BP 127/52; PULSE 68; RESP 16; TEMP 36.5; O2SAT 100
--- NOTE | 2025-03-26 06:10 | P.PNCROSS_ITS ---
Event Note Event Note Event Note: Nurse calls to report glucose is 34 on the morning BMP. Patient is asymptomati c. Hypoglycemia protocol activated by nurse. Will be rechecking Accu-Chek. Placed all insulin orders on hold.
[2025-03-26] MEDS: POTASSIUM CHLORIDE 20 MEQ PACKET (FOR LIQUID) 40 MEQ PO (08:25)
[2025-03-26] MEDS: DONEPEZIL HCL 10 MG TABLET PO (08:26)
[2025-03-26] MEDS: ASPIRIN 81 MG CHEWABLE TABLET PO (08:26)
[2025-03-26] MEDS: cefTRIAXone 1 GM in SODIUM CHLORIDE 0.9% IV 50 ML 100 ML IVPB (10:04)
[2025-03-26] MEDS: INSULIN GLARGINE (*BKC) 100 UNITS/ML 8 UNITS SUB-Q (10:20)
[2025-03-26] MEDS: INSULIN ASPART (*BKC) 100 UNITS/ML SUB-Q ×2 (11:58→17:33)
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
[2025-03-26 14:00] VITALS: BP 140/58; PULSE 68; RESP 12; TEMP 36.6; O2SAT 99
[2025-03-26 22:00] VITALS: BP 127/51; PULSE 73; RESP 18; TEMP 37; O2SAT 98
[2025-03-26 22:08] VITALS: PULSE 75; RESP 20; O2SAT 97
[2025-03-27 05:22] LABS: Hematocrit 36.1 % (42.0-52.0); Hemoglobin 11.4 g/dL (14.0-18.0); Mean Corpuscular HGB Conc 31.6 g/dl (32-36); Mean Corpuscular Hemoglobin 28.6 pg (26-34); Mean Corpuscular Volume 90.7 fl (80-100); Platelet Count Result 232 k/mm3 (150-375); Red Blood Count 3.98 M/mm3 (4.6-6.20); White Blood Count 7.9 K/mm3 (4.5-10.0)
[2025-03-27 05:39] LABS: Blood Urea Nitrogen 7 mg/dL (9-20); Carbon Dioxide 25 mmol/L (22-30); Estimated CRCL calculation 55 ml/min; Estimated Glomerular Filt Rate > 60; Magnesium 1.9 mg/dL (1.6-2.3)
[2025-03-27 05:54] LABS: Anion Gap 5 mmol/L (4-12); Calcium 8.1 mg/dL (8.4-10.2); Chloride 104 mmol/L (98-107); Glucose 160 mg/dL (65-110); Potassium 4.1 mmol/L (3.4-5.0); Sodium 134 mmol/L (137-145)
[2025-03-27 06:00] VITALS: BP 134/52; PULSE 64; RESP 20; TEMP 37; O2SAT 96
--- NOTE | 2025-03-27 08:40 | P.CDI_ITS ---
CDI Query Clarification Request BMI: 19.4 Nutritional Diagnostic Statement: Please refer to the comprehensive nutrition assessment for further information. If you agree with diagnosis of Severe protein calorie malnutrition related to inadequate energy intake as evidenced by pt report of poor po intake for greater than 1 month, a significant weight loss of -12% x 5 months, and NFPE findings for severe subcutaneous fat loss (cheeks) and severe muscle wasting (orthodox, clavicle). Please specify severity if known: * Mild * Moderate * Severe * Other/Unknown <Tory Barnes RN - Last Filed: 03/27/25 08:40> Clarified Diagnosis Clarified Diagnosis: I agree with diagnosis of Severe protein calorie malnutrition related to inadequate energy intake as evidenced by pt report of poor po intake for greater than 1 month, a significant weight loss of -12% x 5 months, and NFPE findings for severe subcutaneous fat loss (cheeks) and severe muscle wasting (orthodox, clavicle) <Rufina Mendiola MD - Last Filed: 04/10/25 10:25>
[2025-03-27] MEDS: DONEPEZIL HCL 10 MG TABLET PO (09:20)
[2025-03-27] MEDS: ASPIRIN 81 MG CHEWABLE TABLET PO (09:20)
[2025-03-27] MEDS: TAMSULOSIN HCL 0.4 MG CAPSULE PO ×2 (09:22→18:42)
[2025-03-27] MEDS: INSULIN GLARGINE (*BKC) 100 UNITS/ML 8 UNITS SUB-Q (10:07)
[2025-03-27] MEDS: cefTRIAXone 1 GM in SODIUM CHLORIDE 0.9% IV 50 ML 100 ML IVPB (10:54)
[2025-03-27] MEDS: INSULIN ASPART (*BKC) 100 UNITS/ML 8 UNITS SUB-Q (11:59)
[2025-03-27] MEDS: INSULIN GLARGINE (*BKC) 100 UNITS/ML SUB-Q (12:00)
[2025-03-27 13:42] VITALS: BP 169/63; PULSE 73; RESP 14; O2SAT 99
[2025-03-27] MEDS: INSULIN ASPART (*BKC) 100 UNITS/ML 10 UNITS SUB-Q (14:13)
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
--- NOTE | 2025-03-27 15:40 | PCCDE ---
Addendum entered by Marli Gauthier, RD, LDN, CDE 03/27/25 17:20: Due to pump difficulty and guessing mealtime dosing when on pump at home - I don't encourage reconnecting insulin pump prior to DC. Pt also with Intermittent forgetfulness. I had discussed with family Thursday if DC on Lantus to hold resuming basal insulin x 24 hrs. Original Note: 03/26/25 POC: [phone] 03/27: [phone] GLu: 03/25: 123 03/26: 04:37: 34 03/27: 160 Meds: Lantus 8 U Q am Corrections: Novolog 8 U 11:59a + Novolog 10 U 14:13 Lantus 4 U 12:00 1x/dose (03/27/25) Spoke with George VALENTIN - Basal insulin has been reduced as well as mealtime bolus on hold with recent hypoglycemia event. Glucose now trending significantly high -> Multiple correction one-time insulin orders RECOMMEND: continue Lantus 8 U QAM Add Novolog 2 U TIDwm (50% reduction) Continue low dose correction TIDwm. Monitor glucose trends for appropriate insulin ?titration. Thank you for this consult.
[2025-03-27] MEDS: INSULIN ASPART (*BKC) 100 UNITS/ML SUB-Q (17:23)
[2025-03-27 21:33] VITALS: BP 148/72; PULSE 68; RESP 20; TEMP 36.5; O2SAT 100
[2025-03-28 05:00] VITALS: BP 129/66; PULSE 65; RESP 18; TEMP 36.5; O2SAT 98
[2025-03-28 05:22] LABS: Hematocrit 37.8 % (42.0-52.0); Hemoglobin 12.0 g/dL (14.0-18.0); Mean Corpuscular HGB Conc 31.7 g/dl (32-36); Mean Corpuscular Hemoglobin 28.7 pg (26-34); Mean Corpuscular Volume 90.4 fl (80-100); Platelet Count Result 244 k/mm3 (150-375); Red Blood Count 4.18 M/mm3 (4.6-6.20); White Blood Count 8.3 K/mm3 (4.5-10.0)
[2025-03-28 05:51] LABS: Anion Gap 5 mmol/L (4-12); Blood Urea Nitrogen 13 mg/dL (9-20); Calcium 8.4 mg/dL (8.4-10.2); Carbon Dioxide 27 mmol/L (22-30); Chloride 101 mmol/L (98-107); Estimated CRCL calculation 54 ml/min; Estimated Glomerular Filt Rate > 60; Glucose 160 mg/dL (65-110); Magnesium 2.0 mg/dL (1.6-2.3); Potassium 4.3 mmol/L (3.4-5.0); Sodium 133 mmol/L (137-145)
[2025-03-28] MEDS: CEPHALEXIN 500 MG CAPSULE PO ×2 (08:56→22:17)
[2025-03-28] MEDS: TAMSULOSIN HCL 0.4 MG CAPSULE PO ×2 (08:56→17:54)
[2025-03-28] MEDS: INSULIN GLARGINE (*BKC) 100 UNITS/ML 8 UNITS SUB-Q (08:56)
[2025-03-28] MEDS: DONEPEZIL HCL 10 MG TABLET PO (08:56)
[2025-03-28] MEDS: ASPIRIN 81 MG CHEWABLE TABLET PO (08:56)
[2025-03-28] MEDS: INSULIN ASPART (*BKC) 100 UNITS/ML SUB-Q ×5 (08:58→17:55)
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
[2025-03-28 13:53] VITALS: BP 153/66; PULSE 68; RESP 14; TEMP 36.8; O2SAT 100
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
[2025-03-28 20:00] VITALS: PULSE 72; RESP 18; O2SAT 100
[2025-03-28 20:48] VITALS: BP 151/65; PULSE 72; RESP 18; TEMP 36.4; O2SAT 100
[2025-03-29 03:08] VITALS: BP 142/67; PULSE 66; RESP 18; TEMP 36.5; O2SAT 97
[2025-03-29 05:12] LABS: Hematocrit 38.4 % (42.0-52.0); Hemoglobin 12.4 g/dL (14.0-18.0); Mean Corpuscular HGB Conc 32.3 g/dl (32-36); Mean Corpuscular Hemoglobin 28.9 pg (26-34); Mean Corpuscular Volume 89.5 fl (80-100); Platelet Count Result 237 k/mm3 (150-375); Red Blood Count 4.29 M/mm3 (4.6-6.20); White Blood Count 8.8 K/mm3 (4.5-10.0)
[2025-03-29 05:46] LABS: Anion Gap 3 mmol/L (4-12); Blood Urea Nitrogen 14 mg/dL (9-20); Calcium 8.7 mg/dL (8.4-10.2); Carbon Dioxide 30 mmol/L (22-30); Chloride 96 mmol/L (98-107); Estimated CRCL calculation 47 ml/min; Estimated Glomerular Filt Rate > 60; Glucose 150 mg/dL (65-110); Magnesium 2.2 mg/dL (1.6-2.3); Potassium 4.9 mmol/L (3.4-5.0); Sodium 129 mmol/L (137-145)
[2025-03-29] MEDS: ASPIRIN 81 MG CHEWABLE TABLET PO (08:51)
[2025-03-29] MEDS: CEPHALEXIN 500 MG CAPSULE PO ×2 (08:51→20:52)
[2025-03-29] MEDS: TAMSULOSIN HCL 0.4 MG CAPSULE PO ×2 (08:51→17:48)
[2025-03-29] MEDS: DONEPEZIL HCL 10 MG TABLET PO (08:51)
[2025-03-29] MEDS: INSULIN ASPART (*BKC) 100 UNITS/ML SUB-Q ×4 (08:52→12:30)
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
[2025-03-29 14:00] VITALS: BP 92/43; PULSE 80; RESP 16; TEMP 36.6; O2SAT 99
--- NOTE | 2025-03-29 14:37 | PCNFU ---
Nutrition Follow-Up Complete: Severe protein calorie malnutrition related to inadequate energy intake as evidenced by pt report of poor po intake for greater than 1 month, a significant weight loss of -12% x 5 months, and NFPE findings for severe subcutaneous fat loss (cheeks) and severe muscle wasting (catholic, clavicle). Goal: PO intake 75% of meals and supplements Patient is meeting goal. No new goal. Pt current nutrition is DBCC diet with Glucerna shake BID. Last recorded weight is 54.9 kg, up from 53 kg on admit. Bowel Motility: Last reported BM 03/28 Labs Reviewed: Na 129, Glu 150, Hgb 12.4, Hct 38.4 Meds Noted:NovoLog, Lantus Skin: WNL Additional Notes: Patient remains on a DBCC diet. Oral Intake > 75% of meals. Diet supplements providing an additional 240 kcal and 10 gm protein. Agree with diet orders. Monitor intake, wt, labs. Follow up in 5 days.
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
[2025-03-29 21:15] VITALS: BP 128/64; PULSE 77; RESP 20; TEMP 36.2; O2SAT 100
[2025-03-29 21:29] VITALS: O2SAT 99
[2025-03-30] VITALS (7 sets, daily range): BP systolic 97–119; BP diastolic 49–61; PULSE 68–81; RESP 14–20; TEMP 36.4–36.8; O2SAT 95–100
--- NOTE | 2025-03-30 02:21 | P.PNCROSS_ITS ---
Event Note Event Note Event Note: Patient had old pump reinstalled today. Nurse notified me his Dexcom was readi ng glucose of 40, but the hospital device reading 70. After orange juice, his Dexcom was reading 70 but the hospital device reading 57. Unclear which device reliable or not. His insulin pump has been turned off, cannot tell me what his blood sugars have been when he was bolusing himself. He bolused himself 10 units around noon and 2.7 units again at 11:00 p.m.. Otherwise it has been at a basal rate of 0.7 units/hour. Nurse continues to administer hypoglycemia protocol with glucose rechecks. The patient was asymptomatic.
--- NOTE | 2025-03-30 02:43 | PC.NURSE ---
PT NOTIFIED STAFF THAT HIS DEXCOM WAS READING LOW BLOOD SUGAR AT 40. PCT CHECKED PT BG ON OUR ACCUCHECK MACHINE AND THE READING WAS IN THE 70'S. PT WAS WEARING HIS HOME INSULIN PUMP AND WAS TO BE ADMINISTERING INSULIN HIMSELF. FAMILY WAS INSISTENT ABOUT PT WEARING INSULIN PUMP EVEN THOUGH THEY WERE ADVISED BY THE PHYSICIAN THE PT WAS NOT ABLE TO PROPERLY MANAGE PUMP. PT HAS HX OF DEMENTIA. REVIEWING PT PUMP IT APPEARS HE HAD BOLUSED HIMSELF FOR NO REASON AT 11PM. PT DID NOT RECALL BOLUSING HIMSELF. I DISCONNECTED INSULIN PUMP FROM PT ABDOMEN AND NOTIFIED PROVIDER. PROVIDER CAME TO ASSESS PT AND PT PUMP. GAVE PT SNACK AND RECHECKED BG IT WAS 76. PT WAS NOT SYMPTOMATIC WITH ANY OF THE LOW READINGS.
[2025-03-30 04:54] LABS: Hematocrit 37.7 % (42.0-52.0); Hemoglobin 12.4 g/dL (14.0-18.0); Mean Corpuscular HGB Conc 32.9 g/dl (32-36); Mean Corpuscular Hemoglobin 28.8 pg (26-34); Mean Corpuscular Volume 87.5 fl (80-100); Platelet Count Result 272 k/mm3 (150-375); Red Blood Count 4.31 M/mm3 (4.6-6.20); White Blood Count 10.5 K/mm3 (4.5-10.0)
[2025-03-30 05:06] LABS: Anion Gap 8 mmol/L (4-12); Blood Urea Nitrogen 26 mg/dL (9-20); Calcium 8.9 mg/dL (8.4-10.2); Carbon Dioxide 27 mmol/L (22-30); Chloride 97 mmol/L (98-107); Estimated CRCL calculation 42 ml/min; Estimated Glomerular Filt Rate > 60; Glucose 183 mg/dL (65-110); Magnesium 2.3 mg/dL (1.6-2.3); Potassium 5.9 mmol/L (3.4-5.0); Sodium 132 mmol/L (137-145)
[2025-03-30] MEDS: INSULIN ASPART (*BKC) 100 UNITS/ML SUB-Q ×2 (09:55→18:26)
[2025-03-30] MEDS: INSULIN GLARGINE (*BKC) 100 UNITS/ML 8 UNITS SUB-Q (10:05)
[2025-03-30] MEDS: CEPHALEXIN 500 MG CAPSULE PO ×2 (10:10→20:19)
[2025-03-30] MEDS: ASPIRIN 81 MG CHEWABLE TABLET PO (10:10)
[2025-03-30] MEDS: TAMSULOSIN HCL 0.4 MG CAPSULE PO ×2 (10:10→17:24)
[2025-03-30] MEDS: DONEPEZIL HCL 10 MG TABLET PO (10:10)
[2025-03-30] MEDS: SODIUM ZIRCONIUM CYCLOSILICATE 10 GM POWD.PACK PO ×2 (10:11→17:24)
--- NOTE | 2025-03-30 11:04 | PC.NURSE ---
RN started shift and assessment with patient's pump off. BARBIE Edwards stated in report there was an incident with hypoglycemia. RN talked to a family member on patient's personal phone and updated him. Patient's son is now present in room and wants the pump back for him to look at it. MD Mendiola has talked to family and briefed RN. RN is returning the pump to family and educating patient and family on concerns of hypoglycemia. They are aware of the risks. RN does not advise this.
[2025-03-30] MEDS: INSULIN ASPART (*BKC) 100 UNITS/ML 10 UNITS SUB-Q ×2 (11:47→20:38)
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
--- NOTE | 2025-03-30 14:21 | PC.NURSE ---
RN took patient's blood sugar and updated MD Mendiola about elevated value. MD Mendiola said to wait for the peak and then check again. No new orders were ordered.
[2025-03-30 17:43] LABS: Non Pathogenic Casts 0-2
[2025-03-30 17:50] LABS: Add Urine Microscopic? YES; Appearance Urine Clear (Clear); Glucose Urine UA 3+ mg/dL (Negative); Leukocyte Esterase Ur Trace LEU/UL (Negative); Nitrate Urine Negative (Negative); Specific Grav Ur 1.012 (1.001-1.035)
--- NOTE | 2025-03-30 18:13 | PC.NURSE ---
Patient's son brought in insulin orders from captain airline pilot.
[2025-03-30] MEDS: INSULIN GLARGINE (*BKC) 100 UNITS/ML SUB-Q (18:25)
[2025-03-31] VITALS (9 sets, daily range): BP systolic 107–137; BP diastolic 55–63; PULSE 56–94; RESP 14–16; TEMP 36.6–37; O2SAT 96–100
--- NOTE | 2025-03-31 00:14 | PC.NURSE ---
RECHECKED PT BG @ 0000 PER PROVIDER REQUEST TO CHECK 4HR AFTER NOVOLOG GIVEN. PT WAS 101. PT REQUESTED A SNACK PROVIDED 2 JELLOS AND A DIET SODA.
--- NOTE | 2025-03-31 06:39 | PC.NURSE ---
PT 0600 BG WAS 73. GAVE PT SNACK OF 8OZ OJ AND 2PACKS OF MARE CRACKERS. PT COMFORTABLE IN BED
[2025-03-31] MEDS: DONEPEZIL HCL 10 MG TABLET PO (08:22)
[2025-03-31] MEDS: ASPIRIN 81 MG CHEWABLE TABLET PO (08:22)
[2025-03-31] MEDS: INSULIN ASPART (*BKC) 100 UNITS/ML SUB-Q ×5 (08:22→17:13)
[2025-03-31] MEDS: TAMSULOSIN HCL 0.4 MG CAPSULE PO ×2 (08:22→17:13)
[2025-03-31 08:41] LABS: Hematocrit 38.3 % (42.0-52.0); Hemoglobin 12.3 g/dL (14.0-18.0); Immature Granulocyte Percent A 0.4 % (0-0.5); Lymphocytes Absolute Auto 1.15 K/mm3 (0.9-3.2); Mean Corpuscular HGB Conc 32.1 g/dl (32-36); Mean Corpuscular Hemoglobin 28.8 pg (26-34); Mean Corpuscular Volume 89.7 fl (80-100); Nucleated Red Blood Cells Absolute Auto 0.000 K/mm3 (0.0-0.012); Nucleated Red Blood Cells Perc 0.0 % (0.0-0.2); Platelet Count Result 267 k/mm3 (150-375); Red Blood Count 4.27 M/mm3 (4.6-6.20); White Blood Count 9.1 K/mm3 (4.5-10.0)
[2025-03-31 09:01] LABS: Alanine Aminotransferase 14 U/L (6-50); Albumin Level 3.8 g/dL (3.5-5.1); Alkaline Phosphatase 75 U/L (38-126); Anion Gap 2 mmol/L (4-12); Aspartate Amino Transferase 33 U/L (17-59); Bilirubin,Total 0.5 mg/dL (0.2-1.3); Blood Urea Nitrogen 24 mg/dL (9-20); Calcium 8.4 mg/dL (8.4-10.2); Carbon Dioxide 31 mmol/L (22-30); Chloride 91 mmol/L (98-107); Estimated CRCL calculation 51 ml/min; Estimated Glomerular Filt Rate > 60; Glucose 308 mg/dL (65-110); Magnesium 2.2 mg/dL (1.6-2.3); Potassium 4.9 mmol/L (3.4-5.0); Sodium 124 mmol/L (137-145); Total Protein 6.5 g/dL (6.3-8.2)
--- NOTE | 2025-03-31 10:09 | PC.NURSE ---
RN spoke to and updated patient's son, Grayson.
--- NOTE | 2025-03-31 10:32 | PC.NURSE ---
RN called MD Smyth about patient's insulin orders.
[2025-03-31] MEDS: INSULIN GLARGINE (*BKC) 100 UNITS/ML 8 UNITS SUB-Q (11:56)
[2025-03-31] MEDS: ONDANSETRON INJ 4 MG/2 ML VIAL IV PUSH (13:03)
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
[2025-03-31 16:58] LABS: Anion Gap 5 mmol/L (4-12); Blood Urea Nitrogen 25 mg/dL (9-20); Calcium 8.8 mg/dL (8.4-10.2); Carbon Dioxide 30 mmol/L (22-30); Chloride 91 mmol/L (98-107); Estimated CRCL calculation 43 ml/min; Estimated Glomerular Filt Rate > 60; Glucose 343 mg/dL (65-110); Potassium 4.8 mmol/L (3.4-5.0); Sodium 126 mmol/L (137-145)
[2025-03-31 18:39] LABS: Hemoglobin A1C 7.4 % (<5.7)
[2025-04-01] VITALS (9 sets, daily range): BP systolic 132–136; BP diastolic 56–65; PULSE 64–74; RESP 14–16; TEMP 36.6–36.8; O2SAT 97–100
[2025-04-01 05:21] LABS: Hematocrit 37.5 % (42.0-52.0); Hemoglobin 12.3 g/dL (14.0-18.0); Immature Granulocyte Percent A 0.3 % (0-0.5); Lymphocytes Absolute Auto 1.48 K/mm3 (0.9-3.2); Mean Corpuscular HGB Conc 32.8 g/dl (32-36); Mean Corpuscular Hemoglobin 28.9 pg (26-34); Mean Corpuscular Volume 88.2 fl (80-100); Nucleated Red Blood Cells Absolute Auto 0.000 K/mm3 (0.0-0.012); Nucleated Red Blood Cells Perc 0.0 % (0.0-0.2); Platelet Count Result 269 k/mm3 (150-375); Red Blood Count 4.25 M/mm3 (4.6-6.20); White Blood Count 9.6 K/mm3 (4.5-10.0)
[2025-04-01 05:33] LABS: Alanine Aminotransferase 13 U/L (6-50); Albumin Level 3.6 g/dL (3.5-5.1); Alkaline Phosphatase 80 U/L (38-126); Anion Gap 5 mmol/L (4-12); Aspartate Amino Transferase 27 U/L (17-59); Bilirubin,Total 0.4 mg/dL (0.2-1.3); Blood Urea Nitrogen 21 mg/dL (9-20); Calcium 8.4 mg/dL (8.4-10.2); Carbon Dioxide 28 mmol/L (22-30); Chloride 95 mmol/L (98-107); Estimated CRCL calculation 45 ml/min; Estimated Glomerular Filt Rate > 60; Glucose 424 mg/dL (65-110); Magnesium 2.1 mg/dL (1.6-2.3); Potassium 5.8 mmol/L (3.4-5.0); Sodium 128 mmol/L (137-145); Total Protein 6.4 g/dL (6.3-8.2)
[2025-04-01] MEDS: ASPIRIN 81 MG CHEWABLE TABLET PO (08:40)
[2025-04-01] MEDS: TAMSULOSIN HCL 0.4 MG CAPSULE PO ×2 (08:40→17:13)
[2025-04-01] MEDS: DONEPEZIL HCL 10 MG TABLET PO (08:40)
[2025-04-01] MEDS: INSULIN ASPART (*BKC) 100 UNITS/ML SUB-Q ×4 (08:41→17:14)
[2025-04-01] MEDS: INSULIN GLARGINE (*BKC) 100 UNITS/ML 12 UNITS SUB-Q (08:43)
[2025-04-01] MEDS: SODIUM ZIRCONIUM CYCLOSILICATE 10 GM POWD.PACK PO ×2 (09:55→17:18)
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
[2025-04-01] MEDS: INSULIN ASPART (*BKC) 100 UNITS/ML 10 UNITS SUB-Q (12:17)
[2025-04-02] VITALS: PULSE 57
[2025-04-02 04:00] VITALS: PULSE 62
[2025-04-02 05:33] LABS: Hematocrit 37.3 % (42.0-52.0); Hemoglobin 11.6 g/dL (14.0-18.0); Immature Granulocyte Percent A 0.5 % (0-0.5); Lymphocytes Absolute Auto 2.24 K/mm3 (0.9-3.2); Mean Corpuscular HGB Conc 31.1 g/dl (32-36); Mean Corpuscular Hemoglobin 28.3 pg (26-34); Mean Corpuscular Volume 91.0 fl (80-100); Nucleated Red Blood Cells Absolute Auto 0.000 K/mm3 (0.0-0.012); Nucleated Red Blood Cells Perc 0.0 % (0.0-0.2); Platelet Count Result 264 k/mm3 (150-375); Red Blood Count 4.10 M/mm3 (4.6-6.20); White Blood Count 10.1 K/mm3 (4.5-10.0)
[2025-04-02 05:46] VITALS: BP 136/58; PULSE 60; RESP 14; TEMP 36.5; O2SAT 96
[2025-04-02 05:47] LABS: Alanine Aminotransferase 11 U/L (6-50); Albumin Level 3.6 g/dL (3.5-5.1); Alkaline Phosphatase 70 U/L (38-126); Anion Gap 3 mmol/L (4-12); Aspartate Amino Transferase 37 U/L (17-59); Bilirubin,Total 0.3 mg/dL (0.2-1.3); Blood Urea Nitrogen 23 mg/dL (9-20); Calcium 8.5 mg/dL (8.4-10.2); Carbon Dioxide 30 mmol/L (22-30); Chloride 96 mmol/L (98-107); Estimated CRCL calculation 42 ml/min; Estimated Glomerular Filt Rate > 60; Glucose 111 mg/dL (65-110); Magnesium 2.3 mg/dL (1.6-2.3); Potassium 4.2 mmol/L (3.4-5.0); Sodium 129 mmol/L (137-145); Total Protein 6.3 g/dL (6.3-8.2)
[2025-04-02 08:00] VITALS: PULSE 80
[2025-04-02] MEDS: ASPIRIN 81 MG CHEWABLE TABLET PO (08:52)
[2025-04-02] MEDS: DONEPEZIL HCL 10 MG TABLET PO (08:52)
[2025-04-02] MEDS: TAMSULOSIN HCL 0.4 MG CAPSULE PO (08:52)
[2025-04-02] MEDS: INSULIN GLARGINE (*BKC) 100 UNITS/ML 12 UNITS SUB-Q (08:54)
[2025-04-02] MEDS: INSULIN ASPART (*BKC) 100 UNITS/ML SUB-Q ×2 (11:59→12:00)
[2025-04-02 12:00] VITALS: PULSE 78
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
[2025-04-02] MEDS: SODIUM ZIRCONIUM CYCLOSILICATE 10 GM POWD.PACK PO (12:11)
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
== END 2025-04-02 15:05 | disposition home health service (06) | DRG 637 ==
LOC: ANHED 18:03 → ANH3MEDSUR 18:48 → ANHIMU 20:46 → ANH2MED 03-25 15:39
PROVIDERS: Internal Medicine; Nurse Practitioner Gerontology; Admitting Provider Family Medicine; Emergency Provider Emergency Medicine; Visit Provider Internal Medicine
DX: E10.649 Type 1 diabetes mellitus with hypoglycemia without coma (principal); E43 Unspecified severe protein-calorie malnutrition; E87.1 Hypo-osmolality and hyponatremia; Z68.1 Body mass index [BMI] 19.9 or less, adult; E78.5 Hyperlipidemia, unspecified; E87.5 Hyperkalemia; E10.51 Type 1 diabetes mellitus with diabetic peripheral angiopathy without gangrene; E10.22 Type 1 diabetes mellitus with diabetic chronic kidney disease; F01.A0 Vascular dementia, mild, without behavioral disturbance, psychotic disturbance, mood disturbance, and anxiety; F32.A Depression, unspecified; F17.210 Nicotine dependence, cigarettes, uncomplicated; D72.829 Elevated white blood cell count, unspecified; E10.42 Type 1 diabetes mellitus with diabetic polyneuropathy; I12.9 Hypertensive chronic kidney disease with stage 1 through stage 4 chronic kidney disease, or unspecified chronic kidney disease; J43.9 Emphysema, unspecified; N17.9 Acute kidney failure, unspecified; N40.1 Benign prostatic hyperplasia with lower urinary tract symptoms; N18.30 Chronic kidney disease, stage 3 unspecified; R41.82 Altered mental status, unspecified; R68.0 Hypothermia, not associated with low environmental temperature; R33.8 Other retention of urine; R31.29 Other microscopic hematuria; Z66 Do not resuscitate; Z79.4 Long term (current) use of insulin; Z86.73 Personal history of transient ischemic attack (TIA), and cerebral infarction without residual deficits; Z87.828 Personal history of other (healed) physical injury and trauma; Z96.41 Presence of insulin pump (external) (internal); Z20.822 Contact with and (suspected) exposure to COVID-19
CPT/HCPCS: 36415; 36600; 70450; 71045; 72125; 74018; 74178; 80048; 80053; 81001; 81003; 82550; 82805; 82948; 83036; 83605; 83735; 84100; 84439; 84443; 84480; 85018; 85025; 85027; 85610; 85730; 86140; 87040; 87086; 87637; 93005; 96361; 96365; 96366; 97110; 97161; 97165; 97530; 97535; 99285; A9270; G0378; J0696; J1815; J2405; J7030; Q9967

== ENCOUNTER 2025-04-26 08:53 | Outpatient (CLI) | payer OTHER, SELFPAY ==
--- NOTE | ~2025-04-26 | NM_ITS ---
EXAMINATION: NM bone 3 phase DATE: 04/26/2025 14:03 INDICATION: Diabetic foot ulcer TECHNIQUE: 23.6 mCi Tc-99m HDP by intravenous route. Scintigrams of the bilateral feet were obtained in angiographic, blood pool, and delayed phases. COMPARISON: Radiograph dated 04/26/2025 FINDINGS: Matched focally increased uptake in the region of the right proximal and distal phalanges on the immediate blood pool and delayed scintigrams. The degree of increased activity on the delayed images appears greater and would be expected given the relatively mild osteoarthritis at the metatarsophalangeal and interphalangeal joints on the prior radiographs. There is no evident increased activity in this region on the angiographic phase images although the length of activity remains relatively low throughout which could be due to peripheral vascular disease as evidenced on the prior arterial ultrasound study performed on 02/24/2016. There does appear to be associated cortical erosion with early osteophytes along the medial base of the first distal phalanx on the prior radiograph which also raises concern for osteomyelitis. IMPRESSION: 1. Prominent increased uptake on the immediate blood pool and delayed images the region of the right first proximal distal phalanges without evident increased activity at this location on the angiographic images but with apparent cortical erosion and osteolysis at the medial base of the first distal phalanx on the prior radiographs which would be consistent with osteitis. The lack of increased activity in the angiographic images is atypical but may be an artifact of peripheral vascular disease. Reviewed, dictated and finalized at location A. IMPRESSION: 1. Prominent increased uptake on the immediate blood pool and delayed images t he region of the right first proximal distal phalanges without evident increase d activity at this location on the angiographic images but with apparent cortic al erosion and osteolysis at the medial base of the first distal phalanx on the prior radiographs which would be consistent with osteitis. The lack of increas ed activity in the angiographic images is atypical but may be an artifact of pe ripheral vascular disease.
--- NOTE | ~2025-04-26 | XR_ITS ---
EXAMINATION: XR foot RT min 3V DATE: 04/26/2025 09:21 INDICATION: Diabetic foot ulcer TECHNIQUE: Dorsoplantar, two oblique and lateral views of the right foot were obtained. COMPARISON: None. FINDINGS: Right fifth transmetatarsal amputation with smooth corticated osteotomy margins. Bone alignment is normal. No fracture. There is lucent soft tissue gas medial to the first interphalangeal joint with cortical erosion and mild osteophytes at the medial base of the first distal phalanx consistent with osteomyelitis. Equivocal additional cortical erosion along the medial margin of the head of the proximal phalanx. Mild polyarticular osteoarthritis at the first metatarsophalangeal and several tarsal metatarsal and interphalangeal joints. IMPRESSION: 1. Likely skin ulceration with some soft tissue gas medial to the first interphalangeal joint with likely osteomyelitis base of the first distal phalanx and potentially also the medial head of the first proximal phalanx. Reviewed, dictated and finalized at location A. IMPRESSION: 1. Likely skin ulceration with some soft tissue gas medial to the first interph alangeal joint with likely osteomyelitis base of the first distal phalanx and p otentially also the medial head of the first proximal phalanx.
--- OUTSIDE RECORDS SUMMARY | 2025-04-26 09:00 | XMS_ITS ---
Author Name Auto Generated, Auto Generated Organization [facility] Address [address] [place] [address] Phone [phone] Care Team Providers Care Desktop Publishing Associate Name Role Phone Lloyd Randall Unavailable Functional Status No Results Mental Status No Results Allergies and Intolerances No Known Allergies Problems Active Concerns * Orthostatic hypotension* Code: * Start Date: ThuFeb 20 00:00:00 EDT 2015 * End Date: * Text: * Type 1 diabetes mellitus with ketoacidosis without coma* Code: * Start Date: ThuDecember 30 00:00:00 EDT 2015 * End Date: * Text: * 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* Code: * Start Date: ThuFeb 20 00:00:00 EDT 2015 * End Date: * Text: * Acidosis* Code: * Start Date: ThuDecember 30 00:00:00 EDT 2015 * End Date: * Text: * Severe sepsis with septic shock* Code: * Start Date: ThuDecember 30 00:00:00 EDT 2015 * End Date: * Text: * Altered mental status, unspecified* Code: * Start Date: ThuFeb 20 00:00:00 EDT 2015 * End Date: * Text: * Syncope and collapse* Code: * Start Date: ThuFeb 20 00:00:00 EDT 2015 * End Date: * Text: * Critical illness polyneuropathy* Code: * Start Date: ThuDecember 30 00:00:00 EDT 2015 * End Date: * Text: * Critical illness myopathy* Code: * Start Date: ThuDecember 30 00:00:00 EDT 2015 * End Date: * Text: * Benign prostatic hyperplasia with lower urinary tract symptoms* Code: * Start Date: ThuFeb 20 00:00:00 EDT 2015 * End Date: * Text: * Traumatic ischemia of muscle, subsequent encounter* Code: * Start Date: ThuDecember 30 00:00:00 EDT 2015 * End Date: * Text: * Acute kidney failure, unspecified* Code: * Start Date: ThuFeb 20 00:00:00 EDT 2015 * End Date: * Text: * Retention of urine, unspecified* Code: * Start Date: ThuFeb 20 00:00:00 EDT 2015 * End Date: * Text: * Acute kidney failure with tubular necrosis* Code: * Start Date: ThuDecember 30 00:00:00 EDT 2015 * End Date: * Text: * Acidosis* Code: * Start Date: ThuFeb 20 00:00:00 EDT 2015 * End Date: * Text: * Acute respiratory failure, unspecified whether with hypoxia or hypercapnia* Code: * Start Date: ThuDecember 30 00:00:00 EDT 2015 * End Date: * Text: * Chronic diastolic (congestive) heart failure* Code: * Start Date: ThuFeb 20 00:00:00 EDT 2015 * End Date: * Text: * Ulcer of esophagus with bleeding* Code: * Start Date: ThuDecember 30 00:00:00 EDT 2015 * End Date: * Text: * Essential (primary) hypertension* Code: * Start Date: ThuFeb 20 00:00:00 EDT 2015 * End Date: * Text: * Essential (primary) hypertension* Code: * Start Date: ThuDecember 30 00:00:00 EDT 2015 * End Date: * Text: * Chronic obstructive pulmonary disease, unspecified* Code: * Start Date: ThuFeb 20 00:00:00 EDT 2015 * End Date: * Text: * Anemia, unspecified* Code: * Start Date: ThuDecember 30 00:00:00 EDT 2015 * End Date: * Text: * Pressure ulcer of right heel, unstageable* Code: * Start Date: ThuFeb 20 00:00:00 EDT 2015 * End Date: * Text: * Type 1 diabetes mellitus with other skin ulcer* Code: * Start Date: ThuDecember 30 00:00:00 EDT 2015 * End Date: * Text: * Pressure ulcer of left heel, unstageable* Code: * Start Date: ThuFeb 20 00:00:00 EDT 2015 * End Date: * Text: * Unspecified open wound, left lower leg, subsequent encounter* Code: * Start Date: ThuDecember 30 00:00:00 EDT 2015 * End Date: * Text: * Elevated white blood cell count, unspecified* Code: * Start Date: ThuFeb 20 00:00:00 EDT 2015 * End Date: * Text: * Unspecified open wound, left foot, subsequent encounter* Code: * Start Date: ThuDecember 30 00:00:00 EDT 2015 * End Date: * Text: * Hyperlipidemia, unspecified* Code: * Start Date: ThuFeb 20 00:00:00 EDT 2015 * End Date: * Text: * Unspecified open wound, right foot, subsequent encounter* Code: * Start Date: ThuDecember 30 00:00:00 EDT 2015 * End Date: * Text: * Pressure ulcer of right heel, unstageable* Code: * Start Date: ThuDecember 30 00:00:00 EDT 2015 * End Date: * Text: * Difficulty in walking, not elsewhere classified* Code: * Start Date: ThuFeb 20 00:00:00 EDT 2015 * End Date: * Text: * Pressure ulcer of left heel, unstageable* Code: * Start Date: ThuDecember 30 00:00:00 EDT 2015 * End Date: * Text: * Muscle weakness (generalized)* Code: * Start Date: ThuFeb 20 00:00:00 EDT 2015 * End Date: * Text: * Difficulty in walking, not elsewhere classified* Code: * Start Date: ThuDecember 30 00:00:00 EDT 2015 * End Date: * Text: * Weakness* Code: * Start Date: ThuDecember 30 00:00:00 EDT 2015 * End Date: * Text: * Other specified erythematous conditions* Code: * Start Date: ThuDecember 30 00:00:00 EDT 2015 * End Date: * Text: * Hyperlipidemia, unspecified* Code: * Start Date: ThuDecember 30 00:00:00 EDT 2015 * End Date: * Text: * Unspecified osteoarthritis, unspecified site* Code: * Start Date: ThuDecember 30 00:00:00 EDT 2015 * End Date: * Text: * Chronic obstructive pulmonary disease, unspecified* Code: * Start Date: ThuDecember 30 00:00:00 EDT 2016 * End Date: * Text: * Syncope and collapse* Code: * Start Date: ThuJanuary 13 00:00:00 EDT 2016 * End Date: * Text: * History of falling* Code: * Start Date: ThuJanuary 13 00:00:00 EDT 2015 * End Date: * Text: * Pressure ulcer of sacral region, stage 1* Code: * Start Date: ThuJanuary 13 00:00:00 EDT 2015 * End Date: * Text: Reason for Referral Past Medical History
--- OUTSIDE RECORDS SUMMARY | 2025-04-26 09:00 | XMS_ITS ---
Author Name Auto Generated, Auto Generated Organization [facility] Address [address] [place] [address] Phone [phone] Care Team Providers Care City Carrier Assistant Name Role Phone Lloyd Randall Unavailable Functional [...]
--- OUTSIDE RECORDS SUMMARY | 2025-04-26 09:02 | XMS_ITS | Clinical Summary ---
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 Role Phone Myron Enamorado MD Unavailable [phone] Joshua Hyatt MD Primary Care Provi masoud Sheela Rees RN Unavailable [phone] Allergies Active Allergy Reactions Criticality Noted Date Comments Meperidine Dizziness Low Medications blood-glucose transmitter (Dexcom G6 Transmitter) deviceIndication s:Type 1 diabetes mellitus with diabetic polyneuropathy (HCC) DIRECTED IN VITRO FOR CONTINUOUS GLUCOSE MONITORING (E10.65) 90 DAYS 022 Active insulin syringe-needle U-100 0.3 mL 31 gauge x 5/16 syringe 1 each daily Use incase of pump failure 024 Active glucagon 1 mg kit Use as directed for low blood sugar. 2 kit 11 024 Active atorvastatin (LIPITOR) 40 mg tablet Take 1 tablet (40 mg total) by mouth daily 100 tablet 1 024 Active blood-glucose meter,continuous misc Dexcom G6 custodial services manager use daily to monitor blood sugar 1 each 025 Active Dexcom G6 Sensor deviceIndication s:Type 1 diabetes mellitus with diabetic polyneuropathy (HCC) Apply and replace one sensor per week 4 each 5 025 Active donepeziL (ARICEPT) 10 mg tabletIndication s:Mild Alzheimer's dementia of other onset, without behavioral disturbance, psychotic disturbance, mood disturbance, or anxiety Take 1 tablet (10 mg total) by mouth nightly 90 tablet 1 025 2024 Active tamsulosin (FLOMAX) 0.4 mg extended release capsule Take 1 capsule (0.4 mg total) by mouth 2 (two) times a day Active pen needle, diabetic (Novofine 32) 32 gauge x 1/4 needleIndication s:Type 1 diabetes mellitus with hyperglycemia (HCC) Use to inject insulin 4 times daily 400 each 3 Active insulin lispro (HumaLOG, ADMELOG) 100 unit/mL vial for injection Inject 4-10 Units under the skin 3 (three) times a day before meals Per sliding scale Active insulin glargine 100 unit/mL vial for injection Inject 12 Units under the skin daily Active multivitamin with folic acid 400 mcg tablet Take 1 tablet by mouth daily Active buPROPion XL (WELLBUTRIN XL) 150 mg 24 hr tabletIndication s:Tobacco abuse Take 1 tablet (150 mg total) by mouth daily 90 tablet 025 2024 Active zfidofyp-aik-HO- lycopen-lutein (SENTRY SENIOR) 0.4-300-250 mg-mcg-mcg tablet 0 0 016 2024 Discontinued NovoLOG 100 unit/mL vial for injectionIndicat ions:Type 1 diabetes mellitus with diabetic polyneuropathy (HCC) Inject under the skin as directed With insulin pump 2024 Discontinued insulin degludec (TRESIBA) 100 unit/mL (3 mL) pen for injection Inject 0.15 mL (15 Units total) under the skin nightly 3 mL 024 2024 Discontinued(N o longer taking - Do not display on AVS) Droplet Pen Needle 32 gauge x 5/32 needle as directed 2024 Discontinued(A lternate therapy) HumaLOG 100 unit/mL pen for injection USE DIRECTED PER SLIDING SCALE AND INJECT 4 UNITS THREE TIMES A DAY WITH MEALS. MAX OF 30 UNITS DAILY. 025 2024 Discontinued(N o longer taking - Do not display on AVS) LANTUS 100 unit/mL (3 mL) pen for injection INJECT 12 UNIT SUBCUTANEOUSLY EVERY MORNING 025 2024 Discontinued(R eorder) LANTUS 100 unit/mL (3 mL) pen for injectionIndicat ions:Type 1 diabetes mellitus with hyperglycemia (HCC) Inject 14 Units under the skin every morning 15 mL 2 025 2024 Discontinued insulin aspart (NovoLOG) 100 unit/mL (3 mL) pen for injectionIndicat ions:Type 1 diabetes mellitus with hyperglycemia (HCC) Inject 4-10 Units under the skin 3 (three) times a day before meals 30 mL 3 025 2024 Discontinued insulin lispro (HumaLOG, ADMELOG) 100 unit/mL pen for injectionIndicat ions:Type 1 diabetes mellitus with hyperglycemia (HCC) Inject 4-10 Units under the skin 3 (three) times a day before meals 30 mL 3 025 2024 Discontinued Active Problems Problem Noted Date Diagnosed Date Hospital discharge follow-up 04/11/2025 Assessment & Plan (04/11/2025 1:49 PM CDT): Weakness 11/17/2024 Near syncope 11/17/2024 Tobacco abuse 10/05/2024 Assessment & Plan (04/11/2025 1:49 PM CDT): Orders: buPROPion XL (WELLBUTRIN XL) 150 mg 24 hr tablet; Take 1 tablet (150 mg total) by mouth daily 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 Mild microalbuminuria (44) 10/26/24; has improved from 52. Currently taking lisinopril 2.5mg daily Assessment & Plan (10/26/2024 11:44 AM MANAGER CONFIGURATION): Chronic problem. Mild microalbuminuria (52). Will recheck today as he's getting labs done for PCP already. Currently taking lisinopril 2.5mg daily Assessment & Plan (07/06/2024 10:20 AM MANAGER CONFIGURATION): Continue lisinopril Type 1 diabetes mellitus with hyperglycemia 12/30 Assessment & Plan (04/04/2025 9:12 AM CDT): Chronic problem. A1c worsened from 7.4% 02/06/25 to now 7.7%. reviewed Dexcom download with Mr Griffin. Discussed recent hospitalization & BG. Will be staying with son until he determines if he can dose insulin/be independent in diabetes care. Dexcom readings shared with son & he gets alerts. Current medications: Lantus 12 units every morning Novolog 4 units every meal with CR 1:15, sliding scale 1:50>150 (typically 4-7 units/meal). UTD on DM eye exam (02/27/25 mild NPDR [facility]) UTD on labs. Discussed with Mirza Griffin: [...] skin breakdown and infection. Assessment & Plan (10/26/2024 11:45 AM MANAGER CONFIGURATION): Chronic problem. A1c near goal; improved slightly [...] infection. Assessment & Plan (07/07/2024 11:06 AM MANAGER CONFIGURATION): Stable. Follows with endocrinology. Assessment & Plan (07/06/2024 10:20 AM MANAGER CONFIGURATION): Chronic, uncontrolled Hemoglobin A1c 7.7%, not at [...] diabetes mellitus 0 11/27/2023 Assessment & Plan (04/04/2025 8:24 AM CDT): Chronic problem. Controlled on current Atorvastatin 40mg. Last lipid panel: 02/07/25 LDL=88, TG=66. Assessment & Plan (10/26/2024 11:43 AM MANAGER CONFIGURATION): Chronic problem. Controlled on current Atorvastatin 40mg. Last lipid panel: 03/01/24 LDL=58, TG=55. Assessment & Plan (07/06/2024 10:20 AM MANAGER CONFIGURATION): Continue statin therapy Assessment & Plan (04/13/2024 [...] peripheral artery disease 08/17/2023 Assessment & Plan (04/11/2025 1:49 PM CDT): Assessment & Plan (03/01/2024 1:13 PM CDT): [...] cessation Assessment & Plan (08/17/2023 6:15 PM MANAGER CONFIGURATION): Chronic. Needs improvement. Wants to change patient resource specialist to [facility] specialists. Referral provided. Encouraged to continue use of insulin pump, C GM. He will continue working with his current patient resource specialist until he can see the [facility] patient resource specialist. Foot and eye care discussed History of [...] 3-10 minutes spent on counseling. [Modifier 25; 34921 3-10 min; 07990 > 10 min] Mild dementia without behavi oral disturbance, psychotic disturbance, mood disturbance, or anxiety, unspecified dementia type 05/30/2021 Assessment & Plan (04/11/2025 1:49 PM CDT): Orders: Ambulatory referral to Home Health; Future Assessment & Plan (03/01/2024 1:13 PM CDT): Chronic. Memory stable. Continue donepezil Assessment & Plan (11/27/2023 3:44 PM CDT): Chronic. Memory has been stable. Continue donepezil. We will need to monitor Assessment & Plan (08/17/2023 6:13 PM MANAGER CONFIGURATION): Mild per record. On donepezil. May have [...] Monitor Assessment & Plan (08/17/2023 6:14 PM MANAGER CONFIGURATION): Prior amputation for combination of diabetic ulcer/ischemia. [...] discussed Assessment & Plan (08/17/2023 6:13 PM MANAGER CONFIGURATION): Chronic. Denies chest pain. Continue risk factor modification with ASA, high-intensity statin, blood pressure control. LDL goal less than 70. Currently does not follow with Cardiology History of heart artery stent 09/20/2018 Assessment & Plan (08/17/2023 6:13 PM MANAGER CONFIGURATION): Last stent was a few years ago. No longer sees cardiology. Continue risk factor modification Type 1 diabetes mellitus with diabetic polyneuro eugene 09/20/2018 Assessment & Plan (04/04/2025 9:07 AM CDT): Chronic problem. Reviewed foot care; needs to lotion daily. Aware to check feet nightly, not to go barefoot. Assessment & Plan (03/01/2024 1:13 PM CDT): [...] changes. Assessment & Plan (08/17/2023 6:14 PM MANAGER CONFIGURATION): Chronic. Has a significant amount of neuropathy affecting the feet. Sensation absent in the toes and ball of the feet to monofilament. History of prior right 5th toe amputation. Due to foot findings on examination in the setting of neuropathy and known peripheral arterial disease we will send him to Podiatry for consultation Orthostatic hypotension 02/21/2016 Assessment & Plan (12/05/2024 4:15 PM CDT): Altered mental status, unspecified 02/21/2016 Benign prostatic hyperplasia with lower urinary tract symptoms 02/21/2016 Chronic diastolic (congestive) heart failure Elevated white blood cell count, unspecified Muscle weakness (generalized) 02/21/2016 Type 1 diabetes mellitus wit h diabetic autonomic (poly)neuropathy 02/21/2016 Retention of urine, unspecified 02/21/2016 Syncope and collapse 01/14/2016 Pressure ulcer of sacral region, stage 1 016 Acidosis 12/31/2015 Acute kidney failure with tubular necrosis 12/30 Anemia, unspecified 12/31/2015 Chronic obstructive pulmonary disease, unspecifi ed 12/31/2015 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 Difficulty in walking, not elsewhere classified 12/31/2015 Assessment & Plan (04/11/2025 1:49 PM CDT): Orders: Ambulatory referral to Home Health; Future Essential (primary) hypertension 12/31/2015 Hyperlipidemia, unspecified 12/31/2015 Type 1 diabetes mellitus with ketoacidosis witho ut coma 12/31/2015 Traumatic ischemia of muscle 12/31/2015 Unspecified open wound, right foot, subsequent e ncounter 12/31/2015 Assessment & Plan (04/11/2025 1:49 PM CDT): Orders: Ambulatory referral to Home Health; Future Unspecified open wound, left lower leg, subsequent encounter 12/31/2015 Ulcer of esophagus with bleeding 12/31/2015 Other specified erythematous conditions 12/31/19 16 Diabetes mellitus type I 01/14/2014 Overview (08/17/2023): DMII WO CMP UNCNTRLD Resolved Problems Problem Noted Date Diagnosed Date Resolved Date Insulin pump status 10/26/2024 04/11/20 25 Assessment & Plan (04/04/2025 9:12 AM CDT): Not wearing any pump at this time d/t safety concerns. Assessment & Plan (10/26/2024 11:44 AM MANAGER CONFIGURATION): No pump setting changes today. Discussed bolusing more with HS snack. 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 He will [...] state 07/23/2016 08/17/2023 Overview (12/05/2016): Confusional state Acute respiratory failure 12/31/2015 Unspecified osteoarthritis, unspecified site 6 04/11/2025 Severe sepsis with septic shock 12/31/2015 04/11/2025 Encounters Date Type Department Care Team Description 04/19/2025 Telephone [facility] Primary Care at [address] [phone] Joshua Hyatt MD Medical Question/Miscellaneou s 04/13/2025 Telephone [facility] Primary Care at [address] [phone] Joshua Hyatt MD 04/13/2025 Telephone [facility] Primary Care at [address] [phone] Joshua Hyatt MD 04/13/2025 Telephone [facility] Primary Care at [address] [phone] Joshua Hyatt MD 04/11/2025 1:30 PM CDT Office Visit [facility] Primary Care at [address] [phone] Joshua Hyatt MD Hospital discharge follow-up (Primary Dx); Unspecified open wound, right foot, subsequent encounter; Diabetes mellitus type 1 with peripheral artery disease (HCC); Mild dementia without behavioral disturbance, psychotic disturbance, mood disturbance, or anxiety, unspecified dementia type (HCC); Difficulty in walking, not elsewhere classified; Tobacco abuse; Nicotine dependence, cigarettes, uncomplicated 04/11/2025 Telephone [facility] Medical [facility] Primary Care at [address] [place] [phone] Joshua Hyatt MD Medical Question/Miscellaneou s 04/11/2025 Telephone [facility] Home Care Services [address] [place] [address] [address] [place] [phone] Riya Tyler 04/10/2025 Telephone [facility] Medical [facility] Primary Care at [address] [place] [phone] Joshua Hyatt MD Additional Services Or Orders 04/07/2025 Telephone [facility] Primary Care at [address] [phone] Joshua Hyatt MD 04/05/2025 12:52 PM CDT - 04/05/2025 4:57 PM CDT Emergency [facility] Emergency Department [address] [place] [phone] Mac Brumfield MD Orthostasis (Primary Dx); Hyperglycemia Discharge Disposition: Discharge to home or self care 04/04/2025 8:30 AM CDT Office Visit [facility] Diabetes and Endocrinology [address] [place] [phone] Bekah Balderas NP Type 1 diabetes mellitus with hyperglycemia (HCC) (Primary Dx); Hyperlipidemia due to type 1 diabetes mellitus (HCC); Microalbuminuria due to type 1 diabetes mellitus (HCC); Insulin pump status; Type 1 diabetes mellitus with diabetic polyneuropathy (HCC) 04/04/2025 Telephone [facility] Endocr[facility] [address] [place] [phone] Bekah Balderas NP Request for alternative Rx (Insurance prefers Humalog) 04/04/2025 Imaging Exam [facility] Medical [facility] Primary Care at [address] [place] [phone] Marisa Gomez MA 04/03/2025 Telephone [facility] Primary Care at [address] [phone] Joshua Hyatt MD Referral Request 04/03/2025 Telephone [facility] Primary Care at [address] [phone] Joshua Hyatt MD Medical Question/Miscellaneou s 03/30/2025 Telephone [facility] Primary Care at [address] [phone] Joshua Hyatt MD KIM Questions 03/24/2025 Telephone [facility] [address] [phone] Corey Restrepo MD Pump Settings 03/23/2025 Orders Only [facility] Primary Care at [address] [phone] Laurie Painting MD 03/07/2025 Orders Only [facility] Diabetes and Endocrinology [address] [place] [phone] Laurie Painting MD 02/09/2025 Results Follow-Up [facility] [address] [phone] Corey Restrepo MD Glucose, fasting, Lipid panel, C-peptide 02/07/2025 9:45 AM CDT Lab [facility] Outpatient Lab at [address] [phone] 02/07/2025 9:38 AM CDT - 02/07/2025 11:59 PM CDT Hospital Encounter [address] [address] Type 1 diabetes mellitus with hyperglycemia (HCC); Hyperlipidemia due to type 1 diabetes mellitus (HCC) Discharge Disposition: Discharge to home or self care 02/07/2025 Telephone [facility] [address] [place] [phone] Corey Restrepo MD 02/06/2025 2:00 PM CDT Office Visit [facility] Endocr[facility] [address] [place] [phone] Corey Restrepo MD Type 1 diabetes mellitus with hyperglycemia (HCC) (Primary Dx); Hyperlipidemia due to type 1 diabetes mellitus (HCC); Microalbuminuria due to type 1 diabetes mellitus (HCC); Insulin pump status 02/06/2025 Telephone [facility] [address] [phone] Corey Restrepo MD 02/03/2025 Telephone [facility] Primary Care at [address] [phone] Joshua Hyatt MD 02/02/2025 Telephone [facility] [address] [phone] Corey Restrepo MD 02/02/2025 Telephone [facility] Medical [facility] Primary Care at [address] [phone] Joshua Hyatt MD Referral Request from Last 3 Months Immunizations Immunization Administration Dates Next Due Influenza, Quadrivalent, Dian l Culture-based MDCK, Preservative Free, Antibiotic Free, Intramuscular 07/01/2022 Influenza, Quadrivalent, Hig h Dose, Preservative Free, Intrr 06/08/2023 Influenza, Quadrivalent, Spl it, Preservative Free, Intramuscular 06/16/2016 Influenza, Trivalent, IM (MDV) 06/29/2022,2018,05/10/2018 Influenza, Unspecified 05/09/2024,06/08/2023 [employer] Sars-Cov-2 Bivalent V accination (12+ YRS) 05/09/2024 Pneumococcal Conjugate Pcv20 03/01/2024 Pneumococcal Polysaccharide PPV23 06/16/2016 ZOSTER Recombinant 01/03/2023,07/01/2022 Surgical History Surgery Date Site/Laterality Comments CARDIAC CATHETERIZATION 08/31/2015 - 08/30/2016 left heart cath with PCI FEMORAL ARTERY STENT 11/29/2020 - 12/28/2020 Bilateral Aortogram c B LE RO R SFA 4.5x15 mm Resolute Topher stent placement R AK PA 4.5x22 Resolute Polebridge stent placement TOE AMPUTATION 02/28/2021 - 03/30/2021 Right 5th toe for DM ulcer Medical History Medical History Date Comments Hyperlipidemia Hyperlipidemia Type 1 diabetes mellitus Diabete s Hx Other Medical Orthostatic hyp otension Diabetic neuropathy (HCC) Neurop athy Hx Other Medical Hx of syncope Pressure ulcer, heel in 2020. re covered Amputation of fifth toe of right foot Peripheral vascular disease Essential (primary) hypertension 12/31/2015 Family History Medical History Relation Name Comments [...] Date Smoking Tobacco: Every Day Cigarettes 1 46.7 Started: 1976 Smokeless Tobacco: Never Tobacco Cessation:Ready to Q uit: Not Asked; Counseling Given: Not Answered Alcohol Use Standard Drinks/Week Comments No 0 (1 standard drink = 0.6 oz pur e alcohol) [facility] Utilities Answer Date Recorded In the past 12 months has [employer], gas, oil, or water [employer] threatened to shut off services in your home? No 04/06/2025 Social Connection and Isolation Panel Answer Date Recorded In a typical week, how many times do you talk on the phone with family, friends, or neighbors? More than three times a week 04/06/2025 How often do you get togethe r with friends or relatives? Three times a week 04/06/2025 How often do you attend chur ch or catholic services? Never 04/06/2025 Do you belong to any clubs o r organizations such as worship groups, unions, fraternal or athletic groups, or school groups? No 04/06/2025 How often do you attend meet ings of the clubs or organizations you belong to? Never 04/06/2025 Are you , , di vorced, , never , or living with a partner? 04/06/2025 AUDIT-C Answer Date Recorded Q1: How often do you have a drink containing alcohol? Never 03/01/2024 Q2: How many drinks containi ng alcohol do you have on a typical day when you are drinking? Patient does not drink Q3: How often do you have si x or more drinks on one occasion? Never 03/01/2024 Overall Financial Resource Strain (CARDIA) Answe r Date Recorded How hard is it for you to pa y for the very basics like food, housing, medical care, and heating? Not hard at all 04/06/2025 PHQ-2 Answer Date Recorded PHQ-2 Total Score (If total score is 3 or more points, staff should administer the PHQ-9) 0 10/05/2024 Hunger Vital Sign Answer Date Recorded Within the past 12 months, y ou worried that your food would run out before you got the money to buy more. Never true 04/06/20 25 Within the past 12 months, t he food you bought just didn't last and you didn't have money to get more. Never true 04/06/2025 PRAPARE - Transportation Answer Date Re corded In the past 12 months, has l ack of transportation kept you from medical appointments or from getting medications? No 02/2025 In the past 12 months, has l ack of transportation kept you from meetings, work, or from getting things needed for daily living? No 04/06/2025 Housing Stability Vital Sign Answer Donte e Recorded In the last 12 months, was t here a time when you were not able to pay the mortgage or rent on time? No 04/06/2025 In the past 12 months, how m any times have you moved where you were living? 0 04/06/2025 At any time in the past 12 m [facility], were you homeless or living in a mcc (including now)? No 04/06/2025 Personal Safety Answer Date Recorded Have you ever been in or are you currently in a harmful physical or emotional relationship or is someone making you feel afraid or unsafe? Denies 04/05/2025 Sex and Gender Information Value Date Recorded Sex Assigned at Not on file Legal Sex Male 8:13 AM MANAGER CONFIGURATION Gender Identity Not on file Sexual Orientation Not on file Obstetrics History Last Filed Vital Signs Vital Sign Reading Time Taken Comments Blood Pressure 120/58 04/11/2025 1:23 PM CDT Pulse 76 04/11/2025 1:23 PM CDT Temperature 36.7 C (98 F) 04/11/2025 1:23 PM CDT Respiratory Rate 17 04/11/2025 1:23 PM CDT Oxygen Saturation 96% 04/11/2025 1:23 PM CDT Inhaled Oxygen Concentration - - Weight 59.9 kg (132 lb) 04/11/2025 1:23 PM CDT Height 170.2 cm (5' 7.01) 04/11/2025 1:23 PM CD T Body Mass Index 20.67 04/11/2025 1:23 PM CDT Plan of Treatment Health Maintenance Due Date Last Done Comments DTaP/Tdap/Td Vaccine (1 - Tdap) 1961 Lung Cancer Screening 2002 Well Visit 65+ 05/27/2023 05/27/2022, 05/30/2021 Covid-19 Vaccine (2023-2 5 season) 2024 05/09/2024, 06/08/2023, 05/27/2021, Additional history exists TSH Level 03/01/2025 03/01/2024, 05/01, 05/11/2023 Influenza Vaccine (#1) 2025 , 06/08/2023, 06/08/2023, Additional history exists Depression Screening 10/05/2025 10/05/2024, 03/01/2024, 08/17/2023 Hemoglobin A1C 10/05/2025 04/04/2025, 05/2025, 10/26/2024, Additional history exists Albumin Creatinine Ratio, Urine 10/26/2025 10/26/2024, 03/01/2024, 05/11/2023, Additional history exists Lipid Panel 02/07/2026 02/07/2025, 10/2023, 05/11/2023, Additional history exists Foot Exam 04/04/2026 04/04/2025, 11/2023, 08/17/2023 eGFR 04/05/2026 04/05/2025, 0801/2025, 11/10/2024, Additional history exists Fall Risk Assessment 04/11/2026 04/11/2025, 08/17/20 23 Dilated Eye Exam 02/27/2027 02/27/2025, , 01/05/2023 Colon Cancer Screening-Colonoscopy 10/28/2033 10/29/2023 Zoster Vaccine Completed 01/03/2023, 07/01/2022 Hepatitis C Screening Completed 03/01/2024 Pneumococcal vaccine 65+ Completed 03/01/2024, 05/31 Abdominal Aortic Aneurysm (A AA) Screen Completed 10/27/2024 Hepatitis B Screening Discontinued Goals Goal Patient Goal Type Associated Problems Recent Progress Patient-Stated? Author KIM General Goal - Patient is knowledgeable about condition when worsening and how to respond ACO Care Management Sheela Castillo, RN Note: Problem: Knowledge deficit related to signs and symptoms of worsening condition Interventions: - Assess patient's level of understanding related to their condition(s), specific medications and self-management of their chronic conditions. - Send educational materials to patient related to their chronic condition, including signs and symptoms, self-management actions, and serious symptoms that require urgent medical intervention. - Assist patient/provider in developing an action plan for symptom management. - Review with patient weekly: s/s worsening condition, self-management actions to take, when to call CM or provider. Procedures Procedure Name Priority Date/Time Associated Diagnosis Comments SEPSIS LACTATE WITH REFLEX Timed 04/05/2025 4:00 PM CDT TROPONIN T HIGH-SENSITIVITY 2-HOUR Timed 04/05/2025 3:31 PM CDT URINALYSIS, MICROSCOPIC ONLY STAT 04/05/2025 2:43 PM CDT URINALYSIS AND REFLEX TO MICROSCOPIC AND CULTURE STAT 04/05/2025 2:43 PM CDT ADD ON LAB TEST Add-On 04/05/2025 1:21 PM CDT XR CHEST 1 VIEW ED 04/05/2025 1:19 PM CDT TROPONIN T HIGH-SENSITIVITY SERIES (BASELINE, 2HR, 4HR, 6HR) STAT 04/05/2025 12:52 PM CDT EGFR STAT 04/05/2025 12:52 PM CDT COMPREHENSIVE METABOLIC PANEL STAT 04/05/2025 12:52 PM CDT EGFR STAT 04/05/2025 12:15 PM CDT DIFFERENTIAL AUTO STAT 04/05/2025 12:15 PM CDT SEPSIS LACTATE WITH REFLEX STAT 04/05/2025 12:15 PM CDT CBC WITH AUTO DIFFERENTIAL STAT 04/05/2025 12:15 PM CDT BETA-HYDROXYBUTYRATE STAT 04/05/2025 12:15 PM CDT BLOOD GAS, VENOUS STAT 04/05/2025 12:15 PM CDT COMPREHENSIVE METABOLIC PANEL STAT 04/05/2025 12:15 PM CDT POCT GLUCOSE DEVICE Routine 04/05/2025 11:25 AM CDT ECG 12-LEAD STAT 04/05/2025 11:14 AM CDT POCT GLUCOSE Routine 04/04/2025 8:23 AM CDT Type 1 diabetes mellitus with hyperglycemia (HCC) POCT HEMOGLOBIN A1C Routine 04/04/2025 8 :23 AM CDT Type 1 diabetes mellitus with hyperglycemia (HCC) XR CHEST 1 VIEW Schedule Routine, Read Routine (OP Routine) 03/22/2025 2:14 PM CDT HEAD COMPUTED TOMOGRAPHY (CT) WITHOUT CONTRAST Schedule Routine, Read Routine (OP Routine) 03/22/2025 CT CERVICAL SPINE WO CONTRAST Schedule Routine, Read Routine (OP Routine) 03/22/2025 DIABETES EYE EXAM Routine 02/27/2025 7:32 AM [...] Type 1 diabetes mellitus with hyperglycemia (HCC) ABDOMINAL AORTIC ANEURYSM SCREENING Routine 10/27/2024 11:48 AM MANAGER CONFIGURATION ALBUMIN CREATININE RATIO, URINE Routine 10/26/2024 11:47 AM MANAGER CONFIGURATION Type 1 diabetes mellitus with hyperglycemia (HCC) HEPATITIS C ANTIBODY Routine 03/01/2024 10:38 AM CDT Encounter for hepatitis C screening test for low risk patient THYROID FUNCTION CASCADE Routine 03/01/2024 10:38 AM CDT Type 1 diabetes mellitus with diabetic polyneuropathy (HCC) Diabetes mellitus type 1 with peripheral artery disease (HCC) Atherosclerosis of squaxin coronary artery of squaxin heart without angina pectoris COLONOSCOPY Routine 10/29/2023 from Last 3 Months or Most Recently Relevant to Health Maintenance Results * Sepsis Lactate w/ Reflex (04/05/2025 4:00 PM CDT) Pathologist [facility] Sepsis Lactate 1.9 0.7 - 2.0 mmol/L Blood 04/05/2025 4:00 PM CDT 04/05/2025 4:04 PM CDT Mac Brumfield MD LAB BLOOD ORDERABLES Fi nal Result Performing Organization Address [facility] de Phone Number [facility] [address] Department [place] [address] * (ABNORMAL) Troponin T high-sensitivity 2-hour (04/05/2025 3:31 PM CDT) [facility] Trop T hs 30(H) <=22 ng/L Comment: Interpretive Data For further hscTnT resources including the diagnostic algorithm and an aid in interpretation, copy and paste this link: https://nrl.testcatalog.org/show/hsTrop Current Interpretive Data last revised 2020. Trop T hs delta 7 ng/L [facility] Trop T hs interp Equivocal [facility] Blood 04/05/2025 3:31 PM CDT 04/05/2025 3:42 PM CDT Mac Brumfield MD LAB BLOOD ORDERABLES Fi nal Result Performing Organization Address [facility] de Phone Number [facility] [address] Department [place] [address] * (ABNORMAL) Urinalysis reflex to microscopic and culture Urine (04/05/2025 2:43 PM CDT) [facility] Color, ur Yellow Yellow Clarity, ur Clear Clear [facility] Specific gravity, ur 1.009 1.003 - 1.030 [facility] pH, urine 6.0 [facility] Comment: Interpretive Data U rine pH is affected by diet, medications, systemic acid-base disturbances, and renal tubular function. pH may affect urinary stone formation. For example, urine pH below 6.0 may help reduce the tendency for calcium phosphate stones and pH greater than 6.0 may reduce the tendency for uric acid stone formation. Source: [facility] Current Interpretive Data was last revised on 2017 Protein, ur ql Negative Negative [facility] Glucose, ur ql 2+(A) Negative [facility] Ketones, ur Negative Negative [facility] Bilirubin, ur Negative Negative [facility] Blood, ur 2+(A) Negative [facility] Urobilinogen, ur <2.0 <2.0 mg/dL [facility] Nitrite, ur Negative Negative [facility] Leukocyte esterase, ur Negative Negative [facility] UA reflex comment Reflex to microscopic UA will be performed. [facility] Urine 04/05/2025 2:43 PM CDT 04/05/2025 2:43 PM CDT Narrative [facility] - 04/05/2025 3:07 PM CDT If patient unable to urinate, straight cath us Mac Brumfield MD LAB MICROBIOLOGY - GENE RAL ORDERABLES Final Result Performing Organization Address City/[facility]/ZIP Co de Phone Number [facility] [address] Department of Laboratories [place], [place] [id number] * (ABNORMAL) Urinalysis, microscopic only (04/05/2025 2:43 PM CDT) WBC, ur 0-5 0 - 5 /HPF RBC, ur 6-10(A) 0 - 2 /HPF [facility] Epithelial cells, squamous, ur 1-5 0 - 5 /HPF [facility] Bacteria, ur Trace(A) [facility] Culture Reflex Comment Reflex conditions for urine culture (WBC >10) not met. [facility] Urine 04/05/2025 2:43 PM CDT 04/05/2025 3:02 PM CDT us Mac Brumfield MD LAB URINE ORDERABLES Ed ited Result - Final Performing Organization Address City/[facility]/ZIP Co de Phone Number [facility] [address] Department of Laboratories [place], [place] [id number] * Troponin T HS (series) - Add on lab test (04/05/2025 1:21 PM CDT) Acceptable Yes Blood 04/05/2025 1:21 PM CDT 04/05/2025 1:34 PM CDT Narrative ANN [facility] - 04/05/2025 1:34 PM CDT Name of Test->Troponin T HS (series) us Mac Brumfield MD LAB BLOOD ORDERABLES Fi nal Result [facility] [address] Department [place] [address] * XR Chest 1 Vw Portable (If patient hemodynamically UNstable or UNable to ambulate) (04/05/2025 1:19PM CDT) Anatomical Region Laterality Modality Body, Chest N/A Computed Radiogr aphy 04/05/2025 3:13 PM CDT Impressions 04/05/2025 6:33 PM CDT No comparison radiograph available. Pulmonary emphysema. The lungs are clear without pleural effusion or pneumothorax. There are calcified bilateral hilar lymph nodes compatible with sequela of old granulomatous disease. Heart size is normal. Dictated by: Morro Sol M.D. The radiology attending physician has personally reviewed this study, and had reviewed and/or edited this written report and agrees with it. Electronically signed by: Kaden Dykes M.D. Narrative 04/05/2025 6:33 PM CDT EXAM: XR CHEST 1 VIEW Procedure Note Kaden Dykes MD - 04/05/2025 EXAM: XR CHEST 1 VIEW IMPRESSION: No comparison radiograph available. Pulmonary emphysema. The lungs are clear without pleural effusion or pneumothorax. There are calcified bilateral hilar lymph nodes compatible with sequela of old granulomatous disease. Heart size is normal. Dictated by: Morro Sol M.D. The radiology attending physician has personally reviewed this study, and had reviewed and/or edited this written report and agrees with it. Electronically signed by: Kaden Keven Dykes, M.D. us Mac Brumfield MD IMG XR PROCEDURES Final Result * (ABNORMAL) Troponin T high-sensitivity series (baseline, 2hr, 4hr, 6hr) (04/05/2025 12:52 PM CDT) Trop T hs 23(H) <=22 ng/L Comment: Interpretive Data For further hscTnT resources including the diagnostic algorithm and an aid in interpretation, copy and paste this link: https://nrl.testcatalog.org/show/hsTrop Current Interpretive Data last revised 2020. Blood 04/05/2025 12:5 2 PM CDT 04/05/2025 12:52 PM CDT us Mac Brumfield MD LAB BLOOD ORDERABLES Fi nal Result ANN [facility] [address] Department [place] [address] * eGFR (04/05/2025 12:52 PM CDT) eGFR 79 >=60 mL/min/1. 73 m2 Comment: Interpretive Data [...] of Race in Diagnosing Kidney Disease, JASN 202). The CKD-EPI equation should not be used for patients with unstable renal function and has not been validated in children and those over 70. Current interpretive data was last reviewed 2021. Blood 04/05/2025 12:5 2 PM CDT 04/05/2025 12:52 PM CDT us Mac Brumfield MD LAB BLOOD ORDERABLES Fi nal Result [facility] [address] Department [place] [address] * (ABNORMAL) Comprehensive metabolic panel (04/05/2025 12:52 PM CDT) Sodium 133(L) 135 - 145 mmol/L Potassium, pl 4.8 3.3 - 4.9 mmol/L [facility] Chloride 98 97 - 110 mmol/L [facility] CO2 22 22 - 32 mmol/L [facility] Anion gap 13 2 - 15 mmol/L [facility] BUN 20 6 - 25 mg/dL [facility] Creatinine 1.01 0.80 - 1.30 mg/dL [facility] Glucose 250(H) 70 - 199 mg/dL [facility] Comment: Interpretive Data Fasting glucose >/= 126 mg/dl is diagnostic for diabetes. Fasting is defined as no caloric intake for at least 8 hours. Fasting glucose between 100 mg/dl to 125 mg/dl is diagnostic of prediabetes. In a patient with classic symptoms of hyperglycemia or hyperglycemic crisis, a random glucose >/= 200 mg/dl is diagnostic for diabetes. In the absence of unequivocal hyperglycemia, results should be confirmed by repeat testing. The classification and Diagnosis of Diabetes Diabetes Care 2021; 46: S19-S40. Current interpretive data was last revised 2022. Calcium 8.6 8.5 - 10.3 mg/dL [facility] Bilirubin, total 0.3 0.1 - 1.2 mg/dL [facility] Protein, pl 6.2(L) 6.5 - 8.5 g/dL [facility] Albumin 3.7 3.5 - 5.0 g/dL [facility] Alk phos 88 40 - 130 Units/L [facility] ALT 11 7 - 55 Units/L [facility] AST 27 10 - 50 Units/L [facility] Comment:Slightly Hemolyzed S pecimen Blood 04/05/2025 12:5 2 PM CDT 04/05/2025 12:52 PM CDT Mac Brumfield MD LAB BLOOD ORDERABLES Fi nal Result ANN [facility] [address] [facility] [place] [address] * (ABNORMAL) Sepsis Lactate w/ Reflex (04/05/2025 12:15 PM CDT) Sepsis Lactate 3.7(H) 0.7 - 2.0 mmol/L Blood 04/05/2025 12:1 5 PM CDT 04/05/2025 12:22 PM CDT Mac Brumfield MD LAB BLOOD ORDERABLES Fi nal Result Performing Organization Address [facility] Co de Phone Number ANN [facility] [address] [facility] [place] [address] * eGFR (04/05/2025 12:15 PM CDT) eGFR 80 >=60 mL/min/1. 73 m2 Comment: Interpretive Data [...] interpretive data was last reviewed 2021. Blood 04/05/2025 12:1 5 PM CDT 04/05/2025 12:25 PM CDT us Mac Brumfield MD LAB BLOOD ORDERABLES Fi nal Result [facility] [address] Department [place] [address] * (ABNORMAL) Differential, auto (04/05/2025 12:15 PM CDT) Neutrophil abs 9.08(H) 1.50 - 6.50 K/cumm Imm gran abs 0.04 0.00 - 0.10 K/cumm [facility] Lymphocyte abs 1.26 0.80 - 3.30 K/cumm [facility] Monocyte abs 0.67 0.20 - 0.80 K/cumm [facility] Eosinophil abs 0.08 0.00 - 0.50 K/cumm [facility] Basophil abs 0.09 0.00 - 0.10 K/cumm [facility] Neutrophil pct 80.9 % [facility] Comment: Interpretive Data Percent cell count reference ranges are not reported, since discordance with absolute values may lead to misinterpretation of CBC data. Current Interpretive Data was last revised on 2017. Imm gran pct 0.4 % [facility] Comment: Interpretive Data Percent cell count reference ranges are not reported, since discordance with absolute values may lead to misinterpretation of CBC data. Current Interpretive Data was last revised on 2017. Lymphocyte pct 11.2 % [facility] Comment: Interpretive Data Percent cell count reference ranges are not reported, since discordance with absolute values may lead to misinterpretation of CBC data. Current Interpretive Data was last revised on 2017. Monocyte pct 6.0 % [facility] Comment: Interpretive Data Percent cell count reference ranges are not reported, since discordance with absolute values may lead to misinterpretation of CBC data. Current Interpretive Data was last revised on 2017. Eosinophil pct 0.7 % [facility] Comment: Interpretive Data Percent cell count reference ranges are not reported, since discordance with absolute values may lead to misinterpretation of CBC data. Current Interpretive Data was last revised on 2017. Basophil pct 0.8 % [facility] Comment: Interpretive Data Percent cell count reference ranges are not reported, since discordance with absolute values may lead to misinterpretation of CBC data. Current Interpretive Data was last revised on 2017. Blood 04/05/2025 12:1 5 PM CDT 04/05/2025 12:25 PM CDT Mac Brumfield MD LAB BLOOD ORDERABLES Fi nal Result Performing Organization Address City/[facility]/ZIP Co de Phone Number [facility] [address] [facility] [employer] [place], [place] [phone] * Beta-hydroxybutyrate (04/05/2025 12:15 PM CDT) Pathologist [facility] Beta-Hydroxybut yrate 0.1 <=0.5 mmol/L Blood 04/05/2025 12:1 5 PM CDT 04/05/2025 12:25 PM CDT Mac Brumfield MD LAB BLOOD ORDERABLES Fi nal Result Performing Organization Address City/[facility] Co de Phone Number [facility] [address] [employer] [place], [place] [phone] * (ABNORMAL) CBC with auto differential (04/05/2025 12:15 PM CDT) Pathologist [facility] WBC 11.22(H) 3.80 - 9.90 K/cumm Hgb 11.7(L) 13.0 - 17.5 g/dL [facility] Hct 37.1(L) 38.9 - 50.3 % [facility] Plt 273 150 - 400 K/cumm [facility] MPV 10.5 9.1 - 12.3 fL [facility] RBC 4.03(L) 4.30 - 5.80 M/cumm [facility] MCV 92.1 81.3 - 96.4 fL [facility] MCH 29.0 27.1 - 33.3 pg [facility] MCHC 31.5(L) 32.3 - 35.7 g/dL [facility] RDW CV 14.6 11.1 - 14.9 % [facility] RDW SD 49.6(H) 35.7 - 48.1 fL [facility] NRBC abs 0.00 0.00 - 0.01 K/cumm [facility] Blood 04/05/2025 12:1 5 PM CDT 04/05/2025 12:25 PM CDT Mac Brumfield MD LAB BLOOD ORDERABLES Fi nal Result Performing Organization Address [facility] Co de Phone Number [facility] [address] Department [place] [address] * (ABNORMAL) Blood gas, venous (04/05/2025 12:15 PM CDT) pH, Venous 7.30(L) 7.32 - 7.43 PCO2, Venous 51(H) 40 - 50 mmHg [facility] PO2, Venous 56 mmHg [facility] Comment: Interpretive Data No Reference Range Established Current Interpretive Data was last revised on 2017. HCO3 Venous, Calculated 25 20 - 30 mmol/L [facility] BE, venous -2 mmol/L [facility] Comment: nterpretive Data No Reference Range Established Current Interpretive Data was last revised on 2017. Blood Venous blood specimen / Unknown 04/05/2025 12:15 PM CDT 04/05/2025 12:22 PM CDT Mac Brumfield MD LAB BLOOD ORDERABLES Fi nal Result Performing Organization Address City/[facility]/ZIP Co de Phone Number [facility] [address] Department [place] [address] * (ABNORMAL) Comprehensive metabolic panel (04/05/2025 12:15 PM CDT) Sodium 134(L) 135 - 145 mmol/L Potassium, pl 4.8 3.3 - 4.9 mmol/L [facility] Chloride 99 97 - 110 mmol/L [facility] CO2 22 22 - 32 mmol/L [facility] Anion gap 13 2 - 15 mmol/L [facility] BUN 20 6 - 25 mg/dL [facility] Creatinine 1.00 0.80 - 1.30 mg/dL [facility] Glucose 250(H) 70 - 199 mg/dL [facility] Comment: Interpretive Data Fasting glucose >/= 126 mg/dl is diagnostic for diabetes. Fasting is defined as no caloric intake for at least 8 hours. Fasting glucose between 100 mg/dl to 125 mg/dl is diagnostic of prediabetes. In a patient with classic symptoms of hyperglycemia or hyperglycemic crisis, a random glucose >/= 200 mg/dl is diagnostic for diabetes. In the absence of unequivocal hyperglycemia, results should be confirmed by repeat testing. The classification and Diagnosis of Diabetes Diabetes Care 202; 46: S19-S40. Current interpretive data was last revised 2022. Calcium 8.6 8.5 - 10.3 mg/dL [facility] Bilirubin, total 0.3 0.1 - 1.2 mg/dL [facility] Protein, pl 6.1(L) 6.5 - 8.5 g/dL [facility] Albumin 3.6 3.5 - 5.0 g/dL [facility] Alk phos 88 40 - 130 Units/L [facility] ALT 10 7 - 55 Units/L [facility] AST 27 10 - 50 Units/L [facility] Blood 04/05/2025 12:1 5 PM CDT 04/05/2025 12:25 PM CDT Mac Brumfield MD LAB BLOOD ORDERABLES Fi nal Result [facility] [address] Department [place] [address] * (ABNORMAL) POCT glucose (04/05/2025 11:25 AM CDT) [facility] Glucose, POC 332(H) 70 - 199 mg/dL Comment: For Glucose values <35 mg/dl when Hematocrit is >60 mg/dl,the test may not accurately detect significant hypoglycemia,and testing in the Laboratory should be considered if clinically indicated. Blood 04/05/2025 11:2 5 AM CDT 04/05/2025 11:25 AM CDT us Notinfile Unknown LAB POCT ORDERABLES - DEVICE F inal Result Performing Organization Address City/[facility]/ZIP Co de Phone Number ANN [facility] [address] Department [place] [address] * ECG 12 lead (04/05/2025 11:14 AM CDT) 04/05/2025 11:1 4 AM CDT Narrative [facility] - 04/05/2025 10:33 PM CDT Vent Rate: 79 bpm RR Interval: 755 msec CO Interval: 157 msec QRS Duration: 81 msec QT Interval: 367 msec QTC Interval: 402 msec P-R-T Murtaugh: 75 - 72 - 83 degrees IMPRESSION: SINUS RHYTHM NORMAL ECG Electronically Signed By: Kaden Read MD PhD us Mac Brumfield MD ECG ORDERABLES Final R esult Performing Organization Address [facility] Co de Phone Number [facility] [employer] [facility] * (ABNORMAL) POCT hemoglobin A1c (04/04/2025 8:23 AM CDT) Pathologist [facility] Hemoglobin A1C, POC 7.7(A) 4.0 - 5.6 % Capillary blood 04/04/2025 8 :23 AM CDT us Bekahceci Balderas NP POINT OF CARE TEST ORDERA BLES Final Result * (ABNORMAL) POCT glucose (04/04/2025 8:23 AM CDT) Glucose Blood, POC 366 Normal Fasting 70 - 100, Random <200 mg/dL Comment:PPG 1.5 Hrs Blood 04/04/2025 8:23 AM CDT us Bekahceci Balderas NP POINT OF CARE TEST ORDERA BLES Final Result * XR Chest 1 View (03/22/2025 2:14 PM CDT) Anatomical Region Laterality Modality Body, Chest N/A Radiographic Luz Maria ging 03/22/2025 2:14 PM CDT Historical Provider MD IMG XR PROCEDURES Final R esult * HEAD COMPUTED TOMOGRAPHY (CT) WITHOUT CONTRAST (03/22/2025) Anatomical Region Laterality Modality N/A Computed Tomogra phy 03/22/2025 [facility] Provider MD IMG CT PROCEDURES Final R esult * CT Cervical Spine WO Contrast (03/22/2025) Anatomical Region Laterality Modality Spine N/A Computed Tomogra phy 03/22/2025 [facility] Provider MD IMG CT PROCEDURES Final R esult * HM DIABETES EYE EXAM (02/27/2025 7:32 AM CDT) [facility] Provider MD HEALTH MAINTENANCE Final Result * (ABNORMAL) Diabetes Mellitus Type 1 Evaluation (02/07/2025 9:38 AM CDT) Pathologist [facility] Insulin ab 0.02 0.00 - 0.02 nmol/L [facility] Comment: ADDITIONAL INFORMATION This test was developed and its performance characteristics determined by [facility] in a manner consistent with CLIA requirements. This test has not been cleared or approved by the U.S. Food and Drug Administration. GAD65 ab ser 2.09(H) <=0.02 nmol/L ANN Comment: ADDITIONAL INFORMATION This test was developed and its performance characteristics determined by [facility] in a manner consistent with CLIA requirements. This test has not been cleared or approved by the U.S. Food and Drug Administration. IA-2 Ab 0.00 <=0.02 nmol/L [facility] Comment: ADDITIONAL INFORMATION This test was developed and its performance characteristics determined by [facility] in a manner consistent with CLIA requirements. This test has not been cleared or approved by the U.S. Food and Drug Administration. Diabetes, type 1, interpretation See Footnote [facility] Comment: This profile is consistent with a [...] This test has been modified from the alteration workroom supervisor's instructions. Its performance characteristics were determined by [facility] in a manner consistent with CLIA requirements. This test has not been cleared or approved by the U.S. Food and Drug Administration. Test Performed by: [place] [address] Batchmaker: Sylvie Rowland Ph.D.; CLIA# [id number] Blood 02/07/2025 9:38 AM CDT 02/07/2025 2:52 PM CDT Corey Sanchez MD LAB BLOOD ORDERABLE S Final Result Performing Organization Address [facility] Co de Phone Number ANN [address] [employer] [address] [facility] * (ABNORMAL) C-peptide (02/07/2025 9:38 AM CDT) C-peptide <0.02(L) 1.10 - 4.40 ng/mL Comment:Testing performed by : [facility], [address] [place]., [address] Blood 02/07/2025 9:38 AM CDT 02/07/2025 4:17 PM CDT us Corey Sanchez MD LAB BLOOD ORDERABLE S Final Result ANN [address] [place] [address] * Glucose, fasting (02/07/2025 9:38 AM CDT) Glucose, fasting 73 70 - 99 mg/dL Blood 02/07/2025 9:38 AM CDT 02/07/2025 2:52 PM CDT us Corey Sanchez MD LAB BLOOD ORDERABLE S Final Result [facility] [address] Department [place] [address] * Lipid panel (02/07/2025 9:38 AM CDT) [...] LAB BLOOD ORDERABLE S Final Result ANN [address] Department [place] [address] * (ABNORMAL) POCT hemoglobin A1c (02/06/2025 1:51 PM CDT) Hemoglobin A1C, POC 7.4(A) 4.0 - 5.6 % Blood 02/06/2025 1:51 PM CDT Corey Sanchez MD POINT OF CARE TEST ORDERABLES Final Result * POCT glucose (02/06/2025 1:50 PM CDT) Glucose Blood, POC 250 Normal Fasting 70 - 100, Random <200 mg/dL Blood 02/06/2025 1:50 PM CDT Corye Sanchez MD POINT OF CARE TEST ORDERABLES Final Result * ABDOMINAL AORTIC ANEURYSM SCREENING (10/27/2024 11:48 AM MANAGER CONFIGURATION) Historical Provider HEALTH MAINTENANCE Final Result * (ABNORMAL) Albumin Creatinine Ratio, Urine (10/26/2024 11:47 AM MANAGER CONFIGURATION) Pathologist [facility] Albumin Ur 20.9 mg/L Comment: Interpretive Data No reference range established. Current interpretive data was last revised 2019. Creatinine Ur 47.8 mg/dL ANN Comment: Interpretive Data No reference range established. Current interpretive data was last revised 2019. Albumin Creatinine Ratio, Ur 44(H) 1 - 29 mg/g [facility] Urine 10/26/2024 11:4 7 AM MANAGER CONFIGURATION 10/26/2024 3:12 PM MANAGER CONFIGURATION Bekah Balderas SHUFFLE BOARD OPERATOR LAB URINE ORDERABLES Lalitha l Result ANN [address] Department [place] [address] * Thyroid Function Dur[place] (03/01/2024 10:38 AM CDT) Pathologist [facility] TSH 1.34 0.30 - 4.20 mcIUnit/mL Blood 03/01/2024 10:3 8 AM CDT 03/01/2024 2:12 PM CDT Christiana Corona MD LAB BLOOD ORDERABLES F inal Result Performing Organization Address [facility] Co de Phone Number [facility] [address] Department [place] [address] * Hepatitis C antibody Blood (03/01/2024 10:38 AM CDT) Pathologist [facility] Hep C Ab Nonreactive Nonreactive Comment: Interpretive [...] ERAL ORDERABLES Final Result Performing Organization Address [facility] Co de Phone Number [facility] [address] [place] [address] * HM COLONOSCOPY (10/29/2023) Pathologist [facility] Scribed HM Colonoscopy Unknown Laurie Provider HEALTH MAINTENANCE Final Result from Last 3 Months or Most Recently Relevant to Health Maintenance Insurance [facility] Member Subscriber Plan / Payer (Ef fective 2021-Present) Name:Mirza Griffin Relation to Subscriber:Self Name:Mirza Griffin Payer ID:[id number] (NAIC) Type:MEDICARE RISK OTHER Address: [address] [place] [id number] Care Teams Turpentine Farmer Relationship Specialty Start Date End Date Joshua Hyatt MD [address] [facility] [address] [place] [address] PCP - General Family Practice 10/03/24 [place] [address] [address] [facility] [address] [place] [address] Referring Physician Endocrinology Diabetes & Metabolism 08/17/23 Sheela Rees, RN [address] [place] [address] [address] [place] [address] Launching Pad Mechanic 04/05/25
--- OUTSIDE RECORDS SUMMARY | 2025-04-26 09:02 | XMS_ITS | Encounter Summary ---
Author Organization [facility] Healthcare Address [address] [place] [address] Care Team Providers Care Knowledge Analyst Name Role Phone Myron Enamorado MD Unavailable [phone] Joshua Hyatt MD Primary Care Provi masoud Sheela Rees RN Unavailable [phone] Encounter Details Date Type Department Care Team (Late st Contact Info) Description 04/04/2025 Imaging Exam [facility] Medical Group Primary Care at [address] [place] [address] Marisa Gomez MA Social History Tobacco Use Types Packs/Day Years Used Date Smoking Tobacco: Every Day Cigarettes 1 46.7 Started: 1976 Smokeless Tobacco: Never Alcohol Use Standard Drinks/Week Comments No 0 (1 standard drink = 0.6 oz pur e alcohol) [facility] Utilities Answer Date Recorded In the past 12 months has [employer] gas, oil, or water [employer] threatened to shut off services in your [...] 04/06/2025 How often do you attend chur or restoration services? Never 04/06/2025 Do you belong to any clubs o r organizations such as scientology groups, unions, fraternal or athletic groups, or [...] any time in the past 12 m [facility], were you homeless or living in a correction (including now)? No 04/06/2025 Personal Safety Answer Date Recorded Have you ever been in or are you currently in a harmful physical or emotional relationship or is someone making you feel afraid or unsafe? 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 Author KIM General Goal - Patient is knowledgeable about condition when worsening and how to respond ACO Care Management No Sheela Rees, RN Note: Problem: Knowledge deficit related to [...] take, when to call CM or provider. documented as of this encounter Visit Diagnoses Not on filedocumented in this encounter Care Teams Knowledge Analyst Relationship Specialty Start Date End Date Joshua Hyatt MD [address] [facility] [address] [place] [address] PCP - General Family Practice 10/03/24 [place] [address] [address] [facility] [address] [place] [address] Referring Physician Endocrinology Diabetes & Metabolism 08/17/23 Sheela Rees, RN [address] [place] [address] [address] [place] [address] Thermodynamic Physicist 04/05/25 documented as of this encounter
--- OUTSIDE RECORDS SUMMARY | 2025-04-26 09:02 | XMS_ITS | Clinical Summary ---
Author Organization [facility] Address [address] [place] [address] Care Team Providers Care Aviation Electronic Warfare Operator Name Role Phone Unavailable Primary Care Provider Unavailabl e Source Comments [facility] [place],non-owned Affiliates and Associated Physician Practices is amultiple site organization consisting of ambulatory clinics and hospital sitesin [place], [place], [place] and [place]. This disclosure is being madepursuant to the Care Everywhere program and may not contain all information available regarding this patient. 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 Gender Identity Not on file Sexual Orientation [...] Most Recently Relevant to Health Maintenance Insurance [facility] SELF PAY NO INSURANCE Member Subscriber Plan / Payer (Ef fective for All Dates) Name:Gal Paul Member ID:Not on file Relation to Subscriber:Not on file Name:GAL PAUL Subscriber ID:Not on file Address: [address] [place] [address] Payer ID:Not on file Group ID:Not on file Type:Self Pay Address: [place], [place] [facility] SELF PAY NO INSURANCE Member Subscriber Plan / Payer (Ef fective for All Dates) Name:Gal Paul Member ID:Not on file Relation to Subscriber:Not on file Name:GAL PAUL Subscriber ID:Not on file Address: [address] [place] [address] Payer ID:Not on file Group ID:Not on file Type:Self Pay Address: [place], [place] [facility] SELF PAY NO INSURANCE Member Subscriber Plan / Payer (Ef fective for All Dates) Name:Gal Paul Member ID:Not on file Relation to Subscriber:Not on file Name:GAL PAUL Subscriber ID:Not on file Address: [place] [address] Payer ID:Not on file Group ID:Not on file Type:Self Pay Address: [place] [address]
--- OUTSIDE RECORDS SUMMARY | 2025-04-26 09:02 | XMS_ITS | Clinical Summary ---
Author Organization [facility] Address [address], [place] [address] Phone Care Team Providers Care Industrial Maintenance Millwright Name Role Phone Unavailable Primary Care Provider [...]
--- OUTSIDE RECORDS SUMMARY | 2025-04-26 09:02 | XMS_ITS | Patient Health Record ---
Author Organization [facility] Address [address] [place], [place] [address] Care Team Providers Care Grinding Supervisor Name Role Phone SHAI Dunn Unavailable [phone] Jeo Forte Unavailable Unavailable Reason For Referral No Information Medications Medication SIG (Take, Route, Frequency, Duration) Notes Start Date End Date Status aspirin 81 MG Delayed Release Oral Tablet [Carlos Aspirin] ORAL aspirin 81 MG Delayed Release Oral Tablet [Carlos Aspirin]Original Medicationaspirin 81 MG Delayed Release Oral Tablet [Carlos Aspirin] *Reorder from [employer] for eRx and Interaction Alerts* 11/28/2020 Active atorvastatin 40 MG Oral Tablet ORAL atorvastatin 40 MG Oral TabletOriginal Medicationatorvastatin 40 MG Oral Tablet *Reorder from [employer] for eRx and Interaction Alerts* 11/28/2020 Active thioctic acid 300 MG Oral Capsule ORAL thioctic acid 300 MG Oral CapsuleOriginal Medicationthioctic acid 300 MG Oral Capsule *Reorder from [employer] for eRx and Interaction Alerts* 11/28/2020 Active Plan Of Treatment No Information Insurance Providers Payer Name Payer Address Payer Phone Subscriber Number Group Number Insured Name Patient Relationship to Insured Coverage Start Date Coverage End Date [facility] [address] [address] [place] [id number] GAL COOLEY Self - patient is the insured
--- OUTSIDE RECORDS SUMMARY | 2025-04-26 09:02 | XMS_ITS | Encounter Summary ---
Author Organization [facility] Healthcare Address [address] [place] [address] Care Team Providers Care Health And Wellness Coach Name Role Phone Myron Enamorado MD Unavailable [phone] Joshua Trent MD Primary Care Provi [facility] Sheela Rees RN Unavailable [phone] Reason for Visit * Reason Onset Date Comments Additional Services Or Orders 04/10/2025 Encounter Details Date Type Department Care Team (Late st Contact Info) Description 04/10/2025 Telephone [facility] Medical Group Primary Care at [place] [address] [place] [address] [address] [place] [address] Joshua Trent MD [address] [place] [address] [address] [place] [address] Additional Services Or Orders Social History Tobacco Use Types Packs/Day Years Used Date Smoking Tobacco: Every Day Cigarettes 1 46.7 Started: 1978 Smokeless Tobacco: Never Alcohol Use Standard Drinks/Week Comments No 0 (1 standard drink = 0.6 oz pur e alcohol) [facility] Utilities Answer Date Recorded In the past 12 months has [employer], gas, oil, or water company threatened to shut off services in your [...] often do you attend chur ch or buddhism services? Never 04/06/2025 Do you belong to any clubs o r organizations such as taoism groups, unions, fraternal or athletic groups, or [...] any time in the past 12 m [facility], were you homeless or living in a fci (including now)? No 04/06/2025 Personal Safety Answer Date Recorded Have you ever been in or are you currently in a harmful physical or emotional relationship or is someone making you feel afraid or unsafe? 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 Does message need to be routed? Yes-Action Needed * Telephone Encounter - Ave Marcos MA - 04/10/2025 2:40 PM CDT Additional Services or Orders Type of Service Requested:Other wound care, Office System Analyst referral Reason for Request (e.g. condition/symptom, date of COVID exposure if applicable): wound on right great toe, lateral aspect. 1.6 X 0.6 sonometers Details Regarding Additional Services (e.g. type of home health, type of equipment, type of test, etc.): Wound care at home, Where will services be performed? (if outside of the practice, facility name, address, phone/fax offacility): home Additional Comments: wound care and nail care, recommended a picking tech. Agustin has request a verbal authorization. Does message need to be routed? Yes-Action Needed documented in this encounter Plan of Treatment Not on [...] documented as of this encounter Visit Diagnoses Diagnosis Unspecified open wound, right foot, subsequent encounter- Primary documented in this encounter Care Teams Health And Wellness Coach Relationship Specialty Start Date End Date Joshua Trent MD [address] [facility] [address] [place] [address] PCP - General Family Practice 10/03/24 [place] [address] [address] [facility] [address] [place] [address] Referring Physician Endocrinology Diabetes & Metabolism 08/17/23 Sheela Rees, RN [address] [place] [address] [address] [place] [address] 04/05/25 documented as of this encounter
--- OUTSIDE RECORDS SUMMARY | 2025-04-26 09:02 | XMS_ITS | Encounter Summary ---
Author Organization [facility] Healthcare Address [address] [place] [address] Care Team Providers Care Child Nurse Name Role Phone Myron Enamorado MD Unavailable [phone] Joshua Hyatt MD Primary Care Provi [facility] Sheela Rees RN Unavailable [phone] Reason for Visit * Reason Onset Date Comments Medical Question/Miscellaneous 04/03/2025 Encounter Details Date Type Department Care Team (Late st Contact Info) Description 04/03/2025 Telephone [facility] Medical Group Primary Care at [address] [place] [address] Joshua Hyatt MD [address] [place] [address] [address] [place] [address] Medical Question/Miscellaneou s Social History Tobacco Use Types Packs/Day Years Used Date Smoking Tobacco: Every Day Cigarettes 1 46.7 Started: 1978 Smokeless Tobacco: Never Alcohol Use Standard Drinks/Week Comments No 0 (1 standard drink = 0.6 oz pur e alcohol) [facility] Utilities Answer Date Recorded In the past 12 months has e electric, gas, oil, or water company threatened to [...] often do you attend chur ch or adventist services? Never 04/06/2025 Do you belong to any clubs o r organizations such as islam groups, unions, fraternal or athletic groups, or [...] any time in the past 12 m [facility], were you homeless or living in a fpc (including now)? No 04/06/2025 Personal Safety Answer Date Recorded Have you ever been in or are you currently in a harmful physical or emotional relationship or is someone making you feel afraid or unsafe? 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 Joshua Hyatt will sign for home health orders for the patient. Please advise. Does message need to be routed? Yes-Action [...] on filedocumented in this encounter Care Teams Child Nurse Relationship Specialty Start Date End Date Joshua Hyatt MD [address] [facility] [address] [place] [address] PCP - General Family Practice 10/03/24 [place] [address] [address] [place] [address] Referring Physician Endocrinology Diabetes & Metabolism 08/17/23 Sheela Rees RN [address] [place] [address] [address] [place] [address] Ve Teacher 04/05/25 documented as of this encounter
--- OUTSIDE RECORDS SUMMARY | 2025-04-26 09:02 | XMS_ITS | Encounter Summary ---
Author Organization [facility] Healthcare Address [address] [place] [address] Care Team Providers Care Automotive Tire Testing Supervisor Name Role Phone Myron Enamorado MD Unavailable [phone] Joshua Hyatt MD Primary Care Provi [facility] Sheela Rees RN Unavailable [phone] Reason for Visit * Reason Onset Date Comments KIM Questions 03/30/2025 Encounter Details Date Type Department Care Team (Late st Contact Info) Description 03/30/2025 Telephone [facility] Medical Group Primary Care at [address] [place] [address] Joshua Hyatt MD [address] [facility] [address] [place] [address] KIM Questions Social History Tobacco Use Types Packs/Day Years [...] on file Legal Sex Male 8:13 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 No Will patient be transferred to another inpatient facility (e.g. senior living, inpatient rehab, etc.)? No The patient was not discharged at the time of the call. Patient will need to be contacted after discharge to complete remaining questions. Date Admitted: 03/22/25 Tentative Discharge Date: 03/31/25 Facility Admitted To: [facility] Date of KIM Appointment: Could not find one with in the 10 days. Additional Comments: Patients son Grayson has concerns about his mental state and Blood sugar levels. He is also having bladder issues. He would like an appointment [facility] because all of the problems Kevinis having are all new. He was able to live on his own and now he would not be able to. Does message need to be routed? Yes-Action Needed documented in this encounter Plan of Treatment Not on file documented as of this encounter Visit Diagnoses Not on filedocumented in this encounter Care Teams Automotive Tire Testing Supervisor Relationship Specialty Start Date End Date Joshua Hyatt MD [address] [place] [address] PCP - General Family Practice 10/03/24 [place] [address] [address] [place] [address] Referring Physician Endocrinology Diabetes & Metabolism 08/17/23 Sheela Rees RN [address] [place] [address] [address] [place] [address] Paint Grinder 04/05/25 documented as of this encounter
--- OUTSIDE RECORDS SUMMARY | 2025-04-26 09:02 | XMS_ITS | Encounter Summary ---
Author Organization [facility] Healthcare Address [address] [place] [address] Care Team Providers Care Change Manager Name Role Phone Myron Enamorado MD Unavailable [phone] Joshua Hyatt MD Primary Care Provi [facility] Sheela Rees RN Unavailable [phone] Reason for Visit * Reason Onset Date Comments Medical Question/Miscellaneous 04/19/2025 Encounter Details Date Type Department Care Team (Late st Contact Info) Description 04/19/2025 Telephone [facility] Medical Group Primary Care at [address] [place] [address] Joshua Hyatt MD [address] [place] [address] [address] [place] [address] Medical Question/Miscellaneou s Social History Tobacco Use Types Packs/Day Years Used Date Smoking Tobacco: Every Day Cigarettes 1 46.7 Started: 1976 Smokeless Tobacco: Never Alcohol Use Standard Drinks/Week Comments No 0 (1 standard drink = 0.6 oz pur e alcohol) [facility] Utilities Answer Date Recorded In the [...] often do you attend chur ch or moravian services? Never 04/06/2025 Do you belong to any clubs o r organizations such as pentecostal groups, unions, fraternal or athletic groups, or [...] any time in the past 12 m [facility], were you homeless or living in a usp (including now)? No 04/06/2025 Personal Safety Answer Date Recorded Have you ever been in or are you currently in a harmful physical or emotional relationship or is someone making you feel afraid or unsafe? Denies 04/05/2025 Sex and Gender Information Value Date Recorded Sex Assigned at Not on file Legal Sex Male 8:13 AM SECY Gender Identity Not on file Sexual Orientation Not on file documented as of this encounter Miscellaneous Notes * Telephone Encounter - Swathi Anna - 04/19/2025 3:42 PM CDT Medical Question/Miscellaneous Caller???s Concern: Agustin with [facility] called to report that patient has had a couple falls last fall was a couple days ago after both falls daughter notice BP was running in the 80s/40s, today home health check BP standing was 108/62 and sitting 124/64 informed patient to stay hydrated, and take his time. Blood Sugar has been ok. Does message need to be routed? Yes-FYI Only documented in this encounter Plan of Treatment [...] on filedocumented in this encounter Care Teams Change Manager Relationship Specialty Start Date End Date Joshua Hyatt MD [address] [facility] [address] [place] [address] PCP - General Family Practice 10/03/24 [place] [address] [address] [facility] [address] [place] [address] Referring Physician Endocrinology Diabetes & Metabolism 08/17/23 Sheela Rees, RN [address] [place] [address] [address] [place] [address] Brick Siding Applicator 04/05/25 documented as of this encounter
--- OUTSIDE RECORDS SUMMARY | 2025-04-26 09:02 | XMS_ITS | Clinical Summary ---
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 09/20/2018 CAD (coronary atherosclerotic disease) 9 History of heart artery stent 09/20/2018 Metabolic encephalopathy 09/20/2018 Type 1 diabetes mellitus wit h diabetic peripheral angiopathy without gangrene 09/20/2018 Immunizations Immunization Administration Dates Next Due ([email or web address])(12 YR UP) COVID-19 VACCINE - EMERGENCY USE AUTHORIZATION, MRNA, [id number](PF) 30 MCG/0.3 ML IM SUSP 05/27/2021,11/17/2020,10/27/2020 INFLUENZA [...] 01/03/2024 01/02/2023, 06/04/2021 LDL CHOLESTEROL ANNUAL 01/03/2024 , 06/04/2021, 01/03/2016 DIABETES HBA1C Q 6 MONTHS [...] 9:18 AM CDT) CHOLESTEROL 121 <200 mg/dL [facility] HDL 61 > OR = 40 mg/dL [facility] TRIGLYCERIDE 97 <150 mg/dL [facility]unal LDL CALCULATED 42 mg/dL (calc) [facility] Syed Comment: Reference range: <100 Desirable range <100 mg/dL for primary prevention; <70 mg/dL for patients with CHD or diabetic patients with > or = 2 CHD risk factors. LDL-C is now calculated using the Luis Armando-Cerrato calculation, which is a validated novel method providing better accuracy than the Friedewald equation in the estimation of LDL-C. Luis Armando BLACK et al. SAGAR. 2013;310(19): 2235-0094 (http://education.Super Vitamin D/faq/VWL021) CHOL/HDL RATIO 2.0 <5.0 (calc) [facility] Syed TOTAL NON-HDL CHOL(LDL+VLDL) 60 <130 mg/dL (calc) [facility] tricia Syed Comment: For patients with diabetes plus 1 major ASCVD risk factor, treating to a non-HDL-C goal of <100 mg/dL (LDL-C of <70 mg/dL) is considered a therapeutic option. FASTING:YES FASTING: YES Test Performed at: [facility] [address] [place] [address] [facility] Blood 01/02/2023 9:18 AM CDT 01/02/2023 9:22 AM CDT Result [facility] Sheela Kim NP CHEMISTRY ORDERABLES Final R esult Performing Organization Address City/[facility]/ZIP Code Phone Number [facility] [phone] [facility] [address] [place] [address] * MICROALBUMIN/CREATININE RATIO, RANDOM UR (01/02/2023 9:18 AM CDT) Creatinine, Urine 34 20 - 320 mg/dL [facility] MICROALBUMIN, URINE 1.0 See Note: [...] category. FASTING:YES FASTING: YES Test Performed at: [place] [id number] [address] Bridget Clemente MD 01/02/2023 9:18 AM CDT 01/02/2023 9:22 AM CDT Sheela Kim NP URINE ORDERABLES Final Resul t Performing Organization Address City/State/ZIP Co pr Phone Number [facility] [phone] [facility] [address] [address] * (ABNORMAL) HEMOGLOBIN A1C (01/02/2023 9:18 AM CDT) HEMOGLOBIN A1C 8.9(H) <5.7 % of total Hgb [facility]unal Comment: For someone without known diabetes, a [...] children. ESTIMATED AVERAGE GLUCOSE (MG/DL) 209 mg/dL [facility] ESTIMATED AVERAGE GLUCOSE (MMOL/L) 11.6 mmol/L [facility] Comment: FASTING:YES FASTING: YES Test Performed at: [place] [address] [place] [address] Bridget Mooney Vo Blood 01/02/2023 9:18 AM CDT 01/02/2023 9:22 AM CDT us Sheela Kim SKATING RINK MANAGER CHEMISTRY ORDERABLES Final R esult Performing Organization Address City/[facility]/ZIP [facility] Phone Number [facility] [phone] [place] [address] [place] [address] * DIABETES EYE EXAM (12/30/2021) us Abstract Provider HEALTH MAINTENANCE Edited Resu lt - Final [facility] MEDICINE [facility]# [id number] [address] [place], [place] [id number] from Last 3 Months or Most Recently Relevant to Health Maintenance Insurance
== END 2025-04-26 08:54 | disposition home or self-care (01) ==
PROVIDERS: Visit Provider Podiatrist Foot & Ankle Surgery
DX: Z13.6 Encounter for screening for cardiovascular disorders (principal); L97.512 Non-pressure chronic ulcer of other part of right foot with fat layer exposed; E11.621 Type 2 diabetes mellitus with foot ulcer
CPT/HCPCS: 73630; 78315; A9503

== ENCOUNTER 2025-05-17 09:01 | Outpatient (CLI) | payer OTHER, SELFPAY ==
--- NOTE | ~2025-05-17 | US_ITS ---
EXAMINATION: US art doppler david WHIPPLE DATE: 05/17/2025 10:32 INDICATION: Peripheral arterial occlusive disease TECHNIQUE: Segmental pressures and plethysmographic and Doppler waveforms of the brachial and lower extremity arteries were obtained. COMPARISON: None. FINDINGS: Right and left brachial artery pressures of 162 mm Hg and 168 mm Hg, respectively, are concordant (normal difference <= 30 mmHg). The right ankle-brachial index (DARYL) is 0.49 (normal >= 0.9-1) based upon pressure in the right posterior tibial artery with right dorsalis pedis artery pressure unable be obtained due to inability to occlude the vessel. The right great toe-brachial index (TBI) is 0.31 (normal >= 0.6-0.8). Arterial waveforms demonstrate normal brisk systolic upstrokes at the right common femoral, superficial femoral and popliteal arteries. There are parvus and tardus waveforms with dampened and broadened systolic peaks with mildly delayed systolic upstrokes at the right posterior tibial and dorsalis pedis arteries. The left DARYL is 0.72 (based upon the left posterior tibial artery with the left dorsalis pedis artery unable to be occluded. The left TBI is 0.57. Arterial waveforms demonstrate brisk systolic upstrokes throughout the arteries of the left lower limb. IMPRESSION: 1. Arterial occlusive disease to the bilateral lower limbs with moderate to severely decreased right DARYL and moderately decreased right TBI and with mild to moderately decreased left DARYL and mildly decreased left TBI. Reviewed, dictated and finalized at location A. IMPRESSION: 1. Arterial occlusive disease to the bilateral lower limbs with moderate to sev erely decreased right DARYL and moderately decreased right TBI and with mild to m oderately decreased left DARYL and mildly decreased left TBI.
--- OUTSIDE RECORDS SUMMARY | 2025-05-17 09:45 | XMS_ITS ---
Author Organization [facility] ([facility]) Address [address] [place] [id number] Care Team Providers Care Qa Engineer Name Role Phone Unavailable Unavailable Unavailable Allergies, Adverse Reactions, Alerts This patient has no known allergies or adverse reactions. Problems This patient has no known problems.
--- OUTSIDE RECORDS SUMMARY | 2025-05-17 09:45 | XMS_ITS | Encounter Summary ---
Author Organization [facility] Healthcare Address [address] [place] [address] Care Team Providers Care Paper Cup Machine Operator Name Role Phone Myron Enamorado MD Unavailable [phone] Johsua Hyatt MD Primary Care Provi [facility] Sheela Rees RN Unavailable [phone] Reason for Visit * Reason Onset Date Comments Hypotension 04/28/2025 Encounter Details Date Type Department Care Team (Late st Contact Info) Description 04/28/2025 Telephone [facility] Medical Group Primary [place] at [place] [address] [place] [address] [address] [place] [address] Joshua Hyatt MD [address] [place] [address] [address] [place] [address] Hypotension Social History Tobacco Use Types Packs/Day Years Used Date Smoking Tobacco: Every Day Cigarettes 1 46.7 Started: 1976 Smokeless Tobacco: Never Alcohol Use Standard Drinks/Week Comments No 0 (1 standard drink = 0.6 oz pur e alcohol) [facility] Utilities Answer Date Recorded In the past 12 months has [employer], gas, oil, or water company threatened to [...] often do you attend chur ch or sabianist services? Never 04/06/2025 Do you belong to any clubs o r organizations such as methodist groups, unions, fraternal or athletic groups, or [...] any time in the past 12 m [facility], were you homeless or living in a prison (including now)? No 04/06/2025 Personal Safety Answer Date Recorded Have you ever been in or are you currently in a harmful physical or emotional relationship or is someone making you feel afraid or unsafe? 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 Left detailed message asking him to call back with an update. * Telephone Encounter - Dian Light MA - 04/28/2025 1:15 PM CDT Left detailed message for pt that per Dr. Hyatt's last OV note he needs to continue to push fluids for this issue. Asked him to call back with any sxs of dizziness or syncope. Other coleman Dr. Hyatt isn't in the office today and we are closed Thursday. We will be back in the office Thursday next week. He should get evaluated at [facility] or ED if increasing dizzy or syncope. * Telephone Encounter - Sheela Rees RN - 04/28/2025 12:18 PM CDT Patient has episodes of low b/p, it was as low as 50s systolic earlier this week. Family gave some fluids and his b/p improved. Patient is on no anti-hypertensive meds. He was recently admitted for Hyponatremia. He is on no fluid restrictions and his last metabolic panel was checked in early March. Please advise Thank you, Sheela Rees RN, BSN, ACM Tanker Driver [facility] ACO [email or web address] [phone] documented in this encounter Plan of Treatment [...] on filedocumented in this encounter Care Teams Paper Cup Machine Operator Relationship Specialty Start Date End Date Joshua Hyatt MD [address] [facility] [address] [place] [address] PCP - General Family Practice 10/03/24 [place] [address] [address] [facility] [address] [place] [address] Referring Physician Endocrinology Diabetes & Metabolism 08/17/23 Sheela Rees RN [address] [place] [address] [address] [place] [address] Tanker Driver 04/05/25 documented as of this encounter
--- OUTSIDE RECORDS SUMMARY | 2025-05-17 09:46 | XMS_ITS | Clinical Summary ---
Author Organization [facility] Address [address] [place] [address] Care Team Providers Care Election Clerk Name Role Phone Unavailable Primary Care Provider Unavailabl e Source Comments [facility],non-owned Affiliates and Associated Physician Practices is amultiple site organization consisting of ambulatory clinics and hospital sitesin [place], [place], [place] and [place]. This disclosure is being madepursuant to the Care Everywhere program and may not contain all information available regarding this patient. 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 Gender Identity Not on file Sexual Orientation [...] 08/31/2024 COVID-19 VACCINE (6 - 2023- season) 2025 05/09/2024, 04/27/2024, 06/08/2023, Additional history exists INFLUENZA [...] Recently Relevant to Health Maintenance Insurance [facility] MED[facility]ARE SELF PAY NO INSURANCE Member Subscriber Plan / Payer (Ef fective for All Dates) Name:Gal Paul Member ID:Not on file Relation to Subscriber:Not on file Name:GAL PAUL Subscriber ID:Not on file Address: [address] [place] [address] Payer ID:Not on file Group ID:Not on file Type:Self Pay Address: [place], [place] [facility] MEDICARE SELF PAY NO INSURANCE Member Subscriber Plan / Payer (Ef fective for All Dates) Name:Gal Paul Member ID:Not on file Relation to Subscriber:Not on file Name:GAL PAUL Subscriber ID:Not on file Address: [address] [place] [address] Payer ID:Not on file Group ID:Not on file Type:Self Pay Address: [place], [place] [facility] MEDICARE SELF PAY NO INSURANCE Member Subscriber Plan / Payer (Ef fective for All Dates) Name:Gal Paul Member ID:Not on file Relation to Subscriber:Not on file Name:GAL PAUL Subscriber ID:Not on file Address: [address] [address] Payer ID:Not on file Group ID:Not on file Type:Self Pay Address: [place], [place] [address] [place] [address]
--- OUTSIDE RECORDS SUMMARY | 2025-05-17 09:46 | XMS_ITS | Patient Health Record ---
Author Organization [facility] Address [address] [place], [place] [id number] Care Team Providers Care Schedule Planning Manager Name Role Phone SHAI Dunn Unavailable [phone] Joe Forte Unavailable Unavailable Reason For Referral No Information Medications Medication SIG (Take, Route, Frequency, Duration) Notes Start Date End Date Status aspirin 81 MG Delayed Release Oral Tablet [Carlos Aspirin] ORAL aspirin 81 MG Delayed Release Oral Tablet [Carlos Aspirin]Original Medicationaspirin 81 MG Delayed Release Oral Tablet [Carlos Aspirin] *Reorder from [employer] for eRx and Interaction Alerts* 11/28/2020 Active atorvastatin 40 MG Oral Tablet ORAL atorvastatin 40 MG Oral TabletOriginal Medicationatorvastatin 40 MG Oral Tablet *Reorder from [employer] for eRx and Interaction Alerts* 11/28/2020 Active thioctic acid 300 MG Oral Capsule ORAL thioctic acid 300 MG Oral CapsuleOriginal Medicationthioctic acid 300 MG Oral Capsule *Reorder from [employer] for eRx and Interaction Alerts* 11/28/2020 Active Plan Of Treatment No Information Insurance Providers Payer Name Payer Address Payer Phone Subscriber Number Group Number Insured Name Patient Relationship to Insured Coverage Start Date Coverage End Date [facility] [address] [address] [place] [address] [id number] GAL COOLEY Self - patient is the insured
--- OUTSIDE RECORDS SUMMARY | 2025-05-17 09:46 | XMS_ITS | Encounter Summary ---
Author Organization [facility] Healthcare Address [address] [place] [address] Care Team Providers Care Sales Office Administrator Name Role Phone Myron Enamorado MD Unavailable [phone] Joshua Hyatt MD Primary Care Provi [facility] Sheela Rees RN Unavailable [phone] Reason for Visit * Reason Onset Date Comments Medical Question/Miscellaneous 04/19/2025 Encounter Details Date Type Department Care Team (Late st Contact Info) Description 04/19/2025 Telephone [facility] Medical Group Primary Care at [address] [place] [address] Joshua Hyatt MD [address] [place] [address] [address] [place] [address] Medical Question/Miscellaneou s Social History Tobacco Use Types Packs/Day Years Used Date Smoking Tobacco: Every Day Cigarettes 1 46.7 Started: 1976 Smokeless Tobacco: Never Alcohol Use Standard Drinks/Week Comments No 0 (1 standard drink = 0.6 oz pur e alcohol) [facility] Utilities Answer Date Recorded In the [...] often do you attend chur ch or advent services? Never 04/06/2025 Do you belong to any clubs o r organizations such as shinto groups, unions, fraternal or athletic groups, or [...] any time in the past 12 m [facility], were you homeless or living in a residential (including now)? No 04/06/2025 Personal Safety Answer Date Recorded Have you ever been in or are you currently in a harmful physical or emotional relationship or is someone making you feel afraid or unsafe? 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 Gender Identity Not on file Sexual Orientation Not on file documented as of this encounter Miscellaneous Notes * Telephone Encounter - Swathi Anna - 04/19/2025 3:42 PM CDT Medical Question/Miscellaneous Caller???s Concern: Agustin with [facility] called to report that patient has had [...] on filedocumented in this encounter Care Teams Sales Office Administrator Relationship Specialty Start Date End Date Joshua Hyatt MD [address] [facility] [[email or web address] [address] [place] [address] PCP - General Family Practice 10/03/24 [place] [address] [address] [facility] [[email or web address]] [address] [place] [address] Referring Physician Endocrinology Diabetes & Metabolism 08/17/23 Sheela Rees, RN [address] [place] [address] [address] [place] [address] Tool Design Checker 04/05/25 documented as of this encounter
--- OUTSIDE RECORDS SUMMARY | 2025-05-17 09:46 | XMS_ITS | Clinical Summary ---
Author Organization [facility] [address] [place] [address] Care Team Providers Care Side Sawyer Name Role Phone Myron Enamorado MD Unavailable [phone] Joshua Hyatt MD Primary Care Provi masoud Sheela Rees RN Unavailable [phone] Allergies Active Allergy Reactions Criticality Noted Date Comments Meperidine Dizziness Low Medications blood-glucose transmitter (Dexcom G6 Transmitter) deviceIndications: Type 1 diabetes mellitus with diabetic polyneuropathy (HCC) DIRECTED IN VITRO FOR CONTINUOUS GLUCOSE MONITORING (E10.65) 90 DAYS 10/11/19 22 Active insulin syringe-needle U-100 0.3 mL 31 gauge x 5/16 syringe 1 each daily Use incase of pump failure 01/21/20 24 Active glucagon 1 mg kit Use as directed for low blood sugar. 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 to monitor blood sugar 1 [...] 90 tablet 1 02/28/20 25 025 Active pen needle, diabetic (Novofine 32) 32 gauge x 1/4 needleIndications: Type 1 diabetes mellitus with hyperglycemia (HCC) Use to inject insulin 4 times daily 400 each 3 04/04/20 25 Active insulin lispro (HumaLOG, ADMELOG) 100 unit/mL [...] XL (WELLBUTRIN XL) 150 mg 24 hr tabletIndications: Tobacco abuse Take 1 tablet (150 mg total) by mouth daily 90 tablet 04/11/20 25 025 Active tamsulosin (FLOMAX) 0.4 mg extended release capsuleIndications :Benign prostatic hyperplasia with lower urinary tract symptoms, symptom details unspecified Take 1 capsule (0.4 mg total) by mouth 2 (two) times a day 180 capsule 05/02/20 25 Active tamsulosin (FLOMAX) 0.4 mg extended release capsule Take 1 capsule (0.4 mg total) by mouth 2 (two) times a day 03/27/20 25 025 Discontin ued(Reord er) Active Problems Problem [...] daily Assessment & Plan (10/26/2024 11:44 AM HEALTH EDUCATION AIDE): Chronic problem. Mild microalbuminuria (52). Will recheck today as he's getting labs done for PCP already. Currently taking lisinopril 2.5mg daily Assessment & Plan (07/06/2024 10:20 AM HEALTH EDUCATION AIDE): Continue lisinopril Type 1 diabetes mellitus with [...] eye exam (02/27/25 mild NPDR [facility]) UTD on labs. Discussed with Mirza Griffin: [...] infection. Assessment & Plan (10/26/2024 11:45 AM HEALTH EDUCATION AIDE): Chronic problem. A1c near goal; improved slightly [...] infection. Assessment & Plan (07/07/2024 11:06 AM HEALTH EDUCATION AIDE): Stable. Follows with endocrinology. Assessment & Plan (07/06/2024 10:20 AM HEALTH EDUCATION AIDE): Chronic, uncontrolled Hemoglobin A1c 7.7%, not at [...] TG=66. Assessment & Plan (10/26/2024 11:43 AM HEALTH EDUCATION AIDE): Chronic problem. Controlled on current Atorvastatin 40mg. Last lipid panel: 03/01/24 LDL=58, TG=55. Assessment & Plan (07/06/2024 10:20 AM HEALTH EDUCATION AIDE): Continue statin therapy Assessment & Plan (04/13/2024 [...] cessation Assessment & Plan (08/17/2023 6:15 PM HEALTH EDUCATION AIDE): Chronic. Needs improvement. Wants to change stoker mechanic to [facility] specialists. Referral provided. Encouraged to continue use of insulin pump, C GM. He will continue working with his current stoker mechanic until he can see the [facility] stoker mechanic. Foot and eye care discussed History of [...] 3-10 minutes spent on counseling. [Modifier 25; 06290 3-10 min; 03158 > 10 min] Mild dementia without behavi [...] monitor Assessment & Plan (08/17/2023 6:13 PM HEALTH EDUCATION AIDE): Mild per record. On donepezil. May have [...] Monitor Assessment & Plan (08/17/2023 6:14 PM HEALTH EDUCATION AIDE): Prior amputation for combination of diabetic ulcer/ischemia. [...] discussed Assessment & Plan (08/17/2023 6:13 PM HEALTH EDUCATION AIDE): Chronic. Denies chest pain. Continue risk factor modification with ASA, high-intensity statin, blood pressure control. LDL goal less than 70. Currently does not follow with Cardiology History of heart artery stent 09/20/2018 Assessment & Plan (08/17/2023 6:13 PM HEALTH EDUCATION AIDE): Last stent was a few years ago. [...] changes. Assessment & Plan (08/17/2023 6:14 PM HEALTH EDUCATION AIDE): Chronic. Has a significant amount of neuropathy [...] concerns. Assessment & Plan (10/26/2024 11:44 AM HEALTH EDUCATION AIDE): No pump setting changes today. Discussed bolusing more with HS snack. 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 He will [...] Encounters Date Type Department Care Team Description 04/28/[address] [facility] Medical [facility] Primary Care at [address] [phone] Joshua Hyatt MD Hypotension 04/19/2025 Telephone [facility] Primary Care at [address] [phone] Joshua Hyatt MD Medical Question/Miscellaneous 04/13/2025 Telephone [facility] Primary Care at [address] [phone] Joshua Hyatt MD 04/13/[address] [facility] Medical [facility] Primary Care at [address] [phone] oJshua Hyatt MD 04/13/[address] [facility] Medical [facility] Primary Care at [address] [phone] Joshua Hyatt MD 04/11/2025 1:30 PM CDT Office Visit [facility] Medical [facility] Primary Care at [address] [place] [phone] Joshua Hyatt MD Hospital discharge follow-up (Primary Dx); Unspecified open wound, right foot, subsequent encounter; Diabetes mellitus type 1 with peripheral artery disease (HCC); Mild dementia without behavioral disturbance, psychotic disturbance, mood disturbance, or anxiety, unspecified dementia type (HCC); Difficulty in walking, not elsewhere classified; Tobacco abuse; Nicotine dependence, cigarettes, uncomplicated 04/11/[address] [facility] Medical Group Primary Care at [address] [phone] Joshua Hyatt MD Medical Question/Miscellaneous 04/11/[address] [facility] Home Care Services [address] [place] [address] [address] [place] [address] Riya Tyler 04/10/[address] [facility] Medical [facility] Primary Care at [address] [place] [phone] Joshua Hyatt MD Additional Services Or Orders 04/07/[address] [facility] Medical [facility] Primary Care at [address] [phone] Joshua Hyatt MD 04/05/2025 12:52 PM CDT - 04/05/2025 4:57 PM CDT Emergency [facility] Emergency Department [address] [place] [phone] Mac Brumfield MD Orthostasis (Primary Dx); Hyperglycemia Discharge Disposition: Discharge to home or self care 04/04/2025 8:30 AM CDT Office Visit [facility] Endocr[facility]ology [facility] [place] [phone] Bekah Balderas NP Type 1 diabetes mellitus with hyperglycemia (HCC) (Primary Dx); Hyperlipidemia due to type 1 diabetes mellitus (HCC); Microalbuminuria due to type 1 diabetes mellitus (HCC); Insulin pump status; Type 1 diabetes mellitus with diabetic polyneuropathy (HCC) 04/04/2025 Telephone [facility] [address] [place] [phone] Bekah Balderas NP Request for alternative Rx (Insurance prefers Humalog) 04/04/2025 Imaging Exam [facility] Primary Care at [address] [phone] Marisa Gomez MA 04/03/2025 Telephone [facility] Primary Care at [address] [phone] Joshua Hyatt MD Referral Request 04/03/2025 Telephone [facility] Primary Care at [address] [phone] Joshua Hyatt MD Medical Question/Miscellaneous 03/30/2025 Telephone [facility] Primary Care at [address] [phone] Joshua Hyatt MD KIM Questions 03/24/2025 Telephone [facility] of [address] [phone] Corey Restrepo MD Pump Settings 03/23/2025 Orders Only [facility] Primary Care at [address] [phone] Laurie Painting MD 03/07/2025 Orders Only [facility] [address] [place] [phone] Laurie Painting MD from Last 3 Months Immunizations Immunization Administration Dates Next Due Influenza, Quadrivalent, Dian l Culture-based MDCK, Preservative Free, Antibiotic Free, Intramuscular 07/01/2022 Influenza, Quadrivalent, Hig h Dose, Preservative Free, Intrr 06/08/2023 Influenza, Quadrivalent, Spl it, Preservative Free, Intramuscular 06/16/2016 Influenza, Trivalent, IM (MDV) 06/29/2022,2018,05/10/2018 Influenza, Unspecified 05/09/2024,06/08/2023 Accumetrics Sars-Cov-2 Bivalent V accination (12+ YRS) 05/09/2024 Pneumococcal Conjugate Pcv20 03/01/2024 Pneumococcal Polysaccharide PPV23 06/16/2016 ZOSTER Recombinant 01/03/2023,07/01/2022 Surgical History Surgery Date Site/Laterality Comments CARDIAC CATHETERIZATION 08/31/2015 - 08/30/2016 left heart cath with PCI FEMORAL ARTERY STENT 11/29/2020 - 12/28/2020 Bilateral Aortogram c B LE RO R SFA 4.5x15 mm Resolute [place] stent placement R [place] PA 4.5x22 Resolute [...] drink = 0.6 oz pur e alcohol) [facility] Utilities Answer Date Recorded In the past 12 months has [employer], gas, oil, or water [employer] threatened to shut off services in your [...] often do you attend chur ch or congregational services? Never 04/06/2025 Do you belong to any clubs o r organizations such as mandaen groups, unions, fraternal or athletic groups, or [...] any time in the past 12 m [facility], were you homeless or living in a detention (including now)? No 04/06/2025 Personal Safety Answer Date Recorded Have you ever been in or are you currently in a harmful physical or emotional relationship or is someone making you feel afraid or unsafe? Denies 04/05/2025 Sex and Gender Information Value Date Recorded Sex Assigned at Not on file Legal Sex Male 8:13 AM HEALTH EDUCATION AIDE Gender Identity Not on file Sexual Orientation [...] 2002 Well Visit 65+ 05/27/2023 05/27/2022, 05/30/2021 TSH Level 03/01/2025 03/01/2024, 05/01, 05/11/2023 Covid-19 Vaccine (2 6 season) 2025 05/09/2024, 06/08/2023, 05/27/2021, Additional history exists Influenza Vaccine (#1) 2025 , 06/08/2023, 06/08/2023, Additional history exists Depression Screening 10/05/2025 10/05/2024, 03/01/2024, 08/17/2023 Hemoglobin A1C 10/05/2025 04/04/2025, 0605/2025, 10/26/2024, Additional history exists Albumin Creatinine Ratio, Urine 10/26/2025 10/26/2024, 03/01/2024, 05/11/2023, Additional history exists Lipid Panel 02/07/2026 02/07/2025, 0 10/2023, 05/11/2023, Additional history exists Foot Exam 04/04/2026 04/04/2025, 110 11/2023, 08/17/2023 eGFR 04/05/2026 04/05/2025, 01/2025, 11/10/2024, Additional history exists Fall Risk Assessment [...] hyperglycemia (HCC) POCT HEMOGLOBIN A1C Routine 04/04/2025 8:23 AM CDT Type 1 diabetes mellitus with hyperglycemia (HCC) XR CHEST 1 VIEW Schedule Routine, Read Routine (OP Routine) 03/22/2025 2:14 PM CDT HEAD COMPUTED TOMOGRAPHY (CT) WITHOUT CONTRAST Schedule Routine, Read Routine (OP Routine) 03/22/2025 CT CERVICAL SPINE WO CONTRAST Schedule Routine, Read Routine (OP Routine) 03/22/2025 DIABETES EYE EXAM Routine 02/27/2025 7:32 AM CDT LIPID PANEL Routine 02/07/2025 9:38 AM CDT Type 1 diabetes mellitus with hyperglycemia (HCC) Hyperlipidemia due to type 1 diabetes mellitus (HCC) ABDOMINAL AORTIC ANEURYSM SCREENING Routine 10/27/2024 11:48 AM HEALTH EDUCATION AIDE ALBUMIN CREATININE RATIO, URINE Routine 10/26/2024 11:47 AM HEALTH EDUCATION AIDE Type 1 diabetes mellitus with hyperglycemia (HCC) HEPATITIS C ANTIBODY Routine 03/01/2024 10:38 AM CDT Encounter for hepatitis C screening test for low risk patient THYROID FUNCTION CASCADE Routine 03/01/2024 10:38 AM CDT Type 1 diabetes mellitus with diabetic polyneuropathy (HCC) Diabetes mellitus type 1 with peripheral artery disease (HCC) Atherosclerosis of [place] coronary artery of [place] heart without angina pectoris COLONOSCOPY Routine 10/29/2023 from Last 3 Months or Most Recently Relevant to Health Maintenance Results * Sepsis Lactate w/ Reflex (04/05/2025 4:00 PM CDT) Sepsis Lactate 1.9 0.7 - 2.0 mmol/L Blood 04/05/2025 4:00 PM CDT 04/05/2025 4:04 PM CDT Mac Brumfield MD LAB BLOOD ORDERABLES Fi nal Result Performing Organization Address [facility] Co de Phone Number [facility] [address] [place] [address] * (ABNORMAL) Troponin T high-sensitivity 2-hour (04/05/2025 3:31 PM CDT) Trop T hs 30(H) <=22 ng/L Comment: Interpretive Data For further hscTnT resources including the diagnostic algorithm and an aid in interpretation, copy and paste this link: https://nrl.testcatalog.org/show/hsTrop Current Interpretive Data last revised 2020. Trop T hs delta 7 ng/L [facility] Trop T hs interp Equivocal [facility] Blood 04/05/2025 3:31 PM CDT 04/05/2025 3:42 PM CDT Mac Brumfield MD LAB BLOOD ORDERABLES Fi nal Result Performing Organization Address [facility] Co de Phone Number [facility] [address] [place] [address] * (ABNORMAL) Urinalysis reflex to microscopic and culture Urine (04/05/2025 2:43 PM CDT) Color, ur Yellow Yellow Clarity, ur Clear Clear [facility] Specific gravity, ur 1.009 1.003 - 1.030 [facility] pH, urine 6.0 [facility] Comment: Interpretive Data U rine pH is affected by diet, medications, systemic acid-base disturbances, and renal tubular function. pH may affect urinary stone formation. For example, urine pH below 6.0 may help reduce the tendency for calcium phosphate stones and pH greater than 6.0 may reduce the tendency for uric acid stone formation. Source: [facility] [employer] Current Interpretive Data was last revised on 2017 Protein, ur ql Negative Negative [facility] Glucose, ur ql 2+(A) Negative [facility] Ketones, ur Negative Negative [facility] Bilirubin, ur Negative Negative [facility] Blood, ur 2+(A) Negative [facility] Urobilinogen, ur <2.0 <2.0 mg/dL [facility] Nitrite, ur Negative Negative [facility] Leukocyte esterase, ur Negative Negative [facility] UA reflex comment Reflex to microscopic UA will be performed. [facility] Urine 04/05/2025 2:43 PM CDT 04/05/2025 2:43 PM CDT Narrative [facility] - 04/05/2025 3:07 PM CDT If patient unable to urinate, straight cath Mac Brumfield MD LAB MICROBIOLOGY - GENE RAL ORDERABLES Final Result Performing Organization Address City/[facility]/ZIP Co de Phone Number [facility] [address] [place] [address] * (ABNORMAL) Urinalysis, microscopic only (04/05/2025 2:43 PM CDT) Pathologist [facility] [place] WBC, ur 0-5 0 - 5 /HPF RBC, ur 6-10(A) 0 - 2 /HPF [facility] Epithelial cells, squamous, ur 1-5 0 - 5 /HPF [facility] Bacteria, ur Trace(A) [facility] Culture Reflex Comment Reflex conditions for urine culture (WBC >10) not met. [facility] Urine 04/05/2025 2:43 PM CDT 04/05/2025 3:02 PM CDT Mac Brumfield MD LAB URINE ORDERABLES Ed ited Result - Final [facility] [address] [place] [address] * Troponin T HS (series) - Add on lab test (04/05/2025 1:21 PM CDT) Acceptable Yes Blood 04/05/2025 1:21 PM CDT 04/05/2025 1:34 PM CDT Narrative [facility] - 04/05/2025 1:34 PM CDT Name of Test->Troponin T HS (series) us Mac Brumfield MD LAB BLOOD ORDERABLES Fi nal Result [facility] [address] Department [place] [address] * XR Chest 1 Vw Portable (If [...] it. Electronically signed by: Kaden Dykes M.D. us Mac Brumfield MD IMG XR [...] ORDERABLES Fi nal Result Performing Organization Address [facility] Co de Phone Number [facility] [address] [place] [address] * eGFR (04/05/2025 12:52 PM CDT) Pathologist [facility] [place] eGFR 79 >=60 mL/min/1. 73 m2 Comment: [...] ORDERABLES Fi nal Result Performing Organization Address City/[facility]/ZIP Co de Phone Number [facility] [address] Department [place] [address] * (ABNORMAL) Comprehensive metabolic panel (04/05/2025 12:52 PM CDT) Sodium 133(L) 135 - 145 mmol/L Potassium, pl 4.8 3.3 - 4.9 mmol/L [facility] Chloride 98 97 - 110 mmol/L [facility] CO2 22 22 - 32 mmol/L [facility] Anion gap 13 2 - 15 mmol/L [facility] BUN 20 6 - 25 mg/dL [facility] Creatinine 1.01 0.80 - 1.30 mg/dL [facility] Glucose 250(H) 70 - 199 mg/dL [facility] Comment: Interpretive Data Fasting glucose >/= 126 [...] 2022. Calcium 8.6 8.5 - 10.3 mg/dL [facility] Bilirubin, total 0.3 0.1 - 1.2 mg/dL [facility] Protein, pl 6.2(L) 6.5 - 8.5 g/dL [facility] Albumin 3.7 3.5 - 5.0 g/dL [facility] Alk phos 88 40 - 130 Units/L [facility] ALT 11 7 - 55 Units/L [facility] AST 27 10 - 50 Units/L [facility] Comment:Slightly Hemolyzed S pecimen Blood 04/05/2025 12:5 2 PM CDT 04/05/2025 12:52 PM CDT Mac Brumfield MD LAB BLOOD ORDERABLES Fi nal Result [facility] [address] [place] [address] * (ABNORMAL) Sepsis Lactate w/ Reflex (04/05/2025 12:15 PM CDT) Pathologist [facility] [place] Sepsis Lactate 3.7(H) 0.7 - 2.0 mmol/L Blood 04/05/2025 12:1 5 PM CDT 04/05/2025 12:22 PM CDT Mac Brumfield MD LAB BLOOD ORDERABLES Fi nal Result Performing Organization Address City/[facility]/ZIP Co de Phone Number [facility] [address] [facility] [place] [address] * eGFR (04/05/2025 12:15 PM CDT) Pathologist [facility] [place] eGFR 80 >=60 mL/min/1. 73 m2 Comment: [...] LAB BLOOD ORDERABLES Fi nal Result [facility] [address] Department [place] [address] * (ABNORMAL) Differential, auto (04/05/2025 12:15 PM CDT) Neutrophil abs 9.08(H) 1.50 - 6.50 K/cumm Imm gran abs 0.04 0.00 - 0.10 K/cumm [facility] Lymphocyte abs 1.26 0.80 - 3.30 K/cumm [facility] Monocyte abs 0.67 0.20 - 0.80 K/cumm [facility] Eosinophil abs 0.08 0.00 - 0.50 K/cumm [facility] Basophil abs 0.09 0.00 - 0.10 K/cumm [facility] Neutrophil pct 80.9 % [facility] Comment: Interpretive Data Percent cell count reference ranges are not reported, since discordance with absolute values may lead to misinterpretation of CBC data. Current Interpretive Data was last revised on 2017. Imm gran pct 0.4 % [facility] Comment: Interpretive Data Percent cell count reference ranges are not reported, since discordance with absolute values may lead to misinterpretation of CBC data. Current Interpretive Data was last revised on 2017. Lymphocyte pct 11.2 % [facility] Comment: Interpretive Data Percent cell count reference ranges are not reported, since discordance with absolute values may lead to misinterpretation of CBC data. Current Interpretive Data was last revised on 2017. Monocyte pct 6.0 % [facility] Comment: Interpretive Data Percent cell count reference ranges are not reported, since discordance with absolute values may lead to misinterpretation of CBC data. Current Interpretive Data was last revised on 2017. Eosinophil pct 0.7 % [facility] Comment: Interpretive Data Percent cell count reference ranges are not reported, since discordance with absolute values may lead to misinterpretation of CBC data. Current Interpretive Data was last revised on 2017. Basophil pct 0.8 % [facility] Comment: Interpretive Data Percent cell count reference ranges are not reported, since discordance with absolute values may lead to misinterpretation of CBC data. Current Interpretive Data was last revised on 2017. Blood 04/05/2025 12:1 5 PM CDT 04/05/2025 12:25 PM CDT Mac Brumfield MD LAB BLOOD ORDERABLES Fi nal Result [facility] [address] [facility] [place] [address] * Beta-hydroxybutyrate (04/05/2025 12:15 PM CDT) [facility] Beta-Hydroxybut yrate 0.1 <=0.5 mmol/L Blood 04/05/2025 12:1 5 PM CDT 04/05/2025 12:25 PM CDT Mac Brumfield MD LAB BLOOD ORDERABLES Fi nal Result Performing Organization Address [facility] Co de Phone Number [facility] [address] [place] [address] * (ABNORMAL) CBC with auto differential (04/05/2025 12:15 PM CDT) [facility] WBC 11.22(H) 3.80 - 9.90 K/cumm Hgb 11.7(L) 13.0 - 17.5 g/dL [facility] Hct 37.1(L) 38.9 - 50.3 % [facility] Plt 273 150 - 400 K/cumm [facility] MPV 10.5 9.1 - 12.3 fL [facility] RBC 4.03(L) 4.30 - 5.80 M/cumm [facility] MCV 92.1 81.3 - 96.4 fL [facility] MCH 29.0 27.1 - 33.3 pg [facility] MCHC 31.5(L) 32.3 - 35.7 g/dL [facility] RDW CV 14.6 11.1 - 14.9 % [facility] RDW SD 49.6(H) 35.7 - 48.1 fL [facility] NRBC abs 0.00 0.00 - 0.01 K/cumm [facility] Blood 04/05/2025 12:1 5 PM CDT 04/05/2025 12:25 PM CDT Mac Brumfield MD LAB BLOOD ORDERABLES Fi nal Result Performing Organization Address [facility] Co de Phone Number [facility] [address] [facility] [place] [address] * (ABNORMAL) Blood gas, venous (04/05/2025 12:15 PM CDT) pH, Venous 7.30(L) 7.32 - 7.43 PCO2, Venous 51(H) 40 - 50 mmHg [facility] PO2, Venous 56 mmHg [facility] Comment: Interpretive Data No Reference Range Established Current Interpretive Data was last revised on 2017. HCO3 Venous, Calculated 25 20 - 30 mmol/L [facility] BE, venous -2 mmol/L [facility] Comment: nterpretive Data No Reference Range Established Current Interpretive Data was last revised on 2017. Blood Venous blood specimen / Unknown 04/05/2025 12:15 PM CDT 04/05/2025 12:22 PM CDT Mac Brumfield MD LAB BLOOD ORDERABLES Fi nal Result Performing Organization Address [facility] Co de Phone Number [facility] [address] [facility] [place] [address] * (ABNORMAL) Comprehensive metabolic panel (04/05/2025 12:15 PM CDT) Sodium 134(L) 135 - 145 mmol/L Potassium, pl 4.8 3.3 - 4.9 mmol/L [facility] Chloride 99 97 - 110 mmol/L [facility] CO2 22 22 - 32 mmol/L [facility] Anion gap 13 2 - 15 mmol/L [facility] BUN 20 6 - 25 mg/dL [facility] Creatinine 1.00 0.80 - 1.30 mg/dL [facility] Glucose 250(H) 70 - 199 mg/dL [facility] Comment: Interpretive Data Fasting glucose >/= 126 [...] 2022. Calcium 8.6 8.5 - 10.3 mg/dL [facility] Bilirubin, total 0.3 0.1 - 1.2 mg/dL [facility] Protein, pl 6.1(L) 6.5 - 8.5 g/dL [facility] Albumin 3.6 3.5 - 5.0 g/dL [facility] Alk phos 88 40 - 130 Units/L [facility] ALT 10 7 - 55 Units/L [facility] AST 27 10 - 50 Units/L [facility] Blood 04/05/2025 12:1 5 PM CDT 04/05/2025 12:25 PM CDT us Mac Brumfield MD LAB BLOOD ORDERABLES Fi nal Result [facility] [address] Department [place] [address] * (ABNORMAL) POCT glucose (04/05/2025 11:25 AM CDT) [facility] Glucose, POC 332(H) 70 - 199 mg/dL Comment: For Glucose values <35 mg/dl when Hematocrit is >60 mg/dl,the test may not accurately detect significant hypoglycemia,and testing in the Laboratory should be considered if clinically indicated. Blood 04/05/2025 11:2 5 AM CDT 04/05/2025 11:25 AM CDT us Notinfile Unknown LAB POCT ORDERABLES - DEVICE F inal Result [facility] [address] Department [place] [address] * ECG 12 lead (04/05/2025 11:14 AM CDT) 04/05/2025 11:1 4 AM CDT Narrative [facility] - 04/05/2025 10:33 PM CDT Vent Rate: 79 bpm RR Interval: 755 msec NM Interval: 157 msec QRS Duration: 81 msec QT Interval: 367 msec QTC Interval: 402 msec P-R-T [place]: 75 - 72 - 83 degrees IMPRESSION: SINUS RHYTHM NORMAL ECG Electronically Signed By: Kaden Read MD PhD us Mac Brumfield MD ECG ORDERABLES Final R esult Performing Organization Address [facility] Co de Phone Number [facility] Receptor [facility] * (ABNORMAL) POCT hemoglobin A1c (04/04/2025 8:23 AM CDT) Hemoglobin A1C, POC 7.7(A) 4.0 - 5.6 % Capillary blood 04/04/2025 8 :23 AM CDT us Bekahceci Balderas [employer] POINT OF CARE TEST ORDERA BLES Final Result * (ABNORMAL) POCT glucose (04/04/2025 8:23 AM CDT) Glucose Blood, POC 366 Normal Fasting 70 - 100, Random <200 mg/dL Comment:PPG 1.5 Hrs Blood 04/04/2025 8:23 AM CDT us Bekah Adriana Balderas [employer] POINT OF CARE TEST ORDERA BLES Final Result * XR Chest 1 View (03/22/2025 2:14 PM CDT) Anatomical Region Laterality Modality Body, Chest N/A Radiographic Luz Maria ging 03/22/2025 2:14 PM CDT Historical Provider MD IMG XR PROCEDURES Final R esult * HEAD COMPUTED TOMOGRAPHY (CT) WITHOUT CONTRAST (03/22/2025) Anatomical Region Laterality Modality N/A Computed Tomogra phy 03/22/2025 Historical Provider MD IMG CT PROCEDURES Final R esult * CT Cervical Spine WO Contrast (03/22/2025) Anatomical Region Laterality Modality Spine N/A Computed Tomogra phy 03/22/2025 [facility] Provider MD IMG CT PROCEDURES Final R esult * HM DIABETES EYE EXAM (02/27/2025 7:32 AM CDT) [facility] Provider HEALTH MAINTENANCE Final Result * Lipid panel (02/07/2025 9:38 AM CDT) [...] NCEP Expert Panel. Circulation 2004;110:227 3. Paul Menjivar al. SAGAR Cardiol. 2020 December 29;5(5):540-548. doi: 10.1001/jamacardio.2020.0013 Current Interpretive Data was [...] last revised on 2018. Chol/HDL ratio 3 [facility] Blood 02/07/2025 9:38 AM CDT 02/07/2025 2:52 PM CDT Corey Sanchez MD LAB BLOOD ORDERABLE S Final Result [facility] [address] [place] [address] * ABDOMINAL AORTIC ANEURYSM SCREENING (10/27/2024 11:48 AM HEALTH EDUCATION AIDE) Historical Provider HEALTH MAINTENANCE Final Result * (ABNORMAL) Albumin Creatinine Ratio, Urine (10/26/2024 11:47 AM HEALTH EDUCATION AIDE) Albumin Ur 20.9 mg/L Comment: Interpretive Data No reference range established. Current interpretive data was last revised 2019. Creatinine Ur 47.8 mg/dL [facility] Comment: Interpretive Data No reference range established. Current interpretive data was last revised 2019. Albumin Creatinine Ratio, Ur 44(H) 1 - 29 mg/g [facility] Urine 10/26/2024 11:4 7 AM HEALTH EDUCATION AIDE 10/26/2024 3:12 PM HEALTH EDUCATION AIDE us Bekah Balderas [employer] LAB URINE ORDERABLES Lalitha l Result [facility] [address] [place], [place] [id number] * Thyroid Function [place] (03/01/2024 10:38 AM CDT) TSH 1.34 0.30 - 4.20 mcIUnit/mL Blood 03/01/2024 10:3 8 AM CDT 03/01/2024 2:12 PM CDT hCristiana Corona MD LAB BLOOD ORDERABLES F inal Result Performing Organization Address [facility] Co de Phone Number [facility] [place] [address] [place] [address] * Hepatitis C antibody Blood (03/01/2024 10:38 AM CDT) Hep C Ab Nonreactive Nonreactive Comment: Interpretive [...] ERAL ORDERABLES Final Result Performing Organization Address [facility] de Phone Number [facility] [place] [address] [place] [address] * COLONOSCOPY (10/29/2023) Scribed Colonoscopy Unknown Historical Provider HEALTH MAINTENANCE Final Result from Last 3 Months or Most Recently Relevant to Health Maintenance Insurance [facility] [place] [facility] [place] Care Teams Side Sawyer Relationship Specialty Start Date End Date Joshua Hyatt MD [address] [facility] [address] [place] [address] PCP - General Family Practice 10/03/24 [place] [address] [facility] [address] [place] [address] Referring Physician Endocrinology Diabetes & Metabolism 08/17/23 Sheela Rees RN [address] [place] [address] [address] [place] [address] Communications Strategist 04/05/25
--- OUTSIDE RECORDS SUMMARY | 2025-05-17 09:46 | XMS_ITS | Clinical Summary ---
Author Organization [facility] Address [address] [place] [address] Phone Care Team Providers Care Woods Superintendent Name Role Phone Unavailable Primary Care Provider [...] (LIPITOR) 40 mg tabletIndicatio ns:[place]the[place]clero sis [place] coronary artery of [place] heart without angina pectoris,Type 1 diabetes mellitus [...] right foot 05/30/2021 Mild cognitive impairment 05/30/2021 correction (current) use of insulin 09/20/2018 CAD (coronary atherosclerotic disease) 9 History of heart artery stent 09/20/2018 Metabolic encephalopathy 09/20/2018 Type 1 diabetes mellitus wit h diabetic peripheral angiopathy without gangrene 09/20/2018 Immunizations Immunization Administration Dates Next Due ([employer])(12 YR UP) COVID-19 VACCINE - EMERGENCY USE AUTHORIZATION, MRNA, [id number](PF) 30 MCG/0.3 ML IM SUSP 05/27/2021,11/17/2020,10/27/2020 INFLUENZA [...] MONTHS 02/16/20242022, 01/02/2023, 06/04/2021, Additional history exists DIABETES ANNUAL FOOT EXAM 08/17/20242022, 09/22/2022, 09/23/2021 INFLUENZA VACCINE (#1) 2025 3, 07/01/2022, 06/29/2022, Additional history exists COVID-19 Vaccine (2024-2 6 season) 2025 05/27/2021, 11/17/2020, 10/27/2020 COLORECTAL SCREENING 10/28/2033 10/29/2023 Colorectal Cancer Screening [...] 9:18 AM CDT) CHOLESTEROL 121 <200 mg/dL [facility] HDL 61 > OR = 40 mg/dL [facility] TRIGLYCERIDE 97 <150 mg/dL [facility] LDL CALCULATED 42 mg/dL (calc) [facility] Comment: Reference range: <100 Desirable [...] Luis Armando BLACK et al. SAGAR. 2013;310(19): 5279-5658 (http://education.[employer]/faq/AAY114) CHOL/HDL RATIO 2.0 <5.0 (calc) [facility] TOTAL NON-HDL CHOL(LDL+VLDL) 60 <130 mg/dL (calc) [facility] Comment: For patients with diabetes plus 1 major ASCVD risk factor, treating to a non-HDL-C goal of <100 mg/dL (LDL-C of <70 mg/dL) is considered a therapeutic option. FASTING:YES FASTING: YES Test Performed at: [facility] [address] [place] [address] [facility] Blood 01/02/2023 9:18 AM CDT 01/02/2023 9:22 AM CDT Result [facility] Sheela Kim NP CHEMISTRY ORDERABLES Final R esult Performing Organization Address City/[facility]/ZIP Code Phone Number [facility] [phone] [facility] [address] [place] [address] * MICROALBUMIN/CREATININE RATIO, RANDOM UR (01/02/2023 9:18 [...] category. FASTING:YES FASTING: YES Test Performed at: [facility] [id number] [place] [address] Bridget Clemente MD 01/02/2023 9:18 AM CDT 01/02/2023 9:22 AM CDT Sheela Kim NP URINE ORDERABLES Final Resul t Performing Organization Address City/State/ZIP Co or Phone Number [facility] [phone] [facility] [address] [address] [employer] [address] * (ABNORMAL) HEMOGLOBIN A1C (01/02/2023 9:18 AM CDT) HEMOGLOBIN A1C 8.9(H) <5.7 % of total Hgb [facility] Comment: For someone without known [...] children. ESTIMATED AVERAGE GLUCOSE (MG/DL) 209 mg/dL [facility] ESTIMATED AVERAGE GLUCOSE (MMOL/L) 11.6 mmol/L [facility] Comment: FASTING:YES FASTING: YES Test Performed at: [place] [address] [place] [address] Bridget Mooney Vo Blood 01/02/2023 9:18 AM CDT 01/02/2023 9:22 AM CDT us Sheela Kim BLOCK SEALER CHEMISTRY ORDERABLES Final R esult Performing Organization Address City/[facility]/ZIP [facility] [place] [place] Phone Number [facility] [phone] [place] [address] [place] [address] * DIABETES EYE EXAM (12/30/2021) us Abstract Provider HEALTH MAINTENANCE Edited Resu lt - Final [facility]# [id number] [address] [place], [place] [id number] from Last 3 Months or Most Recently Relevant to Health Maintenance Insurance
--- OUTSIDE RECORDS SUMMARY | 2025-05-17 09:46 | XMS_ITS | Clinical Summary ---
Author Organization [facility] Address [address], [place] [address] Phone Care Team Providers Care Network Operations Center Engineer Name Role Phone Unavailable Primary Care Provider [...]
--- OUTSIDE RECORDS SUMMARY | 2025-05-17 09:46 | XMS_ITS | Encounter Summary ---
Author Organization [facility] Healthcare Address [address] [place] [address] Care Team Providers Care Drapery Seamstress Name Role Phone Myron Enamorado MD Unavailable Joshua Hyatt MD Primary Care Provi masoud Sheela Rees RN Unavailable [phone] Encounter Details Date Type Department Care Team (Late st Contact Info) Description 04/04/2025 Imaging Exam [facility] Medical Group Primary Care at [address] [place] [address] Marisa Gomez MA Social History Tobacco Use Types Packs/Day Years Used Date Smoking Tobacco: Every Day Cigarettes 1 46.7 Started: 1976 Smokeless Tobacco: Never Alcohol Use Standard Drinks/Week Comments No 0 (1 standard drink = 0.6 oz pur e alcohol) [facility] Utilities Answer Date Recorded In the past 12 months has [employer], gas, oil, or water [employer] threatened to shut off services in your [...] How often do you attend chur or jain services? Never 04/06/2025 Do you belong to any clubs o r organizations such as jehovah's witness groups, unions, fraternal or athletic groups, or [...] any time in the past 12 m [facility], were you homeless or living in a skilled nursing (including now)? No 04/06/2025 Personal Safety Answer Date Recorded Have you ever been in or are you currently in a harmful physical or emotional relationship or is someone making you feel afraid or unsafe? 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
== END 2025-05-17 09:02 | disposition home or self-care (01) ==
PROVIDERS: Visit Provider Podiatrist Foot & Ankle Surgery
DX: I70.203 Unspecified atherosclerosis of native arteries of extremities, bilateral legs (principal)
CPT/HCPCS: 93923